=== PATIENT | female | born 1940 | race African-American/Black ===

== ENCOUNTER 2018-11-09 15:02 | Inpatient (IN) | payer MEDICARE, OTHER ==
--- NOTE | 2018-11-09 16:19 | RAD ---
CHEST ONE VIEW: 11/09/18 HISTORY: Weakness. COMPARISON: Radiograph 2006. FINDINGS: There appears to be some bronchiectasis in the upper lobes. No pneumothorax. No effusion. No air spac e consolidation. Cardiac silhouette and mediastinal contours are within normal limits. IMPRESSION: Mild scarring versus cephalization of the pulmonary vasculature in the upper lobes. No acute intratho racic abnormality. POS: CET
--- NOTE | 2018-11-09 16:19 | RAD ---
EXAM: 2 views of the left hip HISTORY: Left hip pain COMPARISON: None FINDINGS: 2 views of the left hip shows no evidence of acute fracture or dislocation. No degenerative changes are seen. No soft tissue swelling is present. A catheter in the pelvis may represent a YARDAGE CALLER shunt. IMPRESSION: No evidence of acute osseous abnormality.
--- NOTE | 2018-11-09 16:25 | RAD ---
EXAM: 2 views of the right hip HISTORY: Right hip pain COMPARISON: None FINDINGS: 2 views of the right hip shows no evidence of acute fracture or dislocation. There is protr usio of the right hip into the pelvis which can be seen with multiple etiologies. There is joint space narrowing of the acetabular roof. No soft tissue swelling is present. A catheter in the pelvis may represent a WELDER FABRICATOR shunt. IMPRESSION: Right hip degenerative change as above
--- NOTE | 2018-11-09 16:31 | RAD ---
EXAM: XR Pelvis AP STANDARD PROVIDED CLINICAL HISTORY: History COMPARISON: None FINDINGS: Partial visualization of a right ureteral stent with the distal portion overlying the expected locati on urinary bladder. There is bilateral hip osteoarthritis. There is disruption of the iliopectineal line on the right sug gesting an acetabular fracture on the right. There is no evidence of a dislocation. Degenerative changes are seen in the lower lumbar spine. IMPRESSION: Fracture right acetabulum. Further evaluation with CT pelvis is recommended. Above findings discussed with Angélica Boucher, Nurse practitioner in the emergency department on 11/09 at 1627 hours.
--- NOTE | 2018-11-09 16:37 | CT ---
BRAIN CT WITHOUT IV CONTRAST: 11/09/18 HISTORY: Altered mental status. Not feeling well, weakness, headache. There is some motion artifact. Low attenuation change in the anterior limb of the left internal capsu le, evidence for an old lacunar infarct. No focal mass or midline shift. No intra or extra-axial hemo rrhage. IMPRESSION: Old left sided lacunar infarct. No mass, bleed or other acute process. POS: TPC
[2018-11-09 16:50] LABS: #Lymphocytes 1.2 thou/uL (1.20-3.40); #Monocytes 2.1 thou/uL (0.11-0.59); #Neutrophils 12.8 thou/uL (1.40-6.50); %Basophils 0.1 % (0.0-1.0); %Eosinophils 0.1 % (0.0-10.0); %Lymphocytes 7.5 % (21.0-51.0); %Monocytes 13.1 % (0.0-10.0); %Neutrophils 79.3 % (42.0-75.0); Hemoglobin 8.2 g/dL (12.0-16.0); Mean Corpuscular HGB CONC 32.9 g/dL (32.0-36.0); Mean Corpuscular Hemoglobin 27.5 pg (27.0-31.0); Mean Corpuscular Volume 83.6 fL (78.0-98.0); Mean Platelet Volume 7.2 fL (7.4-10.4); Platelet Count 529 thou/uL (130-400); RBC Distribution Width 15.9 % (11.5-14.5); Red Blood Cell (RBC) Count 2.99 mill/uL (4.20-5.40); White Blood Cell (WBC) Count 16.2 thou/uL (4.8-10.8)
[2018-11-09 16:59] LABS: Bilirubin Negative (Negative); Blood, Urine Large (Negative); Clarity Clear (Clear); Glucose, Urine (Dipstick) Negative (Negative); Leukocyte Large (Negative); Nitrite Negative (Negative); Protein, Urine (Dipstick) > or equal to 300 mg/dL (Neg-Trace); Urobilinogen 0.2 mg/dL (0.2-1.0)
[2018-11-09 17:08] LABS: Bacteria/HPF 4+ HPF (None Seen); Hyaline Casts/LPF NONE SEEN LPF (0-3 Hyaline); Squamous Epithelial 0-3 HPF (0-3)
[2018-11-09 17:10] LABS: ALT (SGPT) 11 U/L (8-55); AST (SGOT) 12 U/L (5-34); Albumin 2.9 g/dL (3.4-4.8); Alkaline Phosphatase 96 U/L (40-150); Anion Gap 15 mmol/L (10-20); BUN (Urea Nitrogen) 79 mg/dL (9.8-20.1); Bilirubin, Total 0.2 mg/dL (0.2-1.2); CK (CPK) 103 U/L (29-168); Calc. Creatinine Clearance 0 mL/min (70-130); Calcium 9.3 mg/dL (7.8-10.44); Carbon Dioxide 14 mmol/L (23-31); Chloride 107 mmol/L (98-107); Estimated GFR-MDRD 14; Glucose 129 mg/dL (83-110); Potassium 5.4 mmol/L (3.5-5.1); Protein, Total 7.9 g/dL (6.0-8.3); Sodium 131 mmol/L (136-145)
--- NOTE | 2018-11-09 17:11 | CT ---
CT pelvis noncontrast HISTORY: Fall. Pelvic injury. FINDINGS: Nondisplaced comminuted fracture involves the superior and medial padilla of the right acetab ulum, including the anterior column and the posterior wall. No adjacent hematoma is apparent. There are degenerative changes of the hips, sacroiliac joints, and lower lumbar spine. Calcification in the arterial structures. Right ureteral stent partially visualized. IMPRESSION: Comminuted nondisplaced right acetabular fracture with intra-articular components.
[2018-11-09 17:29] LABS: CKMB 1.2 ng/mL (0-6.6)
[2018-11-09] MEDS ORDERED: cefTRIAXone\\ROCEPHIN 2 GM VIAL ONE (18:21)
[2018-11-09] MEDS ORDERED: hydrALAZINE 20 MG/ML VIAL SLOW IVP PRN (18:33)
[2018-11-09] MEDS ORDERED: Ondansetron PF 4 MG/2 ML Vial IVP PRN (18:33)
[2018-11-09] MEDS ORDERED: Promethazine HCl 25 MG/ML VIAL IM PRN (18:33)
[2018-11-09] MEDS ORDERED: Dextrose 50% Abboject 50 ML SYRINGE SLOW IVP PRN (18:33)
[2018-11-09] MEDS ORDERED: Dextrose 5% in Water 1,000 ML IV PRN (18:33)
[2018-11-09] MEDS ORDERED: traMADol HCl 50 MG TAB PO PRN (18:35)
[2018-11-09 20:15] LABS: Lactic Acid 1.2 mmol/L (0.5-2.2)
[2018-11-09] MEDS ORDERED: Sodium Chloride 1 GM TAB PO SCH (21:00)
[2018-11-09] MEDS ORDERED: Prevnar 13-Val Conj/PF 0.5 ML SYRINGE IM ONE (21:30)
[2018-11-09] MEDS: Senokot S 8.6-50 MG TAB PO SCH (22:09)
[2018-11-09] MEDS: Famotidine 20 MG TAB PO SCH (22:10)
[2018-11-09] MEDS: Cipro 250 MG TAB PO SCH (22:10)
[2018-11-09] MEDS: Acetaminophen 500 MG TAB PO SCH (22:10)
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
[2018-11-10] MEDS: Acetaminophen 500 MG TAB PO SCH ×4 (02:28→22:00)
[2018-11-10 05:07] LABS: Anion Gap 15 mmol/L (10-20); BUN (Urea Nitrogen) 80 mg/dL (9.8-20.1); Calc. Creatinine Clearance 11 mL/min (70-130); Calcium 9.7 mg/dL (7.8-10.44); Carbon Dioxide 16 mmol/L (23-31); Chloride 112 mmol/L (98-107); Estimated GFR-MDRD 16; Glucose 117 mg/dL (83-110); Magnesium 2.4 mg/dL (1.6-2.6); Phosphorus 3.8 mg/dL (2.3-4.7); Potassium 5.1 mmol/L (3.5-5.1); Sodium 138 mmol/L (136-145)
[2018-11-10 05:34] LABS: Band 13 % (5-11); Hemoglobin 8.5 g/dL (12.0-16.0); Lymphocytes 10 % (21-51); MDiff Complete? YES; Mean Corpuscular HGB CONC 31.8 g/dL (32.0-36.0); Mean Corpuscular Hemoglobin 26.4 pg (27.0-31.0); Mean Corpuscular Volume 83.1 fL (78.0-98.0); Mean Platelet Volume 8.7 fL (7.4-10.4); Monocytes 9 % (0-10); Neutrophil 66 % (42-75); Platelet Count 402 thou/uL (130-400); RBC Distribution Width 16.2 % (11.5-14.5); Red Blood Cell (RBC) Count 3.23 mill/uL (4.20-5.40); White Blood Cell (WBC) Count 13.6 thou/uL (4.8-10.8)
[2018-11-10] MEDS: Cipro 250 MG TAB PO SCH ×4 (06:18→22:00)
[2018-11-10] MEDS ORDERED: Cyclobenzaprine 10 MG TAB PO PRN (08:51)
--- NOTE | 2018-11-10 10:28 | CON ---
DATE OF CONSULTATION: 11/10/2018 REQUESTING PHYSICIAN: Christo Emerson MD CONSULTING PHYSICIAN: Jomar Grace MD REASON FOR CONSULTATION: Isolated right hemipelvis/acetabular fracture. BRIEF CLINICAL HISTORY: Shabana is an 78-year-old female, who was admitted by the Trauma Team yesterday evening after she slipped and fell at home. Plain radiographs obtained in the emergency room demonstrated a right minimally displaced acetabular fracture. She ambulates with a prosthesis secondary to a below-knee amputation 7 years ago. She has been admitted to the Telemetry Service and Dr. Young has also been consulted to further evaluate the circumstances of the fall. PHYSICAL EXAMINATION: GENERAL: This is an elderly and frail-appearing female, in no apparent distress. She is lying on her right side in the bed. She appears comfortable. MUSCULOSKELETAL: In her right hemipelvis, there is no displacement noted. There is no bruising. No breaks in the skin. Range of motion of the hips not assessed due to known underlying fracture. Neurovascular status difficult to assess due to below-knee amputation. IMAGING STUDIES: AP pelvis demonstrates a right hemipelvis fracture with minimal displacement extending through the acetabulum on the right. The medial wall appears to be a little displaced, but there is no gross protrusio. She does have deepening of the socket consistent with osteoarthritis, which probably led to the thinning of the medial wall. Superior aspect of the acetabulum appears to be intact, although she does have pretty significant arthritis on this side as far as deepening is concerned. IMPRESSION: 1. Acute right hemipelvis fracture (medial acetabular wall). 2. Deepening of the socket secondary to longstanding osteoarthritis of right hip. PLAN: 1. No surgical management is recommended at this time. Modified weightbearing to strict nonweightbearing on the right if possible. 2. No surgical plans are being made at this time for management of this pelvis. We will see the patient back and follow while she is hospitalized. Job ID: [id number]
--- NOTE | 2018-11-10 10:55 | ULT ---
US Renal Bilateral STANDARD HISTORY: Acute renal failure. COMPARISON: CT examination of 09/04/2006 FINDINGS: This examination was technically limited due to body habitus and inability to hold breath a nd inability to hold still for the exam. The right kidney measures 11.5 cm in size. There is a dense calcification seen in what appears to be the renal pelvis. The lower pole the right kidney has a very lobulated contour and I cannot exclude this is representing a mass on the basis of this study associated with this lobulated contour is some linear echogenic areas possibly calcification. This appears to measure approximately 7 cm in size. The left kidney is of increased echogenicity. It measures 11.2 cm. There is a 1 cm hypoechoic area in the inferior pole probably a parapelvic cyst. No obstruction. The bladder is unremarkable. Doppler evaluation with spectral analysis: Right renal artery velocity measurements are 156 cm/s the left are 133 cm/s. Aortic velocities are 16 7 cm/s. The resistive index on the right is 0.86 and on the left 0.83. IMPRESSION: 1. Dense calcification within the region of the right renal pelvis. The right kidney is distorted in appearance it has a lobulated masslike contour to the mid the lower pole region, I'm not certain where this is related to lobulation or a renal mass. Further investigation with CT would be recommend ed with and without contrast if possible. 2. Increased echogenicity to the cortex of the left kidney suggesting medical renal parenchymal disea se. No obstruction. 3. Mildly elevated resistive indexes of both kidneys.
[2018-11-10] MEDS: Polyethylene Glycol 3350 17 GM Packet PO SCH (11:18)
[2018-11-10] MEDS: Senokot S 8.6-50 MG TAB PO SCH ×2 (11:19→22:01)
--- NOTE | 2018-11-10 13:48 | PRG ---
DATE OF SERVICE: 11/10/2018 SUBJECTIVE: The patient was seen this morning, lying in bed on her left side. Reported pain was well controlled. She slept well overnight. The patient is still not fully cooperative with exam, but she reported she had no acute issues. She has had been previously placed on a low-potassium diabetic diet, which had been held by the nurses as they were concerned that she may have some kind of swallow abnormality. However, Dr. Mckeon did recommend that they performed a bedside swallow evaluation and put the diet back in for the patient. Dr. Grcae of Orthopedic Surgery to see the patient today as well as Dr. Young of Nephrology who follows the patient in the outpatient basis. OBJECTIVE: VITAL SIGNS: Temperature 99.1, pulse 83, respirations 18, oxygen saturation 95% on room air, and blood pressure 136/65. GENERAL: Well-appearing elderly female, lying in bed with no signs of acute distress. PULMONARY: Equal chest rise and fall. Clear breath sounds bilaterally. No signs of acute respiratory distress. CARDIAC: Regular rate and rhythm. No murmurs, gallops, or rubs. GI: Abdomen is soft, nontender, nondistended. EXTREMITIES: 2+ pulses in bilateral upper and left lower extremity. Right lower extremity with previous BKA. Otherwise, extremities are without signs of swelling. Gross motor and sensation are intact. NEUROLOGIC: GCS is 14, -1 for verbal, which is her baseline. Pupils equal, round, reactive to light bilaterally. Gross motor and sensation are intact bilaterally. LABORATORY FINDINGS: White count 13.6, hemoglobin 8.5, hematocrit 26.9, platelets 402. Sodium 138, potassium 5.1, chloride 112, carbon dioxide 16, BUN 8, creatinine 3.28, glucose 117, phosphorus 3.8, magnesium 2.4, troponin 0.030. DIAGNOSTIC FINDINGS: Echo completed today demonstrates left ventricular size is normal. Ejection fraction is visually estimated at 55% to 60%. The left atrium is moderately dilated. Mild annular calcification. No evidence of mitral regurg. Structurally normal aortic valve with no significant stenosis or regurgitation. Mild tricuspid regurgitation. Mildly elevated pulmonary artery pressure. Renal ultrasound ordered by Dr. Young completed today demonstrates dense calcification within the region of the right renal pelvis. The right kidney is distorted in appearance and it is lobulated masslike contour to the middle to lower pole region. I am not certain whether this is related to a lobulation or renal mass. Further investigation with CT would be recommended with and without contrast if possible. Increased echogenicity to the cortex of the left kidney suggests medical renal parenchymal disease. No obstruction. Mildly elevated restrictive index of both kidneys. ASSESSMENT: 1. Status post unwitnessed fall 3 days before presentation. 2. Right acetabular fracture. 3. Urinary tract infection, uncomplicated. 4. Hyponatremia, resolved. 5. Hyperkalemia, improved. 6. History of right lower extremity below-knee amputation, chronic kidney disease, left ureteral stent, diabetes, and hypertension. PLAN: The patient will continue monitoring on the telemetry floor. She has no arrhythmias. She will be transferred to the surgical floor as early as tomorrow. The patient is to be seen by Dr. Grace today for further evaluation of the right acetabular fracture. She is non-op until that time. Dr. Young of Nephrology to see the patient. He sees her on outpatient basis. He will make further recommendations at that time. She is to have a low-potassium diabetic diet. Continue current pain regimen. Cipro x5 days for uncomplicated UTI. The patient still has blood and urine cultures pending. We will follow those up to work with Physical and Occupational Therapy after deemed safe by Dr. Grace. The patient will likely be discharged to a [facility] facility and that consult has been placed for the case workers. The patient was seen and examined by Dr. Mckeon this morning during rounds. Job ID: [id number]
[2018-11-10] MEDS: Nystatin 500,000 UNITS/5 ML UDCUP SSW SCH ×3 (13:59→22:00)
[2018-11-10] MEDS: hydrALAZINE 25 MG TAB PO SCH ×2 (14:01→22:01)
[2018-11-10] MEDS: Metoprolol Tartrate 50 MG TAB PO SCH (14:11)
--- NOTE | 2018-11-10 14:49 | PQF ---
CLINICAL DOCUMENTATION IMPROVEMENT CLARIFICATION FORM: ICD-10 Updated PLEASE DO AN ADDENDUM TO THE PROGRESS NOTE WITH ANY DOCUMENTATION UPDATES OR ADDITIONS AND CARRY THROUGH TO DC SUMMARY. THANK YOU. DATE: 11/10/18 ATTN: VIJAY ANAND Please exercise your independent, professional judgment in responding to the clarification form. Clinical indicators are provided on the bottom of this form for your review Please check appropriate box(es): [ ] Sepsis due to: (Pna, UTI, gangrenous gall bladder, etc.) Due to: [ ] Device (please specify) [ ] Implant [ ] Graft [ ] Infusion [ ] SIRS due to non-infectious process (please specify etiology) [ ] with organ dysfunction [ ] without organ dysfunction [ ] Severe sepsis with acute organ dysfunction of: (Examples: respiratory failure, encephalopathy, acute kidney failure, other) [ ] Septic Shock [ ] Localized infection without sepsis [ ] Other diagnosis [ ] Unable to determine In addition, please specify: Present on Admission (POA): [ ] Yes [ ] No [ ] Unable to determine For continuity of documentation, please document condition throughout progress notes and discharge summary. Thank You. CLINICAL INDICATORS - SIGNS / SYMPTOMS / LABS ER NOTE: "PATIENT IS CRITICALLY ILL WITH SEPSIS WITH END ORGAN DYSFUNCTION" WBC 16.2 BANDS 13 RISKS: UTI ACUTE RENAL FAILURE (ER NOTE) TREATMENT: IV ROCEPHIN (ER) CIPRO (11/09-11/14) BLOOD AND URINE CULTURES NEPHROLOGY CONSULT (This form is maintained as a part of the permanent medical record) 2014 [employer]. All Rights Reserved PAPO [email or web address] Office: [phone] [facility]
[2018-11-10] MEDS: Heparin 5,000 UNITS/ML VIAL SC SCH (22:00)
[2018-11-10] MEDS: Famotidine 20 MG TAB PO SCH (22:06)
[2018-11-11] MEDS: Acetaminophen 500 MG TAB PO SCH ×4 (02:50→21:41)
[2018-11-11] MEDS: Cipro 250 MG TAB PO SCH ×2 (05:57→21:41)
[2018-11-11 06:31] LABS: Anion Gap 16 mmol/L (10-20); BUN (Urea Nitrogen) 72 mg/dL (9.8-20.1); Calc. Creatinine Clearance 12 mL/min (70-130); Calcium 9.6 mg/dL (7.8-10.44); Carbon Dioxide 13 mmol/L (23-31); Chloride 113 mmol/L (98-107); Estimated GFR-MDRD 19; Glucose 108 mg/dL (83-110); Magnesium 2.4 mg/dL (1.6-2.6); Phosphorus 3.7 mg/dL (2.3-4.7); Potassium 4.9 mmol/L (3.5-5.1); Sodium 137 mmol/L (136-145)
[2018-11-11 06:38] LABS: Band 5 % (5-11); Hemoglobin 8.3 g/dL (12.0-16.0); Lymphocytes 20 % (21-51); MDiff Complete? YES; Mean Corpuscular HGB CONC 32.3 g/dL (32.0-36.0); Mean Corpuscular Hemoglobin 27.4 pg (27.0-31.0); Mean Corpuscular Volume 84.8 fL (78.0-98.0); Mean Platelet Volume 7.4 fL (7.4-10.4); Monocytes 13 % (0-10); Neutrophil 62 % (42-75); Platelet Count 580 thou/uL (130-400); Platelet Morphology Comment Appears Increased; RBC Distribution Width 16.1 % (11.5-14.5); Red Blood Cell (RBC) Count 3.03 mill/uL (4.20-5.40)
[2018-11-11] MEDS ORDERED: Lisinopril 20 MG TAB PO SCH ×2 (09:00→15:30)
[2018-11-11] MEDS: Nystatin 500,000 UNITS/5 ML UDCUP SSW SCH ×4 (09:34→21:41)
[2018-11-11] MEDS: Senokot S 8.6-50 MG TAB PO SCH ×2 (09:35→21:40)
[2018-11-11] MEDS: NIFEdipine XL 60 MG TAB PO SCH (09:37)
[2018-11-11] MEDS: traMADol HCl 50 MG TAB PO PRN (09:37)
[2018-11-11] MEDS: Metoprolol Tartrate 50 MG TAB PO SCH (09:37)
[2018-11-11] MEDS: Polyethylene Glycol 3350 17 GM Packet PO SCH (09:38)
[2018-11-11] MEDS: hydrALAZINE 25 MG TAB PO SCH ×2 (09:39→15:15)
[2018-11-11] MEDS: Heparin 5,000 UNITS/ML VIAL SC SCH ×3 (09:39→21:41)
[2018-11-11] MEDS: HumaLOG 300 UNITS/3 ML VIAL SC PRN (13:12)
[2018-11-11] MEDS ORDERED: Sodium Chloride 0.9% 500 ML IV SCH (15:15)
[2018-11-11] MEDS: Famotidine 20 MG TAB PO SCH (21:41)
[2018-11-12] MEDS: Acetaminophen 500 MG TAB PO SCH ×4 (03:06→20:34)
[2018-11-12] MEDS: Cipro 250 MG TAB PO SCH ×2 (05:59→20:34)
[2018-11-12 06:28] LABS: Anion Gap 15 mmol/L (10-20); BUN (Urea Nitrogen) 73 mg/dL (9.8-20.1); Calc. Creatinine Clearance 13 mL/min (70-130); Calcium 9.6 mg/dL (7.8-10.44); Carbon Dioxide 13 mmol/L (23-31); Chloride 116 mmol/L (98-107); Estimated GFR-MDRD 19; Glucose 118 mg/dL (83-110); Magnesium 2.3 mg/dL (1.6-2.6); Phosphorus 3.8 mg/dL (2.3-4.7); Sodium 139 mmol/L (136-145)
[2018-11-12 06:42] LABS: Band 19 % (5-11); Eosinophils 1 % (0-10); Lymphocytes 11 % (21-51); MDiff Complete? YES; Mean Corpuscular HGB CONC 30.1 g/dL (32.0-36.0); Mean Corpuscular Hemoglobin 25.7 pg (27.0-31.0); Mean Corpuscular Volume 85.4 fL (78.0-98.0); Monocytes 13 % (0-10); Neutrophil 56 % (42-75); Platelet Count 591 thou/uL (130-400); Platelet Morphology Comment Appears Increased; RBC Distribution Width 16.5 % (11.5-14.5); Red Blood Cell (RBC) Count 3.11 mill/uL (4.20-5.40); White Blood Cell (WBC) Count 9.9 thou/uL (4.8-10.8)
[2018-11-12] MEDS ORDERED: Cyclobenzaprine 10 MG TAB PO PRN (09:05)
--- NOTE | 2018-11-12 09:18 | PRG ---
DATE OF SERVICE: 11/11/2018 SUBJECTIVE: The patient is an 78-year-old female, comes into the emergency room three days after an unwitnessed fall at home. The patient sustained a right acetabular fracture and generalized weakness. The patient was admitted to telemetry under Trauma Service. Orthopedics, Dr. Grace was consulted. The patient was seen by Herbie Shah PA-C who is the assistant floor covering printer of Dr. Grace. Patient was diagnosis with acute right hemipelvic fracture, medial acetabular wall, deepening of the socket secondary to longstanding osteoarthritis of right hip. Plan of Orthopedic Surgery is no surgical management recommended at this time. Modified weightbearing to strict nonweightbearing on the right if possible. During hospital course, in telemetry, the patient was found to have UTI and right ureteral stent on pelvis CT scan. Ureteral stent history is not clear by the family member. We will contact with the patient's primary doctor to find out history of the ureteral stent. Overall, the patient has been able to tolerate a regular diet. No fever, no chest pain, no shortness of breath was noted. OBJECTIVE: GENERAL: The patient is lying down, demonstrating mild uncomfortable due to lower back pain, in no respiratory distress. VITAL SIGNS: Temperature 98.3, pulse 64, respiratory rate 18, O2 saturation 97 on room air, and blood pressure 100/49. PULMONARY: Equal chest rise and fall. Breath sounds are clear bilaterally. CARDIAC: Regular rate and rhythm. GI: Abdomen is soft and nontender. EXTREMITIES: No swelling is noted. NEUROLOGIC: GCS is 15. No gross motor and sensation examined. Pupils are equal, round, and reactive. LABORATORY FINDINGS: Her white blood cell count is 10, hemoglobin 8.3. Sodium 137, potassium 4.9, creatinine 2.88. Creatinine is improved from 3.7 on the 25th to 2.88. Blood glucose is 306. The patient is on insulin sliding scale. ASSESSMENT: 1. Status post mechanical fall. 2. Right acetabular fracture, no surgical management. 3. Urinary tract infection, right ureteral stent. 4. Chronic kidney disease. 5. Diabetes. 6. Hypertension. PLAN: 1. Continue UTI treatment. 2. Finish nutrition status. 3. Pain control. 4. Working with primary doctor, Urology doctor to determine the time course of right ureteral stenting and course of treatment. Continue to manage blood glucose using insulin sliding scale. 5. Prophylaxis DVT, gastritis, The patient was seen at request of Dr. Mckeon on round this morning, who is agreed with treatment plan. Job ID: [id number] MTDD
[2018-11-12] MEDS: NIFEdipine XL 60 MG TAB PO SCH (09:32)
[2018-11-12] MEDS: Senokot S 8.6-50 MG TAB PO SCH ×2 (09:33→20:49)
[2018-11-12] MEDS: Nystatin 500,000 UNITS/5 ML UDCUP SSW SCH ×5 (09:33→20:48)
[2018-11-12] MEDS: Metoprolol Tartrate 50 MG TAB PO SCH (09:33)
[2018-11-12] MEDS: Heparin 5,000 UNITS/ML VIAL SC SCH ×3 (09:33→20:35)
[2018-11-12] MEDS: Polyethylene Glycol 3350 17 GM Packet PO SCH (09:34)
[2018-11-12 12:32] VITALS: BMI 18.6
--- NOTE | 2018-11-12 14:19 | PRG ---
DATE OF SERVICE: 11/12/2018 SUBJECTIVE: This is an 78-year-old female, who came for evaluation of right hip pain after an unwitnessed fall at home. The patient was diagnosed with right acetabular fracture. The patient was consulted with an orthopedic doctor, and the orthopedic doctor decided nonsurgical treatment. The patient was monitored on telemetry floor. During the hospital stay, the patient reports no shortness of breath or fever. The patient was able to tolerate a regular diet. The patient 's pain is well tolerated. Weight is stable. No overnight events. We are unable to obtain history of the right renal pain and the course of treatment. The patient was seen by Nephrology, who agreed with treatment plan. Dr. Mckeon discussed with Hospitalist Dr Galindo regarding to patient transferring plan medical floor today. OBJECTIVE: VITAL SIGNS: Temperature 98, pulse 83, respiratory rate 18, O2 saturations 95% on room air, blood pressure 150/60. GENERAL: Well-appearing elderly female, lying in bed with no signs of acute distress. PULMONARY: Equal chest rise and fall. Clear breath sounds bilaterally. No signs of acute respiratory distress. CARDIAC: Regular rate and rhythm. No murmurs. GASTROINTESTINAL: Abdomen is soft, nontender, and nondistended. EXTREMITIES: 2+ pulses in bilateral upper and left lower extremities. Right lower extremity with previous BKA. Otherwise, extremities are without swelling. Gross motor and sensation are intact. NEUROLOGIC: GCS is 15. Pupils are equal, round, and reactive to light bilateral. Gross motor and sensation are intact bilaterally LABORATORY DATA: Hemoglobin 8.0. Sodium 139, potassium 5. Phosphorus 3.8. Magnesium 2.3. Calcium 9.6. Creatinine 2.94 and BUN 73. DIAGNOSTIC FINDINGS: No new diagnostic findings reported. ASSESSMENT AND PLAN: 1. Status post unwitnessed fall 3 days before presentation. 2. Right acetabular fracture. 3. Urinary tract infection, uncomplicated. 4. Hyponatremia, resolved. 5. Hyperkalemia. 6. Chronic kidney disease. 7. Right ureteral stent. 8. History of right lower extremity below-knee amputation. 9. Diabetes. 10. Hypertension. PLAN. The patient is continued to be monitored for electrolyte and kidney function. Continue UTI treatment. The patient is to work with PT and OT. The patient will be transferred to medical floor due to nonsurgical treatment of her right acetabular fracture fragment. The patient was examined and discussed with Dr. Mckeon this morning during rounds. Job ID: [id number] [email or web address]
[2018-11-12] MEDS: HumaLOG 300 UNITS/3 ML VIAL SC PRN (14:42)
--- NOTE | 2018-11-12 15:45 | PRG ---
DATE OF SERVICE: 11/12/2018 SUBJECTIVE: The patient currently eating breakfast with an aide in the room. She denies any right hip pain at this time. She states that she has been out of bed yesterday several times. She ambulates with a prosthesis secondary to a [id number] amputation, and states that she has not walked with her prosthesis yet, but has been out of bed to a bedside chair, just mainly transferring. She denies any right hip pain at this time. OBJECTIVE: VITAL SIGNS: Temperature 97.8, pulse of 62, respiratory rate of 18, and blood pressure 113/62. GENERAL: The patient is awake and alert. She is in no apparent distress. She is sitting up in bed. Evaluation of the right lower extremity shows a BKA present. Passive range of motion in the hip without any discomfort elicited. No tenderness to palpation in this region. The patient does actively move her lower extremity. ASSESSMENT AND PLAN: The patient with nonoperative nondisplaced right acetabulum fracture. Continue nonweightbearing to the right lower extremity when she uses her prosthesis. She will follow up in the office for followup evaluation with x-rays in approximately 4 weeks. We will continue to follow this patient while she is in the hospital. Job ID: [id number]
--- NOTE | 2018-11-12 17:37 | CT ---
Exam: Abdomen CT scan without IV contrast: HISTORY: Possible renal mass on ultrasound, follow-up The lung bases are clear. The liver, gallbladder, pancreas, spleen, and adrenal glands are unremarkab le. The left kidney appears unremarkable. There is marked enlargement of the right kidney with a right ureteral stent in place with extensive calcifications associated with the intrarenal portion of the stent consistent with extensive concretions. There is very severe hydronephrosis of the right kidney with a very markedly thinned renal cortex with extensive calyceal dilatation with some air wit hin the dilated renal pelvis. There is a small left renal cyst. There is 1 small left lower pole somewhat linear probable renal calculus. No large or small bowel obstruction. IMPRESSION: Enlargement of the right kidney with very severe hydronephrosis. Right ureteral stent in place with e xtensive concretions around the stent in the infrarenal aspect. Air-fluid levels within the dilated upper collecting system. Consider urology consult for further evaluation.
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
[2018-11-12] MEDS: Famotidine 20 MG TAB PO SCH (20:48)
[2018-11-13] MEDS: Acetaminophen 500 MG TAB PO SCH ×4 (03:09→21:35)
[2018-11-13] MEDS: Cipro 250 MG TAB PO SCH ×2 (05:11→21:35)
[2018-11-13] MEDS: traMADol HCl 50 MG TAB PO PRN (05:14)
[2018-11-13] MEDS: Metoprolol Tartrate 50 MG TAB PO SCH (09:12)
[2018-11-13] MEDS: Senokot S 8.6-50 MG TAB PO SCH ×2 (09:12→21:35)
[2018-11-13] MEDS: Nystatin 500,000 UNITS/5 ML UDCUP SSW SCH ×4 (09:12→21:55)
[2018-11-13] MEDS: Heparin 5,000 UNITS/ML VIAL SC SCH ×3 (09:12→21:35)
[2018-11-13] MEDS: NIFEdipine XL 60 MG TAB PO SCH (09:12)
[2018-11-13] MEDS: Polyethylene Glycol 3350 17 GM Packet PO SCH (09:12)
[2018-11-13] MEDS: HumaLOG 300 UNITS/3 ML VIAL SC PRN (17:09)
[2018-11-13] MEDS: Famotidine 20 MG TAB PO SCH (21:45)
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
[2018-11-14] MEDS: Acetaminophen 500 MG TAB PO SCH ×4 (03:39→21:38)
[2018-11-14] MEDS: Cipro 250 MG TAB PO SCH ×2 (07:16→21:38)
[2018-11-14] MEDS: NIFEdipine XL 60 MG TAB PO SCH (08:47)
[2018-11-14] MEDS: Senokot S 8.6-50 MG TAB PO SCH ×2 (08:47→21:38)
[2018-11-14] MEDS: Metoprolol Tartrate 50 MG TAB PO SCH (08:48)
[2018-11-14] MEDS: Heparin 5,000 UNITS/ML VIAL SC SCH ×3 (08:54→21:38)
[2018-11-14] MEDS: Nystatin 500,000 UNITS/5 ML UDCUP SSW SCH ×4 (09:16→21:39)
[2018-11-14] MEDS: Polyethylene Glycol 3350 17 GM Packet PO SCH (09:16)
[2018-11-14 11:18] LABS: #Eosinphils 0.2 thou/uL (0.0-0.7); #Lymphocytes 1.8 thou/uL (1.20-3.40); #Monocytes 1.3 thou/uL (0.11-0.59); #Neutrophils 5.9 thou/uL (1.40-6.50); %Basophils 0.4 % (0.0-1.0); %Eosinophils 1.7 % (0.0-10.0); %Lymphocytes 19.6 % (21.0-51.0); %Monocytes 13.7 % (0.0-10.0); %Neutrophils 64.6 % (42.0-75.0); Hemoglobin 8.2 g/dL (12.0-16.0); Mean Corpuscular HGB CONC 32.8 g/dL (32.0-36.0); Mean Corpuscular Hemoglobin 27.7 pg (27.0-31.0); Mean Corpuscular Volume 84.5 fL (78.0-98.0); Platelet Count 576 thou/uL (130-400); RBC Distribution Width 16.4 % (11.5-14.5); Red Blood Cell (RBC) Count 2.94 mill/uL (4.20-5.40); White Blood Cell (WBC) Count 9.1 thou/uL (4.8-10.8)
[2018-11-14 11:37] LABS: Anion Gap 16 mmol/L (10-20); BUN (Urea Nitrogen) 56 mg/dL (9.8-20.1); Calc. Creatinine Clearance 14 mL/min (70-130); Calcium 9.7 mg/dL (7.8-10.44); Carbon Dioxide 16 mmol/L (23-31); Chloride 114 mmol/L (98-107); Estimated GFR-MDRD 23; Glucose 123 mg/dL (83-110); Potassium 5.5 mmol/L (3.5-5.1); Sodium 140 mmol/L (136-145)
--- NOTE | 2018-11-14 15:21 | PDOC.PN ---
- Subjective Encounter Start Date: 11/14/18 Encounter Start Time: 14:18 No complaints. - Objective Vital Signs & Weight: Vital Signs (12 hours) Temp Pulse Resp BP BP Pulse Ox 11/14/18 15:12 97.8 F 72 16 137/66 100 11/14/18 11:25 98.2 F 74 14 115/52 L 100 11/14/18 08:47 82 11/14/18 08:18 99 11/14/18 07:18 98.2 F 82 12 138/62 99 11/14/18 03:57 97.9 F 82 16 155/73 H 99 Weight Admit Weight 108 lb 4.8 oz Weight 108 lb 3 oz I&O: 11/13/18 11/14/18 11/15/18 06:59 06:59 06:59 Intake Total 120 240 490 Output Total 1 1043 Balance 120 239 -553 Result Diagrams: 11/14/18 11:07 11/14/18 11:07 Additional Labs: Accuchecks 11/14/18 11/14/18 11/13/18 11:29 06:08 20:31 POC Glucose 132 H 136 H 136 H 11/13/18 16:00 POC Glucose 180 H Phys Exam - Physical Examination Constitutional: NAD Confused at baseline with dementia Respiratory: no wheezing, no rales, no rhonchi Cardiovascular: RRR, no significant murmur, no rub Gastrointestinal: soft, non-tender, no distention, positive bowel sounds Musculoskeletal: no edema Neurological: non-focal Psychiatric: normal affect Skin: normal turgor Dx/Plan (1) Closed right acetabular fracture Code(s): S32.401A - UNSP FRACTURE OF RIGHT ACETABULUM, INIT FOR CLOS FX Status : Acute Comment: Non-surgical. NWB. (2) UTI (urinary tract infection) Status: Acute Comment: Likely chronic and related to the indwelling catheter. Continue Cipro indefinitely or until the stent situation is surgically resolved. (3) Hydroureter Code(s): N13.4 - HYDROURETER Status: Acute Comment: Chronic. Secondary to concretions around the very old stent. (4) Inflammatory reaction due to indwelling ureteral stent Code(s): T83.592A - I/I REACT D/T INDWELLING URETERAL STENT, INITIAL ENCOUNTER Status: Acute (5) CKD (chronic kidney disease), stage IV Code(s): N18.4 - CHRONIC KIDNEY DISEASE, STAGE 4 (SEVERE) Status: Acute (6) Anemia Code(s): D64.9 - ANEMIA, UNSPECIFIED Status: Acute (7) Thrombocytosis Status: Acute (8) HTN (hypertension) Code(s): I10 - ESSENTIAL (PRIMARY) HYPERTENSION Status: Acute (9) Diabetes Code(s): E11.9 - TYPE 2 DIABETES MELLITUS WITHOUT COMPLICATIONS Status: Acute - Plan * Will need SNF while healing from the acetabular fracture. * NWB even with prosthesis until healed. * Will need to stay on suppressive abx until she is seen by Urology and a definitive plan determined. Life-long suppression may be the best answer. * Will need to follow up with ortho after to reassess the acetabulum and to be released for weight-bearing at some point. * Case management consulted for SNF placement.
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
[2018-11-14] MEDS: Famotidine 20 MG TAB PO SCH (21:38)
[2018-11-15] MEDS: Acetaminophen 500 MG TAB PO SCH ×4 (02:58→21:39)
[2018-11-15] MEDS: Nystatin 500,000 UNITS/5 ML UDCUP SSW SCH ×4 (07:52→21:39)
[2018-11-15] MEDS: Polyethylene Glycol 3350 17 GM Packet PO SCH (07:52)
[2018-11-15] MEDS: Senokot S 8.6-50 MG TAB PO SCH ×2 (07:52→21:39)
[2018-11-15] MEDS: Heparin 5,000 UNITS/ML VIAL SC SCH ×3 (07:54→21:39)
[2018-11-15] MEDS: Metoprolol Tartrate 50 MG TAB PO SCH (07:54)
[2018-11-15] MEDS: NIFEdipine XL 60 MG TAB PO SCH (07:54)
--- NOTE | 2018-11-15 10:17 | PRG ---
DATE OF SERVICE: 11/15/2018 SUBJECTIVE: Shabana is an 78-year-old female, we have been following for a right superomedial wall acetabular fracture. She has been nonweightbearing, but the patient does have a prosthesis on the right leg secondary to BKA some years ago. Otherwise, she has been compliant. Repeat radiographs obtained today demonstrate actually an improvement in the fracture appearance. There is no protrusio noted in this otherwise deep socket arthritic hip. PHYSICAL EXAMINATION: Hip range of motion has improved, but she is still nonweightbearing. IMPRESSION: An 78-year-old female with right hip deep socket arthritis with a superomedial wall minimally displaced fracture with interval improvement. PLAN: 1. Continue nonweightbearing. 2. Re-consult as needed. 3. Follow up in 2 to 3 weeks in clinic with radiographs has been ordered on the discharge plan. Job ID: [id number]
--- NOTE | 2018-11-15 11:10 | RAD ---
RIGHT HIP 2 VIEWS: Date: 11/15/18 INDICATION: History of right hip fracture. COMPARISON: Prior exam dated 11/09/18. FINDINGS: The right hip acetabular fracture with mild protrusio deformity is not appreciably changed from the c omparison examination. Diffuse osteopenia is again noted. There is partial visualization of a right u reteral stent. IMPRESSION: Stable right acetabular fracture. POS: CET
--- NOTE | 2018-11-15 11:25 | RAD ---
AP VIEW PELVIS: Date: 11/15/18 INDICATION: Evaluate fracture. COMPARISON: Prior exam dated 11/09/18. FINDINGS: The superior and medial right acetabular wall fracture is not appreciably changed in position. Diffus e osteopenia is similar appearing. Protrusio deformity of the right hip is stable. Right-sided ureter al stent is stable. Diffuse osteopenia persists. IMPRESSION: Right acetabular fracture without evidence of displacement or interval healing. POS: CET
[2018-11-15] MEDS: HumaLOG 300 UNITS/3 ML VIAL SC PRN (11:59)
--- NOTE | 2018-11-15 17:52 | PDOC.PN ---
- Subjective Encounter Start Date: 11/15/18 Encounter Start Time: 17:50 Ms. Marina was seen today in follow-up of fall with acetabular fracture. She does not have any complaints. - Objective MAR Reviewed: Yes Vital Signs & Weight: Vital Signs (12 hours) Temp Pulse Resp BP BP Pulse Ox 11/15/18 15:44 98.5 F 68 16 136/53 L 100 11/15/18 11:00 98.3 F 73 14 149/70 H 97 11/15/18 08:09 97 11/15/18 07:54 73 11/15/18 07:49 98 F 72 14 121/63 97 Weight Admit Weight 108 lb 4.8 oz Weight 108 lb 3 oz I&O: 11/14/18 11/15/18 11/16/18 06:59 06:59 06:59 Intake Total 240 970 Output Total 1 1043 Balance 239 -73 Result Diagrams: 11/14/18 11:07 11/14/18 11:07 Additional Labs: Accuchecks 11/15/18 11/15/18 11/15/18 15:49 11:04 05:41 POC Glucose 117 H 172 H 107 11/14/18 20:32 POC Glucose 154 H Phys Exam - Physical Examination HEENT: PERRLA Respiratory: no wheezing, no rales, no rhonchi, clear to auscultation bilateral Cardiovascular: RRR, no significant murmur, no rub Gastrointestinal: soft, non-tender, no distention, positive bowel sounds Musculoskeletal: no edema, pulses present Dx/Plan (1) Closed right acetabular fracture Code(s): S32.401A - UNSP FRACTURE OF RIGHT ACETABULUM, INIT FOR CLOS FX Status : Acute Comment: Non-surgical. NWB. (2) Diabetes Code(s): E11.9 - TYPE 2 DIABETES MELLITUS WITHOUT COMPLICATIONS Status: Acute (3) HTN (hypertension) Code(s): I10 - ESSENTIAL (PRIMARY) HYPERTENSION Status: Acute - Plan * Right closed acetabular fracture-continue conservative management * DM- blood glucose is stable * HTN- blood pressure is stable * Awaiting long-term placement.
[2018-11-15] MEDS: Famotidine 20 MG TAB PO SCH (21:38)
[2018-11-16] MEDS: Acetaminophen 500 MG TAB PO SCH ×4 (04:53→19:48)
[2018-11-16] MEDS: Polyethylene Glycol 3350 17 GM Packet PO SCH (09:47)
[2018-11-16] MEDS: Metoprolol Tartrate 50 MG TAB PO SCH (09:47)
[2018-11-16] MEDS: NIFEdipine XL 60 MG TAB PO SCH (09:47)
[2018-11-16] MEDS: Heparin 5,000 UNITS/ML VIAL SC SCH ×3 (09:47→19:48)
[2018-11-16] MEDS: Nystatin 500,000 UNITS/5 ML UDCUP SSW SCH ×4 (09:47→19:48)
[2018-11-16] MEDS: Senokot S 8.6-50 MG TAB PO SCH ×2 (09:48→19:41)
--- NOTE | 2018-11-16 11:51 | PDOC.PN ---
- Subjective Encounter Start Date: 11/16/18 Encounter Start Time: 11:00 Subjective: awake, not in distress - Objective MAR Reviewed: Yes Vital Signs & Weight: Vital Signs (12 hours) Temp Pulse Resp BP Pulse Ox 11/16/18 09:47 71 11/16/18 07:30 98.4 F 71 16 120/57 L 100 11/16/18 04:15 98.2 F 69 18 156/62 H 100 11/16/18 00:00 98.4 F 65 16 152/67 H 99 Weight Admit Weight 108 lb 4.8 oz Weight 108 lb 3 oz I&O: 11/15/18 11/16/18 11/17/18 06:59 06:59 06:59 Intake Total 970 240 Output Total 1043 Balance -73 240 Result Diagrams: 11/14/18 11:07 11/14/18 11:07 Additional Labs: Accuchecks 11/16/18 11/15/18 11/15/18 05:40 21:16 15:49 POC Glucose 96 119 H 117 H Phys Exam - Physical Examination HEENT: PERRLA, moist MMs Neck: no JVD, supple Respiratory: no wheezing, no rales Cardiovascular: RRR, no significant murmur Gastrointestinal: soft, non-tender, positive bowel sounds Musculoskeletal: pulses present right bka Neurological: non-focal, moves all 4 limbs Dx/Plan (1) ANATOLY (acute kidney injury) Code(s): N17.9 - ACUTE KIDNEY FAILURE, UNSPECIFIED Status: Acute (2) Closed right acetabular fracture Code(s): S32.401A - UNSP FRACTURE OF RIGHT ACETABULUM, INIT FOR CLOS FX Status : Acute Qualifiers: Encounter type: subsequent encounter Comment: Non-surgical. NWB. (3) CKD (chronic kidney disease), stage IV Code(s): N18.4 - CHRONIC KIDNEY DISEASE, STAGE 4 (SEVERE) Status: Chronic (4) Hydroureter Code(s): N13.4 - HYDROURETER Status: Acute Comment: Chronic. Secondary to concretions around the very old stent. (5) Diabetes Code(s): E11.9 - TYPE 2 DIABETES MELLITUS WITHOUT COMPLICATIONS Status: Chronic Qualifiers: Diabetes mellitus type: type 2 Diabetes mellitus complication status: with kidney complications Diabetes mellitus complication detail: with chronic kidney disease Chronic kidney disease stage: stage 3 (moderate) (6) HTN (hypertension) Code(s): I10 - ESSENTIAL (PRIMARY) HYPERTENSION Status: Chronic Qualifiers: Hypertension type: essential hypertension Qualified Code(s): I10 - Essential (primary) hypertension (7) Anemia Code(s): D64.9 - ANEMIA, UNSPECIFIED Status: Chronic Qualifiers: Anemia type: unspecified type Qualified Code(s): D64.9 - Anemia, unspecified - Plan hemostable -: continue lopressor, procardia xl, humalog sliding scale, nebs -: gentle iv hydration, labs for today -: dc planning -: PT to mobilize as tolerated, has right bka+fracture+NWB * . Review of Systems - Medications/Allergies Allergies/Adverse Reactions: Allergies Allergy/AdvReac Type Severity Reaction Status Date / Time No Known Drug Allergies Allergy Verified 11/09/18 21:01 Medications: Current Medications Acetaminophen (Tylenol) 1,000 mg PO 0200,0800,1400,2000 [facility] Last Admin: 11/16/18 09:46 Dose: 1,000 mg Albuterol/Ipratropium (Duoneb) 3 ml NEB Q4H PRN PRN Reason: Wheezing Cyclobenzaprine HCl (Flexeril) 5 mg PO TID PRN PRN Reason: Muscle Spasm Dextrose/Water (Dextrose 50%) 25 gm SLOW IVP PRN PRN PRN Reason: Hypoglycemia Famotidine (Pepcid) 20 mg PO Q24HR [facility] Last Admin: 11/15/18 21:38 Dose: 20 mg Glucagon (Glucagon) 1 mg IM PRN PRN PRN Reason: Hypoglycemia Heparin Sodium (Porcine) (Heparin) 5,000 units SC TID [facility] Last Admin: 11/16/18 09:47 Dose: 5,000 units Hydralazine HCl (Apresoline) 10 mg SLOW IVP Q4H PRN PRN Reason: SBP > 170 or DBP > 100 Dextrose/Water (D5w) 1,000 mls @ 0 mls/hr IV .Q0M PRN PRN Reason: Hypoglycemia Insulin Human Lispro (Humalog) 0 units SC .MILD SLIDING SCALE PRN PRN Reason: Mild Correctional Scale Last Admin: 11/15/18 11:59 Dose: 2 unit Metoprolol Tartrate (Lopressor) 50 mg PO DAILY [facility] Last Admin: 11/16/18 09:47 Dose: 50 mg Nifedipine (Procardia Xl) 60 mg PO DAILY [facility] Last Admin: 11/16/18 09:47 Dose: 60 mg Nystatin (Mycostatin) 500,000 units SSW QID [facility] Last Admin: 11/16/18 09:47 Dose: 500,000 units Ondansetron HCl (Zofran) 4 mg IVP Q6H PRN PRN Reason: Nausea Polyethylene Glycol (Miralax) 17 gm PO DAILY [facility] Last Admin: 11/16/18 09:47 Dose: Not Given Promethazine HCl (Phenergan) 12.5 mg IM Q4H PRN PRN Reason: Nausea Senna/Docusate Sodium (Senokot S) 2 tab PO BID [facility] Last Admin: 11/16/18 09:48 Dose: Not Given Sodium Chloride (Flush - Normal Saline) 10 ml IVF PRN PRN PRN Reason: Saline Flush Last Admin: 11/11/18 09:42 Dose: 10 ml Tramadol HCl (Ultram) 50 mg PO Q12H PRN PRN Reason: Moderate to Severe Pain (6-10) Last Admin: 11/13/18 05:14 Dose: 50 mg Tramadol HCl (Ultram) 50 mg PO Q12H PRN PRN Reason: Breakthrough Pain
[2018-11-16 12:46] LABS: #Eosinphils 0.2 thou/uL (0.0-0.7); #Neutrophils 6.9 thou/uL (1.40-6.50); %Basophils 0.1 % (0.0-1.0); %Lymphocytes 19.7 % (21.0-51.0); %Monocytes 9.8 % (0.0-10.0); %Neutrophils 68.4 % (42.0-75.0); Hemoglobin 8.9 g/dL (12.0-16.0); Mean Corpuscular HGB CONC 31.6 g/dL (32.0-36.0); Mean Corpuscular Hemoglobin 27.5 pg (27.0-31.0); Mean Corpuscular Volume 86.9 fL (78.0-98.0); Platelet Count 529 thou/uL (130-400); RBC Distribution Width 17.1 % (11.5-14.5); Red Blood Cell (RBC) Count 3.24 mill/uL (4.20-5.40)
[2018-11-16 13:13] LABS: Albumin-Ur 36.1 % (.); Alpha 1 - Ur 4.1 % (.); Alpha 2 - Ur 12.2 % (.); Beta-Ur 27.9 % (.); Gamma-Ur 19.7 % (.); M-Spike,% Not Observed % (Not Observed)
[2018-11-16 13:20] LABS: Chloride 115 mmol/L (98-107); Potassium 5.8 mmol/L (3.5-5.1); Sodium 138 mmol/L (136-145)
[2018-11-16 13:21] LABS: Calcium 10.3 mg/dL (7.8-10.44); Glucose 105 mg/dL (83-110)
[2018-11-16 13:23] LABS: Anion Gap 17 mmol/L (10-20); Carbon Dioxide 12 mmol/L (23-31)
[2018-11-16 13:24] LABS: Calc. Creatinine Clearance 15 mL/min (70-130); Estimated GFR-MDRD 25
[2018-11-16 13:25] LABS: BUN (Urea Nitrogen) 51 mg/dL (9.8-20.1)
[2018-11-16] MEDS: Sodium Chloride 0.45% 1,000 ML IV SCH (13:55)
[2018-11-16] MEDS: Famotidine 20 MG TAB PO SCH (19:48)
[2018-11-17] MEDS: Sodium Chloride 0.45% 1,000 ML IV SCH (03:55)
[2018-11-17] MEDS: Acetaminophen 500 MG TAB PO SCH ×2 (03:56→09:56)
[2018-11-17 08:00] VITALS: BP 143/57
[2018-11-17 08:42] LABS: #Basophils 0.1 thou/uL (0.0-0.2); #Eosinphils 0.4 thou/uL (0.0-0.7); #Lymphocytes 2.4 thou/uL (1.20-3.40); #Monocytes 0.8 thou/uL (0.11-0.59); #Neutrophils 6.3 thou/uL (1.40-6.50); %Basophils 0.7 % (0.0-1.0); %Eosinophils 3.5 % (0.0-10.0); %Lymphocytes 23.8 % (21.0-51.0); %Monocytes 8.3 % (0.0-10.0); %Neutrophils 63.7 % (42.0-75.0); Mean Corpuscular Hemoglobin 27.5 pg (27.0-31.0); Mean Corpuscular Volume 83.2 fL (78.0-98.0); Platelet Count 508 thou/uL (130-400); RBC Distribution Width 16.9 % (11.5-14.5)
[2018-11-17 08:58] LABS: Anion Gap 11 mmol/L (10-20); BUN (Urea Nitrogen) 43 mg/dL (9.8-20.1); Calc. Creatinine Clearance 18 mL/min (70-130); Calcium 9.2 mg/dL (7.8-10.44); Carbon Dioxide 18 mmol/L (23-31); Chloride 111 mmol/L (98-107); Estimated GFR-MDRD 29; Glucose 88 mg/dL (83-110); Potassium 4.9 mmol/L (3.5-5.1); Sodium 135 mmol/L (136-145)
--- NOTE | 2018-11-17 09:48 | PQF ---
CLINICAL DOCUMENTATION IMPROVEMENT CLARIFICATION FORM: ICD-10 Updated PLEASE DO AN ADDENDUM TO THE PROGRESS NOTE WITH ANY DOCUMENTATION UPDATES OR ADDITIONS AND CARRY THROUGH TO DC SUMMARY. THANK YOU. DATE: 11/17/18 ATTN: Jackelyn BE PA-C Please exercise your independent, professional judgment in responding to the clarification form. Clinical indicators are provided on the bottom of this form for your review Please check appropriate box(es): [ ] Sepsis due to: (Pna, UTI, gangrenous gall bladder, etc.) Due to: [ ] Device (please specify) [ ] Implant [ ] Graft [ ] Infusion [ ] SIRS due to non-infectious process (please specify etiology) [ ] with organ dysfunction [ ] without organ dysfunction [ ] Severe sepsis with acute organ dysfunction of: (Examples: respiratory failure, encephalopathy, acute kidney failure, other) [ ] Septic Shock [ X ] Localized infection without sepsis [ ] Other diagnosis [ ] Unable to determine In addition, please specify: Present on Admission (POA): [ ] Yes [ ] No [ ] Unable to determine For continuity of documentation, please document condition throughout progress notes and discharge summary. Thank You. CLINICAL INDICATORS - SIGNS / SYMPTOMS / LABS ER NOTE: "PATIENT IS CRITICALLY ILL WITH SEPSIS WITH END ORGAN DYSFUNCTION" WBC 16.2 BANDS 13 RISKS: UTI ACUTE RENAL FAILURE (ER NOTE) TREATMENT: IV ROCEPHIN (ER) CIPRO (11/09-11/14) BLOOD AND URINE CULTURES (This form is maintained as a part of the permanent medical record) 2014 [employer]. All Rights Reserved [employer] [email or web address] Office: [phone] [facility]
[2018-11-17] MEDS: Polyethylene Glycol 3350 17 GM Packet PO SCH (09:55)
[2018-11-17] MEDS: NIFEdipine XL 60 MG TAB PO SCH (09:55)
[2018-11-17] MEDS: Heparin 5,000 UNITS/ML VIAL SC SCH (09:55)
[2018-11-17] MEDS: Nystatin 500,000 UNITS/5 ML UDCUP SSW SCH ×2 (09:55→12:27)
[2018-11-17] MEDS: Metoprolol Tartrate 50 MG TAB PO SCH (09:56)
[2018-11-17] MEDS: Senokot S 8.6-50 MG TAB PO SCH (09:56)
[2018-11-17 11:16] VITALS: TEMP 97.5
--- NOTE | 2018-11-17 13:30 | PDOC.PN ---
- Subjective Encounter Start Date: 11/17/18 Encounter Start Time: 09:25 Subjective: awake, pleasant, not in distress - Objective MAR Reviewed: Yes Vital Signs & Weight: Vital Signs (12 hours) Temp Pulse Resp BP Pulse Ox 11/17/18 11:15 97.5 F L 70 16 100 11/17/18 09:55 70 11/17/18 08:00 97.4 F L 72 15 143/57 H 100 11/17/18 03:58 98.3 F 70 16 127/58 L 100 Weight Admit Weight 108 lb 4.8 oz Weight 108 lb 3 oz I&O: 11/16/18 11/17/18 11/18/18 06:59 06:59 06:59 Intake Total 1130 300 Balance 1130 300 Result Diagrams: 11/17/18 08:08 11/17/18 08:08 Additional Labs: Accuchecks 11/17/18 11/17/18 11/16/18 11:09 05:35 21:42 POC Glucose 151 H 94 123 H 11/16/18 16:43 POC Glucose 97 Phys Exam - Physical Examination HEENT: PERRLA, moist MMs Neck: no JVD, supple Respiratory: no wheezing, no rales Cardiovascular: RRR, no significant murmur Gastrointestinal: soft, non-tender, positive bowel sounds Musculoskeletal: no edema, pulses present Neurological: non-focal, moves all 4 limbs Dx/Plan (1) ANATOLY (acute kidney injury) Code(s): N17.9 - ACUTE KIDNEY FAILURE, UNSPECIFIED Status: Acute (2) Closed right acetabular fracture Code(s): S32.401A - UNSP FRACTURE OF RIGHT ACETABULUM, INIT FOR CLOS FX Status : Acute Qualifiers: Encounter type: subsequent encounter Comment: Non-surgical. NWB. (3) CKD (chronic kidney disease), stage IV Code(s): N18.4 - CHRONIC KIDNEY DISEASE, STAGE 4 (SEVERE) Status: Chronic (4) Hydroureter Code(s): N13.4 - HYDROURETER Status: Acute Comment: Chronic. Secondary to concretions around the very old stent. (5) Diabetes Code(s): E11.9 - TYPE 2 DIABETES MELLITUS WITHOUT COMPLICATIONS Status: Chronic Qualifiers: Diabetes mellitus type: type 2 Diabetes mellitus complication status: with kidney complications Diabetes mellitus complication detail: with chronic kidney disease Chronic kidney disease stage: stage 3 (moderate) (6) HTN (hypertension) Code(s): I10 - ESSENTIAL (PRIMARY) HYPERTENSION Status: Chronic Qualifiers: Hypertension type: essential hypertension Qualified Code(s): I10 - Essential (primary) hypertension (7) Anemia Code(s): D64.9 - ANEMIA, UNSPECIFIED Status: Chronic Qualifiers: Anemia type: unspecified type Qualified Code(s): D64.9 - Anemia, unspecified - Plan hemostable -: renal function is improving -: dc pt to [facility] -: needs encouragement to eat * .
--- NOTE | 2018-11-17 16:39 | DIS ---
DATE OF ADMISSION: 11/09/2018 DATE OF DISCHARGE: 11/17/2018 [address]POSITION: [facility] PRIMARY DISCHARGE DIAGNOSES: 1. History of fall. 2. Closed right acetabular fracture for medical management. 3. 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 4. Acute kidney injury, chronic kidney disease stage 3. 5. Diabetes mellitus type 2. 6. Hypertension. 7. Chronic anemia, likely underlying dementia. PROCEDURES DONE DURING HOSPITALIZATION: Chest x-ray done shows mild scarring versus cephalization of pulmonary vasculature in the upper lobes. No acute intrathoracic abnormality. CT pelvis noncontrast done showed comminuted, nondisplaced right acetabular fracture with intra-articular components. X-ray pelvis AP standard view showed fracture of right acetabulum. CT brain without contrast showed old left-sided lacunar infarct. No mass or bleed or acute process seen. There was old lacunar infarct in the anterior limb of left internal capsule. Two-view right hip x-ray done shows right hip degenerative change. Two-view left hip x-ray done shows no evidence of acute osseous abnormality. Echo with 2D Doppler showed EF of 55% to 60%. Ultrasound of kidneys showed dense calcification within the region of right renal pelvis. Right kidney is distorted in appearance and has a lobulated masslike contour to the mid lower pole. Increased echogenicity to the cortex of left kidney suggesting medical renal disease. Mildly elevated resistive indices of both kidneys. CT stone protocol done showed enlargement of right kidney with very severe hydronephrosis, right ureteral stent in place with extensive concretions around the stent in the infrarenal aspect. Air-fluid levels within the dilated upper collecting system was seen. AP view pelvic x-ray done on 11/15/2018 showed right acetabular fracture without evidence of displacement or interval healing. Right hip 2-view x-ray showed stable right acetabular fracture done on 11/15/2018. Blood cultures x2, no growth. Hemoglobin and hematocrit of 8 and 24, platelet count 508, MCV 83. Discharge BUN and creatinine 43 and 1.9. Admitting creatinine was 3.7. Admitting BUN was 79. Serum bicarbonate on the day of discharge is 18. DISCHARGE MEDICATIONS: 1. Hydralazine 25 mg three times daily. 2. Metoprolol tartrate 50 mg p.o. daily. 3. Procardia XL 60 mg p.o. daily. 4. Pepcid 20 mg daily. ALLERGIES: NO KNOWN DRUG ALLERGIES. INPATIENT CONSULT: 1. Dr. Ryan Mendez for Urology. 2. Dr. Grace for Orthopedic Surgery. 3. Dr. Emerson for Trauma Team. DISCHARGE PLAN: The patient to follow up with Dr. Grace in 2 to 3 weeks and primary care physician in 1 week. BRIEF COURSE DURING HOSPITALIZATION: The patient initially was sent to ER for complaints of generalized weakness. She had an unwitnessed fall 3 days prior to arrival. The patient was also confused and was in altered mental state. Initial workup in the ER revealed acute kidney injury with suspected right acetabular fracture. The patient had UTI as well. She was initially admitted by Trauma Surgery. Multiple workups were done as mentioned above. The patient was incidentally found to have had right-sided retained ureteral stent with severe hydronephrosis and hydroureter. She has had consultation with Dr. Ryan Mendez as well. The patient did not want to pursue any further intervention for the same as she would have required nephrectomy with removal of the stent. The patient remained hemodynamically stable all through her stay here. Her renal function is slowly trending back to her baseline. She was evaluated by Dr. Grace for the right acetabular fracture. She is to be nonweightbearing and will need to follow up with Dr. Grace in 2 to 3 weeks with repeat x-rays to see for healing. The fracture was minimally displaced and is for medical management. She likely has underlying dementia and is not fully oriented, but follows verbal stimuli. A total of 35 minutes was spent on discharge plan. Please see a [id number] documentation for the day of discharge on [employer] Job ID: [id number]
== END 2018-11-17 13:15 | DRG 698 ==
LOC: ERS 15:02 → 2NO 20:47 → SURG A 11-12 15:18
PROVIDERS: ADMIT Surgery; ATTEND Surgery
DX: T83.593A Infection and inflammatory reaction due to other urinary stents, initial encounter (principal); S32.401A Unspecified fracture of right acetabulum, initial encounter for closed fracture; N17.9 Acute kidney failure, unspecified; E87.1 Hypo-osmolality and hyponatremia; N13.6 Pyonephrosis; N18.4 Chronic kidney disease, stage 4 (severe); E11.22 Type 2 diabetes mellitus with diabetic chronic kidney disease; K21.9 Gastro-esophageal reflux disease without esophagitis; M16.11 Unilateral primary osteoarthritis, right hip; E87.5 Hyperkalemia; W18.39XA Other fall on same level, initial encounter; D47.3 Essential (hemorrhagic) thrombocythemia; I12.9 Hypertensive chronic kidney disease with stage 1 through stage 4 chronic kidney disease, or unspecified chronic kidney disease; D63.1 Anemia in chronic kidney disease; F03.90 Unspecified dementia, unspecified severity, without behavioral disturbance, psychotic disturbance, mood disturbance, and anxiety; Z79.4 Long term (current) use of insulin; Z89.511 Acquired absence of right leg below knee; Z87.442 Personal history of urinary calculi; Y92.009 Unspecified place in unspecified non-institutional (private) residence as the place of occurrence of the external cause; Y83.8 Other surgical procedures as the cause of abnormal reaction of the patient, or of later complication, without mention of misadventure at the time of the procedure
CPT/HCPCS: 36415; 36416; 51701; 70450; 71045; 72170; 72192; 74150; 76700; 76770; 80048; 80053; 81003; 81015; 82306; 82550; 82553; 82570; 83605; 83735; 83880; 83970; 84100; 84166; 84443; 84484; 85025; 87040; 87086; 93005; 93306; 96365; A4353; G0390; J0696; J1644

== ENCOUNTER 2018-11-27 20:48 | Inpatient (IN) | payer MEDICARE, OTHER ==
[2018-11-27 22:13] LABS: Hemoglobin 7.8 g/dL (12.0-16.0); Mean Corpuscular Hemoglobin 27.2 pg (27.0-31.0); Mean Corpuscular Volume 87.5 fL (78.0-98.0); Mean Platelet Volume 7.4 fL (7.4-10.4); Platelet Count 389 thou/uL (130-400); RBC Distribution Width 17.9 % (11.5-14.5); Red Blood Cell (RBC) Count 2.88 mill/uL (4.20-5.40); White Blood Cell (WBC) Count 6.9 thou/uL (4.8-10.8)
--- NOTE | 2018-11-27 22:27 | RAD ---
Exam: Chest one view HISTORY:Emergency exam, abnormal laboratory values Comparison: 11/09/2018 FINDINGS: Lungs: No new consolidation Cardiac silhouette:Stable Pulmonary vessels: Stable mild prominence Pleural Spaces: Clear Pneumothorax: None Osseous abnormalities: None of acuity. IMPRESSION: Stable chest
[2018-11-27 22:33] LABS: Band 4 % (5-11); Hypochromia SLIGHT = 6-15 cells (100X) (0-5/hpf); Lymphocytes 17 % (21-51); MDiff Complete? YES; Monocytes 10 % (0-10); Neutrophil 69 % (42-75); Platelet Morphology Comment Appears Adequate
[2018-11-27 22:36] LABS: ALT (SGPT) Less than 7 U/L (8-55); AST (SGOT) 7 U/L (5-34); Alkaline Phosphatase 69 U/L (40-150); Anion Gap 18 mmol/L (10-20); BUN (Urea Nitrogen) 71 mg/dL (9.8-20.1); Bilirubin, Total 0.2 mg/dL (0.2-1.2); Calc. Creatinine Clearance 0 mL/min (70-130); Calcium 9.5 mg/dL (7.8-10.44); Carbon Dioxide 15 mmol/L (23-31); Chloride 104 mmol/L (98-107); Estimated GFR-MDRD 14; Globulin 4.6 g/dL (2.4-3.5); Glucose 106 mg/dL (83-110); Potassium 6.1 mmol/L (3.5-5.1); Protein, Total 7.6 g/dL (6.0-8.3); Sodium 131 mmol/L (136-145)
[2018-11-27 22:37] LABS: Bilirubin Negative (Negative); Blood, Urine Small (Negative); Glucose, Urine (Dipstick) Negative (Negative); Leukocyte Large (Negative); Nitrite Negative (Negative); Protein, Urine (Dipstick) > or equal to 300 mg/dL (Neg-Trace); Urobilinogen 0.2 mg/dL (Less than 2)
[2018-11-27 22:41] LABS: RBC/HPF Greater than 50 HPF (0-3)
[2018-11-27 22:42] LABS: Bacteria/HPF 4+ HPF (None Seen); Clarity Cloudy (Clear); Squamous Epithelial 0-3 HPF (0-3); WBC/HPF 21-50 HPF (0-3)
[2018-11-27] MEDS ORDERED: cefTRIAXone\\ROCEPHIN 1 GM VIAL ONE (23:02)
[2018-11-28] MEDS ORDERED: Ondansetron PF 4 MG/2 ML Vial IVP PRN ×2 (03:35→14:19)
[2018-11-28] MEDS ORDERED: Acetaminophen 325 MG TAB PO PRN ×2 (03:35→14:19)
[2018-11-28] MEDS ORDERED: Ondansetron ODT 4 MG TAB SL PRN (03:35)
[2018-11-28] MEDS: Sodium Bicarbonate 150 MEQ in Dextrose 5% in Water 1,000 ML IV SCH ×2 (05:00→11:23)
[2018-11-28 06:14] LABS: Anion Gap 14 mmol/L (10-20); BUN (Urea Nitrogen) 65 mg/dL (9.8-20.1); Calc. Creatinine Clearance 10 mL/min (70-130); Calcium 9.1 mg/dL (7.8-10.44); Carbon Dioxide 22 mmol/L (23-31); Chloride 104 mmol/L (98-107); Estimated GFR-MDRD 16; Glucose 142 mg/dL (83-110); Potassium 4.5 mmol/L (3.5-5.1); Sodium 135 mmol/L (136-145)
[2018-11-28] MEDS ORDERED: Bisacodyl 5 MG TAB PO PRN (14:19)
--- NOTE | 2018-11-28 14:56 | HP ---
PRIMARY CARE PROVIDER: Vishnu Zepeda MD CHIEF COMPLAINT: Abnormal labs. HISTORY OF PRESENT ILLNESS: Ms. Marina is a pleasant 78-year-old lady, who was seen at [facility] on November 28, 2018. The patient is unable to provide any history secondary to dementia. Collateral history was obtained from review of medical record and discussion with emergency room staff. Ms. Marina was hospitalized at [facility] from to November 17 of this year for fall, closed right acetabular fracture for medical management, chronic hydroureter secondary to concretions around very old stent and acute on chronic kidney injury. She was subsequently discharged to [facility]. The patient was sent to the emergency room because she was found to have potassium of 5.9 and creatinine of 3.6. The patient denies any chest pain or shortness of breath. She denies any fevers or chills. She denies any nausea or vomiting. REVIEW OF SYSTEMS: Could not be completed because of the patient's cognitive status. PAST MEDICAL HISTORY: Kidney disease, hypertension, right lower extremity below-knee amputation, and urinary tract stent. It also appears that the patient may have a diagnosis of diabetes mellitus, but she is not on any medications for diabetes. SURGICAL HISTORY: Unable to obtain. FAMILY HISTORY: Unable to obtain. SOCIAL HISTORY: The patient denies tobacco use, alcohol use, or recreational drug use. ALLERGIES: NO KNOWN DRUG ALLERGIES. CURRENT MEDICATIONS: 1. Nifedipine 60 mg daily. 2. Famotidine 20 mg daily. 3. Hydralazine 25 mg 3 times a day. 4. Metoprolol tartrate 50 mg daily. 5. Flagyl 500 mg 3 times a day. 6. Sodium bicarbonate 325 mg 2 times a day. CODE STATUS: I could not obtain code status from the patient. [facility] papers indicate that she is full code. I tried to reach her son and sister over the telephone. I could not reach them. PHYSICAL EXAMINATION: GENERAL: On examination, Ms. Marina is awake and alert, not in acute distress. VITAL SIGNS: Blood pressure is 144/63, pulse 87, respiratory rate 16, and oxygen saturation 97% on room air. She is afebrile. EYES: No scleral icterus, no conjunctival pallor. ENT: Dry mucosal membranes. No oropharyngeal erythema or exudates. NECK: Supple, nontender, trachea is midline. RESPIRATORY: Accessory muscles of breathing are not active. Chest wall movements are symmetric bilaterally. Lungs are clear to auscultation without wheeze, rhonchi, or crepitations. CARDIOVASCULAR: S1 and S2 are heard, regular. Peripheral pulses palpable. No carotid bruit. No pericardial rub. ABDOMEN: Soft, nontender, bowel sounds heard, no hepatomegaly, no splenomegaly. NEUROLOGIC: Cranial nerves 2 through 12 intact, deep tendon reflexes 2+. MUSCULOSKELETAL: Status post right below-knee amputation, moving all 4 extremities. SKIN: No rashes or subcutaneous nodules. LYMPHATIC: No cervical lymphadenopathy. PSYCHIATRIC: Normal mood, oriented to self only, not to place or time. LABORATORY DATA: Ms. Marina's labs and investigations were reviewed. I reviewed her electrocardiogram, which shows normal sinus rhythm, no ST changes to indicate an acute coronary syndrome. I also reviewed her chest x-ray, which does not show any pulmonary infiltrates. She has normal white count, normocytic anemia with hemoglobin of 7.8, which is around her baseline, normal platelet count. Sodium 131 at 2201 hours last night and 135 at 5:42 a.m. today, potassium elevated at 6.1 at 2201 hours yesterday and normalizing at 4.5 at 5:42 a.m. today, creatinine 3.69 yesterday and 3.36 today, blood urea nitrogen 71 yesterday and 65 today, albumin decreased at 3.0, normal lactic acid and normal calcium. The remainder of the LFTs are unremarkable. Urinalysis is positive for large amount of leukocyte esterase and small amount of blood, as well as 4+ bacteria. Beta-hydroxybutyrate level is normal. ASSESSMENT AND PLAN: Ms. Marina is a pleasant 78-year-old lady, who was seen at [facility] on November 28, 2018. Her problem list includes: 1. Acute on chronic stage IV renal failure: Ms. Marina is presenting with acute on chronic renal failure, etiology unclear at this time. She is clinically dehydrated. We will provide intravenous hydration and recheck. We will also consult Nephrology Service for opinion and help with management. 2. Hypertension: We will resume patient's home medications, monitor vital signs and titrate antihypertensives as needed. 3. Urinary tract infection: We will start patient on ceftriaxone and follow urine cultures. 4. Hyponatremia: Mild, provide intravenous normal saline and recheck sodium level. 5. Hyperkalemia: This has resolved. Many thanks for allowing me to participate in your patient's care. Please feel free to contact me with any questions or concerns. LEVEL OF RISK: High. LEVEL OF COMPLEXITY: High. Job ID: [id number]
[2018-11-28] MEDS ORDERED: cefTRIAXone\\ROCEPHIN 1 GM in Sodium Chloride 0.9% 100 ML IVPB SCH (15:00)
[2018-11-28] MEDS: Sodium Chloride 0.9% 1,000 ML IV SCH (16:49)
[2018-11-28] MEDS: Heparin 5,000 UNITS/ML VIAL SC SCH ×2 (16:56→21:14)
[2018-11-28] MEDS: metroNIDAZOLE 500 MG TAB PO SCH ×2 (16:56→21:14)
[2018-11-28] MEDS: hydrALAZINE 25 MG TAB PO SCH ×2 (16:56→21:14)
[2018-11-28] MEDS: cefTRIAXone\\ROCEPHIN 1 GM in Sodium Chloride 0.9% 100 ML IVPB SCH (16:57)
[2018-11-28] MEDS ORDERED: Prevnar 13-Val Conj/PF 0.5 ML SYRINGE IM ONE (21:00)
[2018-11-28] MEDS ORDERED: Sodium Bicarbonate Tab 325 MG TAB PO SCH (21:00)
[2018-11-29 06:03] LABS: Anion Gap 13 mmol/L (10-20); BUN (Urea Nitrogen) 44 mg/dL (9.8-20.1); Calc. Creatinine Clearance 14 mL/min (70-130); Calcium 8.9 mg/dL (7.8-10.44); Carbon Dioxide 28 mmol/L (23-31); Chloride 105 mmol/L (98-107); Estimated GFR-MDRD 23; Glucose 87 mg/dL (83-110); Potassium 4.2 mmol/L (3.5-5.1); Sodium 142 mmol/L (136-145)
[2018-11-29 06:13] LABS: Band 7 % (5-11); Eosinophils 2 % (0-10); Hemoglobin 7.1 g/dL (12.0-16.0); Lymphocytes 35 % (21-51); MDiff Complete? YES; Mean Corpuscular HGB CONC 32.1 g/dL (32.0-36.0); Mean Corpuscular Hemoglobin 27.5 pg (27.0-31.0); Mean Corpuscular Volume 85.7 fL (78.0-98.0); Metamyelocyte 1 % (0-0); Monocytes 20 % (0-10); Neutrophil 35 % (42-75); Platelet Count 394 thou/uL (130-400); Platelet Morphology Comment Appears Adequate; RBC Distribution Width 17.7 % (11.5-14.5); White Blood Cell (WBC) Count 5.2 thou/uL (4.8-10.8)
[2018-11-29] MEDS: Sodium Chloride 0.9% 1,000 ML IV SCH ×2 (06:13→20:50)
[2018-11-29] MEDS: Famotidine 20 MG TAB PO SCH (08:00)
[2018-11-29] MEDS: NIFEdipine XL 60 MG TAB PO SCH (08:00)
[2018-11-29] MEDS: Sodium Bicarbonate Tab 325 MG TAB PO SCH ×3 (08:00→20:49)
[2018-11-29] MEDS: Metoprolol Tartrate 50 MG TAB PO SCH (08:00)
[2018-11-29] MEDS: Heparin 5,000 UNITS/ML VIAL SC SCH ×3 (08:01→20:50)
[2018-11-29] MEDS: metroNIDAZOLE 500 MG TAB PO SCH ×3 (08:01→20:49)
[2018-11-29] MEDS: hydrALAZINE 25 MG TAB PO SCH ×3 (08:02→20:49)
[2018-11-29] MEDS ORDERED: EPOETIN ALFA-EPBX (ESRD) 4,000 UNIT/ML VIAL SC SCH (09:00)
[2018-11-29] MEDS ORDERED: Vancomycin HCl 1 GM in Premix Bag 1 BAG IVPB SCH (11:15)
[2018-11-29] MEDS: Vancomycin HCl 500 MG in Sodium Chloride 0.9% 100 ML IVPB SCH (12:59)
[2018-11-29] MEDS: cefTRIAXone\\ROCEPHIN 1 GM in Sodium Chloride 0.9% 100 ML IVPB SCH (17:06)
--- NOTE | 2018-11-29 18:46 | PDOC.PN ---
- Subjective Encounter Start Date: 11/29/18 Encounter Start Time: 10:20 Pt seen for followup re: acute on chronic renal failure. Pt not answering questions, rambling, could not complete ROS. - Objective MAR Reviewed: Yes Vital Signs & Weight: Vital Signs (12 hours) Temp Pulse Resp BP BP Pulse Ox 11/29/18 17:16 97.9 F 88 16 174/90 H 100 11/29/18 15:25 87 146/72 H 11/29/18 12:00 98.0 F 87 18 157/70 H 98 11/29/18 08:02 84 128/54 L 11/29/18 08:00 84 128/54 L 11/29/18 07:44 98.3 F 94 16 125/54 L 99 11/29/18 07:27 100 Weight Admit Weight 104 lb 9.6 oz Weight 104 lb 9.6 oz I&O: 11/28/18 11/29/18 11/30/18 06:59 06:59 06:59 Intake Total 438 1880 1160 Balance 438 1880 1160 Result Diagrams: 11/29/18 05:05 11/29/18 05:05 Additional Labs: Accuchecks 11/29/18 11/29/18 11/29/18 17:00 11:36 04:54 POC Glucose 113 H 126 H 92 Labs reviewed by me Phys Exam - Physical Examination Constitutional: NAD HEENT: moist MMs Neck: supple Respiratory: clear to auscultation bilateral Cardiovascular: RRR Gastrointestinal: soft s/p R BKA Neurological: moves all 4 limbs Psychiatric: normal affect Dx/Plan (1) Acute worsening of stage 4 chronic kidney disease Code(s): N18.4 - CHRONIC KIDNEY DISEASE, STAGE 4 (SEVERE) Status: Acute Comment: creatinine improved to 2.45 today (2) Bacteremia Code(s): R78.81 - BACTEREMIA Status: Acute Comment: Pt started on vancomycin , follow cultures (3) Anemia Code(s): D64.9 - ANEMIA, UNSPECIFIED Status: Chronic Qualifiers: Anemia type: unspecified type Qualified Code(s): D64.9 - Anemia, unspecified Comment: stool occult blood test negative, pt started on erythropoeitin (4) Diabetes Code(s): E11.9 - TYPE 2 DIABETES MELLITUS WITHOUT COMPLICATIONS Status: Chronic Qualifiers: Diabetes mellitus type: type 2 Diabetes mellitus complication status: with kidney complications Diabetes mellitus complication detail: with chronic kidney disease Chronic kidney disease stage: stage 3 (moderate) Comment: reasonable control (5) HTN (hypertension) Code(s): I10 - ESSENTIAL (PRIMARY) HYPERTENSION Status: Chronic Qualifiers: Hypertension type: essential hypertension Qualified Code(s): I10 - Essential (primary) hypertension Comment: monitor vital signs, titrate antihypertensives as needed - Plan * . Review of Systems - Medications/Allergies Allergies/Adverse Reactions: Allergies Allergy/AdvReac Type Severity Reaction Status Date / Time No Known Drug Allergies Allergy Verified 11/28/18 04:23 Medications: Current Medications Acetaminophen (Tylenol) 650 mg PO Q4H PRN PRN Reason: Headache/Fever/Mild Pain (1-3) Bisacodyl (Dulcolax) 10 mg PO DAILYPRN PRN PRN Reason: Constipation Epoetin Davion-epbx (Retacrit) 4,000 unit SC Q7D [facility] Last Admin: 11/29/18 12:59 Dose: 4,000 unit Famotidine (Pepcid) 20 mg PO DAILY [facility] Last Admin: 11/29/18 08:00 Dose: 20 mg Heparin Sodium (Porcine) (Heparin) 5,000 units SC TID [facility] Last Admin: 11/29/18 15:24 Dose: 5,000 units Hydralazine HCl (Apresoline) 25 mg PO TID [facility] Last Admin: 11/29/18 15:25 Dose: 25 mg Sodium Chloride (Normal Saline 0.9%) 1,000 mls @ 70 mls/hr IV .[id number] [facility] Last Admin: 11/29/18 06:13 Dose: 1,000 mls Ceftriaxone Sodium 1 gm/ (Sodium Chloride) 100 mls @ 200 mls/hr IVPB 1700 [facility] Last Admin: 11/29/18 17:06 Dose: 100 mls Vancomycin HCl 500 mg/ Sodium (Chloride) 100 mls @ 100 mls/hr IVPB 1200 [facility] Last Admin: 11/29/18 12:59 Dose: 100 mls Metoprolol Tartrate (Lopressor) 50 mg PO DAILY [facility] Last Admin: 11/29/18 08:00 Dose: 50 mg Metronidazole (Flagyl) 500 mg PO TID [facility] Last Admin: 11/29/18 15:25 Dose: 500 mg Miscellaneous Medication (Pharmacy To Dose) 1 each IVPB ONE PRN PRN Reason: Pharmacy to dose Stop: 12/08/18 11:04 Nifedipine (Procardia Xl) 60 mg PO DAILY [facility] Last Admin: 11/29/18 08:00 Dose: 60 mg Ondansetron HCl (Zofran) 4 mg IVP Q6H PRN PRN Reason: Nausea/Vomiting Sodium Bicarbonate (Bicarbonate, Sodium) 325 mg PO TID [facility] Last Admin: 11/29/18 15:25 Dose: 325 mg
[2018-11-30 05:55] LABS: Anion Gap 9 mmol/L (10-20); BUN (Urea Nitrogen) 30 mg/dL (9.8-20.1); Calc. Creatinine Clearance 17 mL/min (70-130); Calcium 9.2 mg/dL (7.8-10.44); Carbon Dioxide 28 mmol/L (23-31); Chloride 111 mmol/L (98-107); Estimated GFR-MDRD 30; Glucose 96 mg/dL (83-110); Potassium 4.3 mmol/L (3.5-5.1); Sodium 144 mmol/L (136-145)
[2018-11-30 06:08] LABS: Hemoglobin 7.2 g/dL (12.0-16.0); Hypochromia SLIGHT = 6-15 cells (100X) (0-5/hpf); Lymphocytes 27 % (21-51); MDiff Complete? YES; Mean Corpuscular HGB CONC 31.3 g/dL (32.0-36.0); Mean Corpuscular Hemoglobin 27.3 pg (27.0-31.0); Mean Corpuscular Volume 87.2 fL (78.0-98.0); Mean Platelet Volume 7.6 fL (7.4-10.4); Monocytes 11 % (0-10); Neutrophil 62 % (42-75); Platelet Count 409 thou/uL (130-400); Platelet Morphology Comment Appears Adequate; RBC Distribution Width 17.6 % (11.5-14.5); Red Blood Cell (RBC) Count 2.62 mill/uL (4.20-5.40); White Blood Cell (WBC) Count 5.5 thou/uL (4.8-10.8)
[2018-11-30] MEDS: NIFEdipine XL 60 MG TAB PO SCH (09:08)
[2018-11-30] MEDS: hydrALAZINE 25 MG TAB PO SCH ×3 (09:09→20:25)
[2018-11-30] MEDS: metroNIDAZOLE 500 MG TAB PO SCH ×3 (09:10→20:26)
[2018-11-30] MEDS: Metoprolol Tartrate 50 MG TAB PO SCH (09:10)
[2018-11-30] MEDS: Sodium Bicarbonate Tab 325 MG TAB PO SCH ×3 (09:10→20:26)
[2018-11-30] MEDS: Heparin 5,000 UNITS/ML VIAL SC SCH ×3 (09:10→20:27)
[2018-11-30] MEDS: Famotidine 20 MG TAB PO SCH (09:10)
[2018-11-30] MEDS: Sodium Chloride 0.9% 1,000 ML IV SCH ×2 (09:30→15:26)
[2018-11-30] MEDS: Vancomycin HCl 500 MG in Sodium Chloride 0.9% 100 ML IVPB SCH (11:28)
[2018-11-30] MEDS: cefTRIAXone\\ROCEPHIN 1 GM in Sodium Chloride 0.9% 100 ML IVPB SCH (17:42)
--- NOTE | 2018-11-30 18:39 | PDOC.PN ---
- Subjective Encounter Start Date: 11/30/18 Encounter Start Time: 10:20 Pt seen for followup re: UTI. More alert today, but not answering questions, unable to complete ROS. - Objective MAR Reviewed: Yes Vital Signs & Weight: Vital Signs (12 hours) Temp Pulse Resp BP BP Pulse Ox 11/30/18 16:35 98.2 F 79 16 107/57 L 96 11/30/18 15:17 75 107/57 L 11/30/18 11:29 98.4 F 75 16 129/62 99 11/30/18 09:20 98 11/30/18 09:09 92 161/67 H 11/30/18 09:08 92 161/67 H 11/30/18 08:08 98.1 F 92 16 161/67 H 98 Weight Admit Weight 104 lb 9.6 oz Weight 104 lb 9.6 oz I&O: 11/29/18 11/30/18 12/01/18 06:59 06:59 06:59 Intake Total 1880 2480 1200 Balance 1880 2480 1200 Result Diagrams: 11/30/18 05:17 11/30/18 05:17 Additional Labs: Accuchecks 11/30/18 11/30/18 11/30/18 16:57 11:57 05:05 POC Glucose 148 H 130 H 103 11/29/18 19:40 POC Glucose 131 H Labs reviewed by me Phys Exam - Physical Examination Constitutional: NAD HEENT: moist MMs Neck: supple Respiratory: clear to auscultation bilateral Cardiovascular: RRR Gastrointestinal: soft s/p R BKA Neurological: moves all 4 limbs Psychiatric: normal affect Dx/Plan (1) UTI (urinary tract infection) Status: Acute Comment: Urine culture growing gram negative latricia, continue ceftriaxone (2) Bacteremia Code(s): R78.81 - BACTEREMIA Status: Acute Comment: Staph epidermidis in 1/ 2 cultures, likely contaminant, discontinue vancomycin (3) Anemia Code(s): D64.9 - ANEMIA, UNSPECIFIED Status: Chronic Qualifiers: Anemia type: unspecified type Qualified Code(s): D64.9 - Anemia, unspecified Comment: hemoglobin stable (4) Diabetes Code(s): E11.9 - TYPE 2 DIABETES MELLITUS WITHOUT COMPLICATIONS Status: Chronic Qualifiers: Diabetes mellitus type: type 2 Diabetes mellitus complication status: with kidney complications Diabetes mellitus complication detail: with chronic kidney disease Chronic kidney disease stage: stage 3 (moderate) Comment: reasonable control (5) HTN (hypertension) Code(s): I10 - ESSENTIAL (PRIMARY) HYPERTENSION Status: Chronic Qualifiers: Hypertension type: essential hypertension Qualified Code(s): I10 - Essential (primary) hypertension Comment: controlled (6) Acute worsening of stage 4 chronic kidney disease Code(s): N18.4 - CHRONIC KIDNEY DISEASE, STAGE 4 (SEVERE) Status: Resolved Comment: creatinine improved to 1.93 today - Plan * . Review of Systems - Medications/Allergies Allergies/Adverse Reactions: Allergies Allergy/AdvReac Type Severity Reaction Status Date / Time No Known Drug Allergies Allergy Verified 11/28/18 04:23 Medications: Current Medications Acetaminophen (Tylenol) 650 mg PO Q4H PRN PRN Reason: Headache/Fever/Mild Pain (1-3) Bisacodyl (Dulcolax) 10 mg PO DAILYPRN PRN PRN Reason: Constipation Epoetin Davion-epbx (Retacrit) 4,000 unit SC Q7D [facility] Last Admin: 11/29/18 12:59 Dose: 4,000 unit Famotidine (Pepcid) 20 mg PO DAILY [facility] Last Admin: 11/30/18 09:10 Dose: 20 mg Heparin Sodium (Porcine) (Heparin) 5,000 units SC TID [facility] Last Admin: 11/30/18 15:17 Dose: 5,000 units Hydralazine HCl (Apresoline) 25 mg PO TID [facility] Last Admin: 11/30/18 15:17 Dose: Not Given Sodium Chloride (Normal Saline 0.9%) 1,000 mls @ 70 mls/hr IV .[id number] [facility] Last Admin: 11/30/18 15:26 Dose: 1,000 mls Ceftriaxone Sodium 1 gm/ (Sodium Chloride) 100 mls @ 200 mls/hr IVPB 1700 [facility] Last Admin: 11/30/18 17:42 Dose: 100 mls Vancomycin HCl 500 mg/ Sodium (Chloride) 100 mls @ 100 mls/hr IVPB 1200 [facility] Last Admin: 11/30/18 11:28 Dose: 100 mls Metoprolol Tartrate (Lopressor) 50 mg PO DAILY [facility] Last Admin: 11/30/18 09:10 Dose: 50 mg Metronidazole (Flagyl) 500 mg PO TID [facility] Last Admin: 11/30/18 15:17 Dose: 500 mg Miscellaneous Medication (Pharmacy To Dose) 1 each IVPB ONE PRN PRN Reason: Pharmacy to dose Stop: 12/08/18 11:04 Nifedipine (Procardia Xl) 60 mg PO DAILY [facility] Last Admin: 11/30/18 09:08 Dose: 60 mg Ondansetron HCl (Zofran) 4 mg IVP Q6H PRN PRN Reason: Nausea/Vomiting Sodium Bicarbonate (Bicarbonate, Sodium) 325 mg PO TID [facility] Last Admin: 11/30/18 15:17 Dose: 325 mg
[2018-12-01] MEDS: Sodium Chloride 0.9% 1,000 ML IV SCH ×4 (01:07→22:53)
[2018-12-01 06:21] LABS: Anion Gap 12 mmol/L (10-20); BUN (Urea Nitrogen) 21 mg/dL (9.8-20.1); Calc. Creatinine Clearance 20 mL/min (70-130); Calcium 8.8 mg/dL (7.8-10.44); Carbon Dioxide 24 mmol/L (23-31); Chloride 111 mmol/L (98-107); Estimated GFR-MDRD 35; Glucose 101 mg/dL (83-110); Potassium 3.7 mmol/L (3.5-5.1); Sodium 143 mmol/L (136-145)
[2018-12-01 06:25] LABS: Eosinophils 1 % (0-10); Hemoglobin 6.9 g/dL (12.0-16.0); Lymphocytes 24 % (21-51); MDiff Complete? YES; Mean Corpuscular HGB CONC 31.4 g/dL (32.0-36.0); Mean Corpuscular Hemoglobin 27.5 pg (27.0-31.0); Mean Corpuscular Volume 87.7 fL (78.0-98.0); Mean Platelet Volume 7.6 fL (7.4-10.4); Metamyelocyte 2 % (0-0); Monocytes 16 % (0-10); Neutrophil 57 % (42-75); Platelet Count 375 thou/uL (130-400); Platelet Morphology Comment Appears Adequate; White Blood Cell (WBC) Count 6.9 thou/uL (4.8-10.8)
[2018-12-01] MEDS: NIFEdipine XL 60 MG TAB PO SCH (09:45)
[2018-12-01] MEDS: Metoprolol Tartrate 50 MG TAB PO SCH (09:45)
[2018-12-01] MEDS: Sodium Bicarbonate Tab 325 MG TAB PO SCH ×3 (09:45→20:40)
[2018-12-01] MEDS: hydrALAZINE 25 MG TAB PO SCH ×3 (09:45→20:39)
[2018-12-01] MEDS: Famotidine 20 MG TAB PO SCH (09:45)
[2018-12-01] MEDS: Heparin 5,000 UNITS/ML VIAL SC SCH (09:46)
[2018-12-01] MEDS: metroNIDAZOLE 500 MG TAB PO SCH ×3 (09:46→20:39)
--- NOTE | 2018-12-01 15:10 | PDOC.PN ---
- Subjective Encounter Start Date: 12/01/18 Encounter Start Time: 08:40 Pt seen for followup re: UTI. Unable to answer questions, unable to complete ROS. - Objective MAR Reviewed: Yes Vital Signs & Weight: Vital Signs (12 hours) Temp Pulse Resp BP BP Pulse Ox 12/01/18 09:45 71 136/61 12/01/18 08:50 96 12/01/18 07:37 98.4 F 71 16 136/61 96 12/01/18 04:02 98.3 F 81 16 137/67 98 Weight Admit Weight 104 lb 9.6 oz Weight 104 lb 9.6 oz I&O: 11/30/18 12/01/18 12/02/18 06:59 06:59 06:59 Intake Total 2480 1600 Balance 2480 1600 Result Diagrams: 12/01/18 05:21 12/01/18 05:21 Additional Labs: Accuchecks 12/01/18 11/30/18 11/30/18 03:54 19:29 16:57 POC Glucose 102 176 H 148 H labs reviewed by me Phys Exam - Physical Examination Constitutional: NAD HEENT: moist MMs Neck: supple Respiratory: clear to auscultation bilateral Cardiovascular: RRR Gastrointestinal: soft Neurological: moves all 4 limbs Psychiatric: normal affect Dx/Plan (1) UTI (urinary tract infection) Status: Acute Comment: continue ceftriaxone (2) Bacteremia Code(s): R78.81 - BACTEREMIA Status: Acute Comment: Staph epidermidis in 1/ 2 cultures, gram positive latricia in the other culture, likely contaminants, follow identification (3) Anemia Code(s): D64.9 - ANEMIA, UNSPECIFIED Status: Chronic Qualifiers: Anemia type: unspecified type Qualified Code(s): D64.9 - Anemia, unspecified Comment: hemoglobin stable, continue epoeitin (4) Diabetes Code(s): E11.9 - TYPE 2 DIABETES MELLITUS WITHOUT COMPLICATIONS Status: Chronic Qualifiers: Diabetes mellitus type: type 2 Diabetes mellitus complication status: with kidney complications Diabetes mellitus complication detail: with chronic kidney disease Chronic kidney disease stage: stage 3 (moderate) Comment: reasonable control (5) HTN (hypertension) Code(s): I10 - ESSENTIAL (PRIMARY) HYPERTENSION Status: Chronic Qualifiers: Hypertension type: essential hypertension Qualified Code(s): I10 - Essential (primary) hypertension Comment: controlled (6) Acute worsening of stage 4 chronic kidney disease Code(s): N18.4 - CHRONIC KIDNEY DISEASE, STAGE 4 (SEVERE) Status: Resolved Comment: creatinine improved to 1.71 today - Plan * . Review of Systems - Medications/Allergies Allergies/Adverse Reactions: Allergies Allergy/AdvReac Type Severity Reaction Status Date / Time No Known Drug Allergies Allergy Verified 11/28/18 04:23 Medications: Current Medications Acetaminophen (Tylenol) 650 mg PO Q4H PRN PRN Reason: Headache/Fever/Mild Pain (1-3) Bisacodyl (Dulcolax) 10 mg PO DAILYPRN PRN PRN Reason: Constipation Epoetin Davion-epbx (Retacrit) 4,000 unit SC Q7D [facility] Last Admin: 11/29/18 12:59 Dose: 4,000 unit Famotidine (Pepcid) 20 mg PO DAILY [facility] Last Admin: 12/01/18 09:45 Dose: 20 mg Hydralazine HCl (Apresoline) 25 mg PO TID [facility] Last Admin: 12/01/18 09:45 Dose: 25 mg Sodium Chloride (Normal Saline 0.9%) 1,000 mls @ 70 mls/hr IV .[id number] [facility] Last Admin: 12/01/18 09:49 Dose: 1,000 mls Ceftriaxone Sodium 1 gm/ (Sodium Chloride) 100 mls @ 200 mls/hr IVPB 1700 [facility] Last Admin: 11/30/18 17:42 Dose: 100 mls Metoprolol Tartrate (Lopressor) 50 mg PO DAILY [facility] Last Admin: 12/01/18 09:45 Dose: 50 mg Metronidazole (Flagyl) 500 mg PO TID [facility] Last Admin: 12/01/18 09:46 Dose: 500 mg Nifedipine (Procardia Xl) 60 mg PO DAILY [facility] Last Admin: 12/01/18 09:45 Dose: 60 mg Ondansetron HCl (Zofran) 4 mg IVP Q6H PRN PRN Reason: Nausea/Vomiting Sodium Bicarbonate (Bicarbonate, Sodium) 325 mg PO TID [facility] Last Admin: 12/01/18 09:45 Dose: 325 mg
--- NOTE | 2018-12-01 15:56 | PQF ---
CLINICAL DOCUMENTATION IMPROVEMENT CLARIFICATION FORM: ICD-10 Updated PLEASE DO AN ADDENDUM TO THE PROGRESS NOTE WITH ANY DOCUMENTATION UPDATES OR ADDITIONS AND CARRY THROUGH TO DC SUMMARY. THANK YOU. Date: 12/01/18 ATTN: DR. FOLEY Please exercise your independent, professional judgment in responding to the clarification form. Clinical indicators are provided on the bottom of this form for your review Please check appropriate box(s): [ ] Protein Calorie Malnutrition: [ ] Mild [ ] Moderate [ ] Severe [ ] Other Malnutrition (please specify) __ [ ] Underweight without malnutrition [ ] Cachexia [ ] Other diagnosis [ ] Unable to determine In addition, please specify: Present on Admission (POA): [ ] Yes [ ] No [ ] Unable to determine CLINICAL INDICATORS - SIGNS / SYMPTOMS / LABS DIETARY NOTE 11/29: "MODERATE MUSCLE WASTING, INTRAOCCEOUS MUSCLES, BICEPS, TRICEPS, SUBCUTANEOUS FAT LOSS-ORBITAL" "4% WT LOSS OVER PAST 1 MONTH" NURSING ASSESSMENT 12/01: "CAN NOT WALK, NEEDS ASSISTANCE WITH TURNING" BMI 16.9 RISKS: DEMENTIA RENAL FAILURE DIABETES ADVANCED AGE TREATMENT: DIETARY CONSULT DIETARY RECOMMENDATION FOR NUTRITIONAL SUPPLEMENTS Moderate Malnutrition (in acute illness) Energy Intake: <75% of estimated energy requirement for > 7 days Weight Loss: 1-2%/1 week; 5%/ 1 month; 7.5%/3 months Other: mild body fat loss; mild muscle mass loss; mild fluid accumulation; Severe Malnutrition (in acute illness) Energy Intake: < 50% of estimated energy requirement for > 5 days Weight Loss: >1-2%/1 week; >5%/1 month; >7.5%/3 months Other: moderate body fat loss; moderate muscle mass loss; moderate- severe fluid accumulation; measurably reduced core piler strength Moderate Malnutrition (in chronic illness) Energy Intake: <75% of estimated energy requirement for >1 month Weight Loss: 5%/1 month; 7.5%/3 months; 10%/6 months; 20%/1 year Other: mild body fat loss; mild muscle mass loss; mild fluid accumulation Severe Malnutrition (in chronic illness) Energy Intake: <75% of estimated energy requirement for >1 month Weight Loss: >5%/1 month; >7.5%/3 months; >10%/6 months; >20%/1 year Other: severe body fat loss; severe muscle mass loss; severe fluid accumulation ; measurably reduced core piler strength (This form is maintained as a part of the permanent medical record) 2014 [email or web address]. All Rights Reserved [email or web address] [email or web address] Office: [phone] [facility]
[2018-12-01] MEDS: cefTRIAXone\\ROCEPHIN 1 GM in Sodium Chloride 0.9% 100 ML IVPB SCH (16:37)
[2018-12-02] MEDS: NIFEdipine XL 60 MG TAB PO SCH (09:38)
[2018-12-02] MEDS: metroNIDAZOLE 500 MG TAB PO SCH ×2 (09:38→14:27)
[2018-12-02] MEDS: Famotidine 20 MG TAB PO SCH (09:38)
[2018-12-02] MEDS: Metoprolol Tartrate 50 MG TAB PO SCH (09:38)
[2018-12-02] MEDS: hydrALAZINE 25 MG TAB PO SCH ×3 (09:38→20:05)
[2018-12-02] MEDS: Sodium Bicarbonate Tab 325 MG TAB PO SCH ×3 (09:38→20:05)
[2018-12-02 09:58] LABS: #Eosinphils 0.2 thou/uL (0.0-0.7); #Lymphocytes 1.8 thou/uL (1.20-3.40); #Monocytes 1.1 thou/uL (0.11-0.59); #Neutrophils 7.2 thou/uL (1.40-6.50); %Basophils 0.2 % (0.0-1.0); %Eosinophils 2.2 % (0.0-10.0); %Lymphocytes 17.4 % (21.0-51.0); %Monocytes 10.8 % (0.0-10.0); %Neutrophils 69.5 % (42.0-75.0); Hemoglobin 7.5 g/dL (12.0-16.0); Mean Corpuscular HGB CONC 32.1 g/dL (32.0-36.0); Mean Corpuscular Hemoglobin 28.2 pg (27.0-31.0); Mean Corpuscular Volume 87.8 fL (78.0-98.0); Mean Platelet Volume 7.3 fL (7.4-10.4); Platelet Count 362 thou/uL (130-400); RBC Distribution Width 18.2 % (11.5-14.5); Red Blood Cell (RBC) Count 2.66 mill/uL (4.20-5.40); White Blood Cell (WBC) Count 10.4 thou/uL (4.8-10.8)
[2018-12-02 10:07] LABS: Anion Gap 11 mmol/L (10-20); BUN (Urea Nitrogen) 18 mg/dL (9.8-20.1); Calc. Creatinine Clearance 21 mL/min (70-130); Calcium 8.6 mg/dL (7.8-10.44); Carbon Dioxide 24 mmol/L (23-31); Chloride 113 mmol/L (98-107); Estimated GFR-MDRD 38; Glucose 124 mg/dL (83-110); Potassium 3.6 mmol/L (3.5-5.1); Sodium 144 mmol/L (136-145)
[2018-12-02 12:45] VITALS: BMI 16.5
[2018-12-02] MEDS: cefTRIAXone\\ROCEPHIN 1 GM in Sodium Chloride 0.9% 100 ML IVPB SCH (16:17)
--- NOTE | 2018-12-02 18:13 | PDOC.PN ---
- Subjective Encounter Start Date: 12/02/18 Encounter Start Time: 09:40 Pt seen for followup re: UTI. Not answering questions, unable to complete ROS. - Objective MAR Reviewed: Yes Vital Signs & Weight: Vital Signs (12 hours) Temp Pulse Resp BP BP Pulse Ox 12/02/18 16:21 98.2 F 74 15 132/62 97 12/02/18 14:27 67 122/63 12/02/18 13:00 98.0 F 67 16 133/67 97 12/02/18 09:43 99 12/02/18 09:38 86 153/71 H 12/02/18 07:38 98.4 F 86 16 153/71 H 99 Weight Admit Weight 104 lb 9.6 oz Weight 102 lb 4.8 oz I&O: 12/01/18 12/02/18 12/03/18 06:59 06:59 06:59 Intake Total 1600 2385 240 Balance 1600 2385 240 Result Diagrams: 12/02/18 09:36 12/02/18 09:36 Additional Labs: Labs reviewed by me Phys Exam - Physical Examination malnourished HEENT: moist MMs Neck: supple Respiratory: clear to auscultation bilateral Cardiovascular: RRR Gastrointestinal: soft R BKA Neurological: moves all 4 limbs Psychiatric: normal affect Dx/Plan (1) UTI (urinary tract infection) Status: Acute Comment: switch antibiotic to Augmentin for Proteus (2) Bacteremia Code(s): R78.81 - BACTEREMIA Status: Acute Comment: Staph epidermidis in 1/ 2 cultures, Bifidobacterium in the other culture, likely contaminants (3) Anemia Code(s): D64.9 - ANEMIA, UNSPECIFIED Status: Chronic Qualifiers: Anemia type: unspecified type Qualified Code(s): D64.9 - Anemia, unspecified Comment: hemoglobin stable,7.5 today, continue epoeitin (4) Diabetes Code(s): E11.9 - TYPE 2 DIABETES MELLITUS WITHOUT COMPLICATIONS Status: Chronic Qualifiers: Diabetes mellitus type: type 2 Diabetes mellitus complication status: with kidney complications Diabetes mellitus complication detail: with chronic kidney disease Chronic kidney disease stage: stage 3 (moderate) Comment: reasonable control (5) HTN (hypertension) Code(s): I10 - ESSENTIAL (PRIMARY) HYPERTENSION Status: Chronic Qualifiers: Hypertension type: essential hypertension Qualified Code(s): I10 - Essential (primary) hypertension Comment: controlled (6) Acute worsening of stage 4 chronic kidney disease Code(s): N18.4 - CHRONIC KIDNEY DISEASE, STAGE 4 (SEVERE) Status: Resolved Comment: creatinine improved to 1.59 today (7) Severe protein-calorie malnutrition Code(s): E43 - UNSPECIFIED SEVERE PROTEIN-CALORIE MALNUTRITION Status: Chronic Comment: present on admission, appreciate dietitian input - Plan continue antibiotics * . Review of Systems - Medications/Allergies Allergies/Adverse Reactions: Allergies Allergy/AdvReac Type Severity Reaction Status Date / Time No Known Drug Allergies Allergy Verified 11/28/18 04:23 Medications: Current Medications Acetaminophen (Tylenol) 650 mg PO Q4H PRN PRN Reason: Headache/Fever/Mild Pain (1-3) Amoxicillin/Clavulanate Potassium (Augmentin) 875 mg PO Q12HR [facility] Bisacodyl (Dulcolax) 10 mg PO DAILYPRN PRN PRN Reason: Constipation Epoetin Davion-epbx (Retacrit) 4,000 unit SC Q7D [facility] Last Admin: 11/29/18 12:59 Dose: 4,000 unit Famotidine (Pepcid) 20 mg PO DAILY [facility] Last Admin: 12/02/18 09:38 Dose: 20 mg Hydralazine HCl (Apresoline) 25 mg PO TID [facility] Last Admin: 12/02/18 14:27 Dose: 25 mg Sodium Chloride (Normal Saline 0.9%) 1,000 mls @ 70 mls/hr IV .[id number] [facility] Last Admin: 12/01/18 22:53 Dose: 1,000 mls Metoprolol Tartrate (Lopressor) 50 mg PO DAILY [facility] Last Admin: 12/02/18 09:38 Dose: 50 mg Nifedipine (Procardia Xl) 60 mg PO DAILY [facility] Last Admin: 12/02/18 09:38 Dose: 60 mg Ondansetron HCl (Zofran) 4 mg IVP Q6H PRN PRN Reason: Nausea/Vomiting Sodium Bicarbonate (Bicarbonate, Sodium) 325 mg PO TID [facility] Last Admin: 12/02/18 14:27 Dose: 325 mg
[2018-12-02] MEDS: Amoxicillin/Potassium Clav 875 MG TAB PO SCH (20:05)
[2018-12-02] MEDS: Sodium Chloride 0.9% 1,000 ML IV SCH (20:09)
[2018-12-03] MEDS: Sodium Chloride 0.9% 1,000 ML IV SCH (05:59)
[2018-12-03] MEDS: Sodium Bicarbonate Tab 325 MG TAB PO SCH (10:00)
[2018-12-03] MEDS: Amoxicillin/Potassium Clav 875 MG TAB PO SCH (10:00)
[2018-12-03] MEDS: hydrALAZINE 25 MG TAB PO SCH (10:00)
[2018-12-03] MEDS: NIFEdipine XL 60 MG TAB PO SCH (10:00)
[2018-12-03] MEDS: Famotidine 20 MG TAB PO SCH (10:00)
[2018-12-03] MEDS: Metoprolol Tartrate 50 MG TAB PO SCH (10:00)
--- NOTE | 2018-12-03 10:14 | PRG ---
DATE OF SERVICE: 12/03/2018 SUBJECTIVE: Ms. Marina is an 78-year-old black female who was seen by the Renal Service for her acute kidney injury on top of her chronic renal failure. She had a superimposed hemodynamically-mediated renal dysfunction. She is also improving with gentle volume repletion. She has also been treated for UTI. Currently, renal function is much improved. No complaints today. No chest pain or shortness of breath. OBJECTIVE: VITAL SIGNS: Blood pressure 149/56, heart rate 84, respiratory rate 22, temperature 98.1, and pulse ox 93%. GENERAL: Awake, alert, comfortable, not in distress. SKIN: Adequate turgor. HEENT: Slightly pale conjunctivae. Anicteric sclerae. NECK: No neck mass. No carotid bruits. No JVD. CHEST: No deformities. LUNGS: Clear breath sounds. HEART: Normal sinus rhythm. No murmur. No gallops. No rubs. ABDOMEN: Globular, soft, nontender. No masses. EXTREMITIES: No edema. MEDICATIONS: Medications of December 03, 2018, was reviewed. LABORATORY DATA: Laboratories of December 02, 2018; white count 10.4, hemoglobin 7.5. Sodium 144, potassium 3.6, chloride 113, carbon dioxide 24, BUN 18, creatinine 1.59, glucose 124, calcium 8.6. ASSESSMENT AND PLAN: 1. Acute kidney injury, clinically improving renal function. Please note that the creatinine peaked at a value of 3.69 and currently is now 1.59. Continue current management. No indication for any dialytic intervention. 2. Anemia. Started on weekly Epogen. 3. Metabolic acidosis, much improved with sodium bicarbonate. 4. Agree with current management. Recheck basic metabolic and CBC in a.m. Job ID: [id number]
[2018-12-03 11:44] VITALS: BP 129/65; TEMP 97.9
--- NOTE | 2018-12-03 22:44 | DIS ---
DATE OF ADMISSION: 11/28/2018 DATE OF DISCHARGE: 12/03/2018 PRIMARY CARE PROVIDER: Vishnu Zepeda MD DISCHARGE DIAGNOSES: 1. Urinary tract infection. 2. Acute on chronic stage IV renal failure. 3. Hyponatremia. 4. Hyperkalemia. 5. Bacteremia, likely contaminant. 6. Anemia. CONDITION OF PATIENT ON THE DAY OF DISCHARGE: Stable. I assessed Ms. Marina on the day of discharge. She denies any complaints. Vital signs are stable. S1 and S2 are heard, regular. Lungs are clear to auscultation bilaterally. CONSULTATIONS DURING THIS HOSPITALIZATION: Nephrology, Dr. Mauri Young. DISCHARGE MEDICATIONS: 1. Famotidine 20 mg daily. 2. Hydralazine 25 mg 3 times a day. 3. Metoprolol tartrate 50 mg daily. 4. Nifedipine 60 mg daily. 5. Augmentin 875 mg 2 times a day for 5 days. 6. Erythropoietin 4000 units subcutaneously every week. 7. Sodium bicarbonate 325 mg 3 times a day. HOSPITAL COURSE: Ms. Marina is a pleasant 78-year-old lady, who was admitted to [facility] on November 28, 2018, for acute on chronic renal failure and urinary tract infection. Please refer to my history and physical note dated November 28, 2018, for further details. She was seen by Nephrology Service. She improved with intravenous fluids. She also had an increase in her sodium bicarbonate dose. One out of two blood cultures were positive for Bifidobacterium, the other blood culture was positive for coagulase-negative Staphylococcus, both of which are probable contaminants. Urine culture grew Proteus mirabilis which was resistant to ciprofloxacin, levofloxacin and nitrofurantoin, but was otherwise pansensitive. She has been stepped down to Augmentin prior to discharge. She was advised to follow up with her primary care provider for final urine culture reports, since it appears that second gram-negative latricia was also being isolated. Stool occult blood test was negative during this hospitalization. This was done because of anemia. She has been started on Procrit. On December 02, Ms. Marina had sodium 144, potassium 3.6, creatinine 1.59. White count 10,400, hemoglobin 7.5, and platelet count 362,000. Many thanks for allowing me to participate in your patient's care. Please feel free to contact me with any questions or concerns. DISCHARGE DESTINATION: [facility], from where she was admitted to the hospital. TIME SPENT: Total amount of time spent coordinating this discharge: 32 minutes. FOLLOW UP: With primary care provider in 3-5 days. Job ID: [id number] [email or web address]
== END 2018-12-03 14:18 | DRG 682 ==
LOC: ERS 20:48 → ERHOLD 11-28 00:49 → T4-A 11-28 03:02
PROVIDERS: ADMIT Internal Medicine; ATTEND Internal Medicine
DX: N17.9 Acute kidney failure, unspecified (principal); E43 Unspecified severe protein-calorie malnutrition; N39.0 Urinary tract infection, site not specified; E87.1 Hypo-osmolality and hyponatremia; Z68.1 Body mass index [BMI] 19.9 or less, adult; E87.2 Acidosis; E86.0 Dehydration; I12.9 Hypertensive chronic kidney disease with stage 1 through stage 4 chronic kidney disease, or unspecified chronic kidney disease; N18.4 Chronic kidney disease, stage 4 (severe); E87.5 Hyperkalemia; F03.90 Unspecified dementia, unspecified severity, without behavioral disturbance, psychotic disturbance, mood disturbance, and anxiety; D64.9 Anemia, unspecified; E11.22 Type 2 diabetes mellitus with diabetic chronic kidney disease; B96.4 Proteus (mirabilis) (morganii) as the cause of diseases classified elsewhere; Z16.39 Resistance to other specified antimicrobial drug; Z89.511 Acquired absence of right leg below knee; Z79.2 Long term (current) use of antibiotics; Z86.73 Personal history of transient ischemic attack (TIA), and cerebral infarction without residual deficits; Z87.891 Personal history of nicotine dependence
CPT/HCPCS: 36415; 36416; 51701; 71045; 80048; 80053; 81003; 81015; 82010; 82274; 82728; 83605; 85025; 87040; 87076; 87077; 87086; 87149; 87186; 93005; 96361; 96365; 99213; A4353; C1713; G0463; J0696; J1644; J3370; J3490; J7070; Q5105

== ENCOUNTER 2019-03-11 10:05 | Day surgery (SDC) | payer MEDICARE, MEDICAID ==
[2019-03-11] MEDS ORDERED: EPOETIN ALFA-EPBX (ESRD) 40,000 UNIT/ML VIAL ONE (10:07)
[2019-03-11 10:23] VITALS: BP 185/76
== END 2019-03-11 10:26 | disposition home or self-care (01) ==
LOC: ONC/OP 10:05
PROVIDERS: ATTEND Internal Medicine Hematology & Oncology
DX: D50.0 Iron deficiency anemia secondary to blood loss (chronic) (principal); N18.4 Chronic kidney disease, stage 4 (severe); D63.1 Anemia in chronic kidney disease
CPT/HCPCS: 96372; Q5105

== ENCOUNTER 2019-04-26 11:52 | Day surgery (SDC) | payer MEDICARE, MEDICAID ==
[2019-04-26] MEDS ORDERED: EPOETIN ALFA-EPBX (ESRD) 40,000 UNIT/ML VIAL ONE (11:56)
[2019-04-26] MEDS ORDERED: EPOETIN ALFA-EPBX (ESRD) 40,000 UNIT/ML VIAL SC SCH (12:15)
== END 2019-04-26 12:39 | disposition home or self-care (01) ==
LOC: ONC/OP 11:52
PROVIDERS: ATTEND Internal Medicine Hematology & Oncology
DX: N18.4 Chronic kidney disease, stage 4 (severe) (principal); D63.1 Anemia in chronic kidney disease; D50.0 Iron deficiency anemia secondary to blood loss (chronic)
CPT/HCPCS: 96372; Q5105

== ENCOUNTER 2019-06-03 11:30 | Day surgery (SDC) | payer MEDICARE, OTHER ==
[2019-06-03] MEDS ORDERED: EPOETIN ALFA-EPBX (ESRD) 40,000 UNIT/ML VIAL ONE (11:35)
[2019-06-03 11:43] VITALS: BP 129/62; TEMP 97.7
== END 2019-06-03 11:44 | disposition home or self-care (01) ==
LOC: ONC/OP 11:30
PROVIDERS: ATTEND Internal Medicine Hematology & Oncology
DX: N18.4 Chronic kidney disease, stage 4 (severe) (principal); D63.1 Anemia in chronic kidney disease; D50.0 Iron deficiency anemia secondary to blood loss (chronic)
CPT/HCPCS: 96372; Q5105

== ENCOUNTER 2019-07-01 11:02 | Day surgery (SDC) | payer MEDICARE, OTHER ==
[2019-07-01] MEDS ORDERED: EPOETIN ALFA-EPBX (ESRD) 40,000 UNIT/ML VIAL ONE (11:04)
[2019-07-01 11:40] VITALS: BP 149/67; TEMP 97.6
== END 2019-07-01 11:40 | disposition home or self-care (01) ==
LOC: ONC/OP 11:02
PROVIDERS: ATTEND Internal Medicine Hematology & Oncology
DX: N18.4 Chronic kidney disease, stage 4 (severe) (principal); D63.1 Anemia in chronic kidney disease; D50.0 Iron deficiency anemia secondary to blood loss (chronic)
CPT/HCPCS: 96372; Q5105

== ENCOUNTER 2019-07-05 11:42 | Inpatient (IN) | payer MEDICARE, OTHER ==
[2019-07-05 12:52] LABS: Hemoglobin 10.4 g/dL (12.0-16.0); Mean Corpuscular HGB CONC 31.5 g/dL (32.0-36.0); Mean Corpuscular Hemoglobin 28.5 pg (27.0-31.0); Mean Corpuscular Volume 90.6 fL (78.0-98.0); Mean Platelet Volume 10.6 fL (7.4-10.4); Platelet Count 385 thou/uL (130-400); RBC Distribution Width 19.5 % (11.5-14.5); Red Blood Cell (RBC) Count 3.65 mill/uL (4.20-5.40); White Blood Cell (WBC) Count 17.2 thou/uL (4.8-10.8)
[2019-07-05 13:02] LABS: Band 2 % (5-11); Lymphocytes 1 % (21-51); MDiff Complete? YES; Monocytes 12 % (0-10); Neutrophil 85 % (42-75); Platelet Morphology Comment Appears Adequate; Polychromasia SLIGHT = 2-3 cells (100X) (0-2/hpf)
[2019-07-05 15:12] LABS: Bacteria/HPF 3+ HPF (None Seen); Bilirubin Negative (Negative); Blood, Urine 2+ (Negative); Clarity Extra Turbid (Clear); Glucose, Urine (Dipstick) 70 mg/dL (Negative); Leukocyte 500 Leu/uL (Negative); Nitrite Negative (Negative); Protein, Urine (Dipstick) 200 mg/dL (Neg-Trace); RBC/HPF 21-50 HPF (0-3); Urobilinogen 6 mg/dL (Less than 2); WBC/HPF Greater than 50 HPF (0-3)
[2019-07-05] MEDS ORDERED: cefTRIAXone\\ROCEPHIN 1 GM VIAL ONE (16:26)
--- NOTE | 2019-07-05 17:06 | RAD ---
PORTABLE CHEST: 07/05/19 HISTORY: Weakness. COMPARISON: 11/27/18 study. Heart size is within normal limits. There are atherosclerotic changes of the aorta. There is a mass-l abdiel area in the right upper lobe. It could conceivably be infiltrate, but could also represent a pulm onary mass. It is not definitely visualized on the prior exam. Some of this is caused by overlap with the costochondral junction of the first rib but this appears to be more than just simply costochondr al junction. IMPRESSION: Right upper lobe lung mass versus infiltrate. Further evaluation with CT would be recommended. Findings discussed with Dr. Kingston. POS: [facility]
[2019-07-05 17:36] LABS: Albumin 3.1 g/dL (3.4-4.8)
[2019-07-05] MEDS ORDERED: Azithromycin 500 MG VIAL ONE (17:36)
[2019-07-05 17:38] LABS: Chloride 106 mmol/L (98-107); Potassium 5.8 mmol/L (3.5-5.1); Sodium 137 mmol/L (136-145)
[2019-07-05 17:39] LABS: Globulin 4.6 g/dL (2.4-3.5); Glucose 487 mg/dL (83-110); Protein, Total 7.7 g/dL (6.0-8.3)
[2019-07-05 17:40] LABS: Anion Gap 19 mmol/L (10-20); Carbon Dioxide 18 mmol/L (23-31)
[2019-07-05 17:41] LABS: Bilirubin, Total 0.4 mg/dL (0.2-1.2)
[2019-07-05 17:42] LABS: Alkaline Phosphatase 173 U/L (40-110); Calc. Creatinine Clearance 0 mL/min (70-130); Estimated GFR-MDRD 18
[2019-07-05 17:43] LABS: BUN (Urea Nitrogen) 71 mg/dL (9.8-20.1)
[2019-07-05 17:44] LABS: AST (SGOT) 30 U/L (5-34)
[2019-07-05 17:45] LABS: ALT (SGPT) 34 U/L (8-55)
--- NOTE | 2019-07-05 18:37 | CT ---
CT CHEST WITHOUT CONTRAST: 07/05/19 HISTORY: Weakness, decreased appetite, abdominal pain and tenderness. FINDINGS: Absence of IV contrast reduces the sensitivity of exam particularly for evaluation of mediastinal, hi lar and vascular structures. There are vascular calcifications without evidence of aneurysmal dilatation of the thoracic aorta. No pleural or pericardial effusions are seen. There is mediastinal lymphadenopathy. A 3.5 cm solid mass is seen in the right upper lobe. There is s uggestion of right hilar lymphadenopathy. Upper abdominal tomograms demonstrate numerous masses in the liver suspicious for metastatic disease. There is suggestion of right hydronephrosis also seen on the CT scan of 11/12/18. There are degenerative changes in the spine. There are low density nodules in the thyroid gland measuring 2 cm on the right and 1.8 cm on the left . There could be further evaluated with an ultrasound. IMPRESSION: Findings suspicious for right lung malignancy with metastatic disease to the mediastinal and right hi lar lymph nodes and the liver. POS: OFF
[2019-07-05] MEDS ORDERED: Ondansetron PF 4 MG/2 ML Vial IVP PRN (20:53)
[2019-07-05] MEDS ORDERED: Acetaminophen 325 MG TAB PO PRN (20:53)
--- NOTE | 2019-07-05 20:56 | PDOC.HHP ---
Hospitalist HPI - History of Present Illness weakness History of Present Illness: History was obtained from the daughter since patient is unable to state why she is in the emergency room. Per the sister, the patient has progressively gotten more weak over the past few weeks. Sister states that she was refusing to eat liquids and solids. She tried supplementing her with ensure and it wasn't working. She was also pocketing more food in her mouth than usual. The patient usually walks at baseline with a walker but the past few weeks they were unable to stand her up. The sister also noticed decreased urine output due to decreased fluid intake. She is incontinent at baseline. The patient has a chronic cough for the past two years but since last week there has been more mucus coming up. The patient has also had gradually worsening shortness of breath on exertion. The patient denies nausea, vomiting , or abdominal pain. She has not had any fevers, chills, abdominal pain, constipation or diarrhea. Sister reports weight loss, but unclear how much. Three weeks ago she weighed 110 pounds. ED Course: While in the ER, the patient had a chest X ray that showed right upper lobe lung mass versus infiltrate. CT chest shows right upper lobe mass concerning for malignancy with metastases in liver. Discussed findings with sister, she states she would be interested in working this up further but will talk to her son. Hospitalist ROS - Review of Systems Constitutional: denies: fever, chills ENT: denies: ear pain, ear discharge Respiratory: reports: cough Cardiovascular: denies: chest pain, palpitations, orthopnea, paroxysmal noc. dyspnea Gastrointestinal: reports: abdominal pain. denies: nausea, vomiting, diarrhea, constipation Genitourinary: denies: dysuria, frequency, incontinence Musculoskeletal: denies: neck pain, shoulder pain Skin: denies: rash, lesions Hospitalist History - Past Medical History Cardiac: reports: HTN [employer] D[employer]EL: reports: no pertinent history (Alzheimers/ Dementia) Gastrointestinal: reports: GERD Renal/: reports: Chronic renal insuff - Past Surgical History Other Surgical History: Left BKA Urogenital implants Appendectomy - Family History Other Family History: No medical problems in the family - Social History Smoking Status: Former smoker Alcohol: reports: Occassional Drugs: reports: none Living Situation: Other (lives with her sister) - Exam General Appearance: NAD, awake alert Eye: PERRL, anicteric sclera ENT: normocephalic atraumatic, no oropharyngeal lesions Neck: supple, symmetric, no JVD, no thyromegaly Heart: RRR, no murmur, no gallops, no rubs Respiratory: CTAB, no wheezes, no rales, no ronchi Gastrointestinal: soft, non-tender, non-distended, normal bowel sounds Extremities: no cyanosis, no clubbing, no edema Skin: normal turgor, no lesions, no rashes Hospitalist Results - Labs Result Diagrams: 07/05/19 12:37 07/05/19 16:54 Lab results: WBC 17.2 thou/uL (4.8-10.8) H 07/05/19 12:37 Hgb 10.4 g/dL (12.0-16.0) L 07/05/19 12:37 Hct 33.0 % (36.0-47.0) L 07/05/19 12:37 MCV 90.6 fL (78.0-98.0) 07/05/19 12:37 Plt Count 385 thou/uL (130-400) 07/05/19 12:37 Band Neuts % (Manual) 2 % (5-11) L 07/05/19 12:37 Sodium 137 mmol/L (136-145) 07/05/19 16:54 Potassium 5.8 mmol/L (3.5-5.1) H 07/05/19 16:54 Chloride 106 mmol/L (98-107) 07/05/19 16:54 Carbon Dioxide 18 mmol/L (23-31) L 07/05/19 16:54 BUN 71 mg/dL (9.8-20.1) H 07/05/19 16:54 Creatinine 3.03 mg/dL (0.6-1.1) H 07/05/19 16:54 Glucose 487 mg/dL (83-110) H 07/05/19 16:54 Calcium 10.0 mg/dL (7.8-10.44) 07/05/19 16:54 Total Bilirubin 0.4 mg/dL (0.2-1.2) 07/05/19 16:54 AST 30 U/L (5-34) 07/05/19 16:54 ALT 34 U/L (8-55) 07/05/19 16:54 Alkaline Phosphatase 173 U/L (40-110) H 07/05/19 16:54 Troponin I 0.023 ng/mL (< 0.028) 07/05/19 12:37 Serum Total Protein 7.7 g/dL (6.0-8.3) 07/05/19 16:54 Albumin 3.1 g/dL (3.4-4.8) L 07/05/19 16:54 Urine Ketones Trace mg/dL (Negative) A 07/05/19 14:50 Urine Blood 2+ (Negative) A 07/05/19 14:50 Urine Nitrite Negative (Negative) 07/05/19 14:50 Ur Leukocyte Esterase 500 Kiley/uL (Negative) A 07/05/19 14:50 Urine RBC 21-50 HPF (0-3) A 07/05/19 14:50 Urine WBC Greater than 50 HPF (0-3) A 07/05/19 14:50 Ur Squamous Epith Cells 11-20 HPF (0-3) A 07/05/19 14:50 Urine Bacteria 3+ HPF (None Seen) A 07/05/19 14:50 Hospitalist H&P A/P - Plan Plan: CT chest: 3.5 cm solid mass in right upper lobe with right hilar lymphadenopathy with metastatic disease to the mediastinal and right hilar lymph nodes and the liver. Chest X ray: right upper lung mass vs infiltrate. This is an 79 year old female with past medical history of Alzheimers, hypertension, GERD who was brought in to the ER for increasing weakness, found to have right lung mass with possible metastatic disease to the liver. Right lung mass - possibly tumor vs cancer - WBC of 17 noted, with cough and shortness of breath - continue ceftriaxone and azithromycin for possible pneumonia. Check blood cultures and sputum culture - consult oncology tomorrow RUQ pain - likely secondary to liver metastases Right renal hydronephrosis - will obtain CT abdomen for further assessment - family interested in biopsy to see if this is cancer for peace of mind #Hyperkalemia - potassium 5.8, check EKG - insulin 10 units IV, 1 amp D50 - will start IV fluids #Acute Kidney Injury - creatinine up to 3, baseline around mid 2 - possibly combination of dehydration and hydronephrosis - will start IV fluids - place quigley catheter #UTI #Leukocytosis - WBC 17 with turbid urine. COntinue IV ceftriaxone, blood culture and urine culture pending #Anemia - Hb 10.4 - check iron panel, B12/folate #Thyroid nodules -will check thyroid ultrasound #Hypertension - hold home medications DVT prophylaxis: heparin COde status: full code for now
[2019-07-05] MEDS ORDERED: Insulin Regular 300 UNITS/3 ML VIAL IVP SCH (22:00)
[2019-07-05] MEDS ORDERED: Dextrose 50% Abboject 50 ML SYRINGE SLOW IVP SCH (22:00)
[2019-07-05 22:17] LABS: Anion Gap 17 mmol/L (10-20); BUN (Urea Nitrogen) 66 mg/dL (9.8-20.1); Calc. Creatinine Clearance 0 mL/min (70-130); Calcium 9.3 mg/dL (7.8-10.44); Carbon Dioxide 18 mmol/L (23-31); Chloride 111 mmol/L (98-107); Estimated GFR-MDRD 19; Glucose 447 mg/dL (83-110); Iron 16 ug/dL (50-170); Iron Binding Capacity, Total 110 mcg/dL (265-497); Potassium 5.6 mmol/L (3.5-5.1); Sodium 140 mmol/L (136-145)
--- NOTE | 2019-07-05 22:32 | CT ---
CT ABDOMEN AND PELVIS WITHOUT CONTRAST: 07/05/19 HISTORY: Abdominal pain, liver metastatic disease. COMPARISON: 11/12/18. FINDINGS: Absence of oral and IV contrast reduces the sensitivity of the exam particularly for evaluation of so lid organs and bowel. Numerous liver masses are consistent with metastatic disease. No opacified gallstones are seen. The s pleen, pancreas, and adrenal glands are grossly unremarkable. There is ureteral stent on the right si de with looped ends in the right renal pelvis and urinary bladder. There is right sided hydronephrosi s. There is a punctate calculus in the inferior pole of the left kidney. No left sided hydroureteron ephrosis seen. No calculi is seen in the left ureter, urinary bladder, right ureter or the right kidn ey. No free air of free fluid is seen in the abdomen or pelvis. There are vascular calcifications without evidence of aneurysmal dilatation of the abdominal aorta. There are degenerative changes in the spin e. There is an 11 mm lymph node in the left inguinal region. IMPRESSION: 1. Findings are highly suspicious for multiple hepatic metastases. 2. Punctate nonobstructing left renal calculus. 3. Right ureteral stent. POS: OFF
[2019-07-05 22:39] VITALS: BMI 20.1
[2019-07-05] MEDS: Sodium Chloride 0.9% 1,000 ML IV SCH (23:07)
[2019-07-06] MEDS: cefTRIAXone\\ROCEPHIN 1 GM in Sodium Chloride 0.9% 100 ML IVPB SCH (05:50)
[2019-07-06 06:33] LABS: Iron 16 ug/dL (50-170); Iron Binding Capacity, Total 106 mcg/dL (265-497)
[2019-07-06 06:35] LABS: Anion Gap 18 mmol/L (10-20); BUN (Urea Nitrogen) 59 mg/dL (9.8-20.1); Calc. Creatinine Clearance 15 mL/min (70-130); Calcium 9.5 mg/dL (7.8-10.44); Carbon Dioxide 16 mmol/L (23-31); Chloride 114 mmol/L (98-107); Estimated GFR-MDRD 22; Glucose 326 mg/dL (83-110); Iron 14 ug/dL (50-170); Iron Binding Capacity, Total 105 mcg/dL (265-497); Potassium 4.9 mmol/L (3.5-5.1); Sodium 143 mmol/L (136-145)
[2019-07-06 06:55] LABS: Hemoglobin 8.9 g/dL (12.0-16.0); Lymphocytes 5 % (21-51); MDiff Complete? YES; Mean Corpuscular HGB CONC 31.7 g/dL (32.0-36.0); Mean Corpuscular Hemoglobin 28.8 pg (27.0-31.0); Mean Corpuscular Volume 90.8 fL (78.0-98.0); Mean Platelet Volume 9.4 fL (7.4-10.4); Monocytes 6 % (0-10); Neutrophil 89 % (42-75); Platelet Count 328 thou/uL (130-400); White Blood Cell (WBC) Count 16.1 thou/uL (4.8-10.8)
--- NOTE | 2019-07-06 08:25 | ULT ---
Thyroid ultrasound: 07/06/2019 HISTORY: Thyroid nodules noted on prior chest CT TECHNIQUE: Multiplanar grayscale sonographic imaging of the thyroid gland obtained. FINDINGS: Secondary to inability to properly position the patient, the thyroid isthmus in the left lo be of the thyroid gland could not be visualized. The right lobe of the thyroid gland is heterogeneous and is essentially replaced with nodules, incompletely assessed on this examination. Th ere is lymphadenopathy lateral to the right lobe of the thyroid gland measuring up to 1.6 cm in short axis dimension, suspicious for metastatic disease. IMPRESSION: Suboptimal assessment of the thyroid gland. Partially imaged right lobe is heterogeneous and replaced by nodules. Findings suspicious for lymphadenopathy within the neck on the right concerning for metastatic diseas e.
[2019-07-06] MEDS: Azithromycin 250 MG TAB PO SCH (08:43)
[2019-07-06] MEDS ORDERED: Dextrose 5% in Water 1,000 ML IV PRN (12:52)
[2019-07-06] MEDS ORDERED: Dextrose 50% Abboject 50 ML SYRINGE SLOW IVP PRN (12:52)
[2019-07-06] MEDS: Sodium Chloride 0.9% 1,000 ML IV SCH ×2 (13:18→17:39)
[2019-07-06] MEDS: HumaLOG 300 UNITS/3 ML VIAL SC PRN ×2 (13:18→17:40)
--- NOTE | 2019-07-06 18:49 | PDOC.HOSPP ---
- Subjective Encounter Date: 07/06/19 Encounter Time: 13:00 Subjective: The patient is not very verbal. She is laying in bed, states that she doesn't want to eat. She says she tried drinking liquid but couldn't swallow it easily. Denies nausea or vomiting Her cough has improved - Objective Vital Signs & Weight: Vital Signs (12 hours) Temp Pulse Resp BP Pulse Ox 07/06/19 16:00 98.9 F 91 18 144/66 H 97 07/06/19 11:16 98.3 F 88 16 136/61 97 07/06/19 08:00 98 07/06/19 07:57 98.7 F 88 18 123/60 98 Weight Admit Weight 121 lb Weight 121 lb I&O: 07/05/19 07/06/19 07/07/19 06:59 06:59 06:59 Output Total 350 400 Balance -350 -400 Result Diagrams: 07/06/19 06:08 07/06/19 06:08 Additional Labs: Accuchecks 07/06/19 07/06/19 07/06/19 17:02 11:22 05:03 POC Glucose 410 H 521 H 359 H Hospitalist ROS - Review of Systems Constitutional: denies: fever, chills Respiratory: reports: cough - Medication Medications: Active Medications Generic Name Dose Route Start Last Admin Trade Name Freq PRN Reason Stop Dose Admin Acetaminophen 650 mg 07/05/19 20:53 07/06/19 08:43 Tylenol PO 650 mg Q4H PRN Administration Headache/Fever/Mild Pain (1-3) Azithromycin 250 mg 07/06/19 09:00 07/06/19 08:43 Zithromax PO 07/09/19 09:01 250 mg DAILY ROHIT Administration Ceftriaxone Sodium 1 gm/ 100 mls @ 200 mls/hr 07/06/19 06:00 07/06/19 05:50 Sodium Chloride IVPB 100 mls Q24HR ROHIT Administration Sodium Chloride 1,000 mls @ 100 mls/hr 07/05/19 22:00 07/06/19 17:39 Normal Saline 0.9% IV 1,000 mls .Q10H ROHIT Administration Insulin Human Lispro 0 units 07/06/19 12:52 07/06/19 17:40 Humalog SC 6 unit .MILD SLIDING SCALE PRN Administration Mild Correctional Scale - Exam General Appearance: NAD, awake alert General - other findings: cachexic Eye: PERRL, anicteric sclera ENT: normocephalic atraumatic, no oropharyngeal lesions Neck: supple, symmetric, no JVD, no thyromegaly Heart: RRR, no murmur, no gallops, no rubs Respiratory: CTAB, no wheezes, no rales, no ronchi Gastrointestinal: soft, non-distended, normal bowel sounds, no palpable masses, no hepatomegaly, no splenomegaly Gastrointestinal - other findings: quigley catheter in place. RUQ tenderness Extremities: no cyanosis, no clubbing, no edema Skin: normal turgor, no lesions, no rashes Neurological: cranial nerve grossly intact, normal sensation to touch, no focal deficits, no new deficit Musculoskeletal: normal tone, normal strength, no muscle wasting Hosp A/P - Plan Thyroid ultrasound: findings suspicious for lymphadenopathy within the neck on the right concerning for metastatic disease. CT abdomen: numerous liver masses are consistent with metastatic disease. There is right sided hydronephrosis. CT chest: 3.5 cm solid mass in right upper lobe with right hilar lymphadenopathy with metastatic disease to the mediastinal and right hilar lymph nodes and the liver. Chest X ray: right upper lung mass vs infiltrate. This is an 79 year old female with past medical history of Alzheimers, hypertension, GERD who was brought in to the ER for increasing weakness, found to have right lung mass with possible metastatic disease to the liver. #Right lung mass - possibly pneumonia vs cancer #RUQ pain secondary to Liver metastases #Thyroid nodule secondary to metastases - pt presented with cough and shortness of breath. CT chest showed RUL lung mass with metastases to hilar area suspicious for possible cancer - WBC improved with antibiotics. Continue IV ceftriaxone and azithromycin - blood cultures negative, sputum culture pending - patient had CT abdomen concerning for liver metastases and thyroid ultrasound concerning for thyroid metastases - oncology consulted, discussed with family members. They have agreed to not work this up further - will place palliative care consult #Acute Kidney Injury - improving - creatinine down to 2.5. Continue IV fluids - quigley placed. Will repeat renal US tomorrow to evaluate resolution of hydronephrosis - family requesting Dr. Young to be consulted #Dysphagia -speech consulted, recommended a pureed diet # Possible UTI #Leukocytosis - urine culture growing possible strep. Sensitivities pending - continue ceftriaxone #Anemia - Hb down to 8.9 - B12/folate normal. Check ferritin level in the am #Hypertension - hold home medications Dispo: [facility] placement on d/c per sisters request Code status: full code
--- NOTE | 2019-07-06 21:25 | RAD ---
LEFT FOOT THREE VIEWS: 07/06/19 HISTORY: Wound left great toe and second toe. FINDINGS/IMPRESSION: There is bony destruction involving the bones in the adjacent site and distal sides of the first MTP joint, highly suspicious for osteomyelitis. There is also some bony destruction involving the tuft of the distal phalanx of the second toe which was also suspicious for osteomyelitis. POS: OFF
--- NOTE | 2019-07-06 23:23 | CON ---
DATE OF CONSULTATION: REASON FOR CONSULT: Metastatic disease. HISTORY OF PRESENT ILLNESS: Ms. Marina is a pleasant 79-year-old female with past medical history of Alzheimer's, who over the last few weeks, has gotten progressively weaker with a poor appetite, shortness of breath, and inability to walk secondary to weakness. She is cared for by her sister. She was brought to the emergency room for evaluation and underwent an abdominal and pelvis CT, which showed numerous liver masses consistent with metastatic disease. She then underwent a chest x-ray, which showed a right upper lobe lung mass. CT scan of the chest confirmed a 3.5 solid mass in the right upper lobe. There was mediastinal and hilar lymphadenopathy. Again, the numerous masses in the liver were noted. She also underwent a thyroid CT. There was lymphadenopathy lateral to the right lobe of the thyroid gland measuring 1.6 cm. This was also suspicious for metastatic disease. She was admitted for further workup and IV hydration. We were asked to see the patient regarding diagnosis. PAST MEDICAL HISTORY: 1. Alzheimer's. 2. Hypertension. 3. GERD. 4. Chronic renal insufficiency. PAST SURGICAL HISTORY: 1. BKA. 2. Urogenital implants. 3. Appendectomy. ALLERGIES: NO KNOWN DRUG ALLERGIES. HOME MEDICATIONS: Famotidine, Apresoline, metoprolol, and nifedipine. FAMILY HISTORY: Noncontributory. SOCIAL HISTORY: Single, lives with her sister. She is a former smoker. REVIEW OF SYSTEMS: The patient denies any complaints, although she is not oriented. PHYSICAL EXAMINATION: VITAL SIGNS: Temperature is 98.3, pulse is 88, respiratory rate 16, BP is 136/61. She is 97% on room air. GENERAL: This is a very pleasant female, in no acute distress. HEENT: Normocephalic, atraumatic. Pupils are equal and reactive to light. NECK: Supple. CV: Regular rate and rhythm. LUNGS: Clear anterior. ABDOMEN: Soft and nontender. Bowel sounds are positive. EXTREMITIES: No clubbing, cyanosis. She does have a wound to her left foot that is dressed. SKIN: There is no rash. HEMATOLOGICAL: There is no petechiae or purpura. NEUROLOGICAL: Patient is not oriented, but does follow commands. LYMPH: Palpable cervical and supraclavicular lymphadenopathy. PERTINENT LABS AND X-RAYS: Current WBCs are 16.1, hemoglobin 8.9, hematocrit 28.1, platelet count is 328,000. She got 89% neutrophils, 5% lymphocytes. Sodium is 143, potassium 4.9, chloride 114, CO2 of 16, BUN is 59, creatinine 2.5, glucose is 521, calcium 9.5, bilirubin 0.4, AST is 30, ALT is 34, alkaline phosphatase is 173. Serum total protein 7.7, albumin 3.1, globulin 4.6, B12 is 686, folate is 13. Urine shows 3+ bacteria. ASSESSMENT: 1. Right upper lobe lung mass with lymphadenopathy and liver lesions, likely malignant. 2. Acute kidney injury. 3. Urinary tract infection. DISCUSSION: The patient was examined at bedside with sister present. She is pleasantly confused and is not oriented to place or time. She does not know why she is admitted to the hospital. Discussion with the sister we could certainly get a biopsy of one of the liver lesions to determine exactly what type of cancer it is, although it is likely metastatic lung cancer. She does have a history of smoking as well. Palliative chemotherapy would be the treatment upfront, although it would be difficult to treat the patient due to her altered mental status. The sister would like to keep the patient comfortable and does not wish to pursue further workup. human resources communications manager has been consulted for possible placement and hospice care. Thank you for the consult on this pleasant family. Job ID: [id number]
--- NOTE | 2019-07-07 01:21 | CON ---
DATE OF CONSULTATION: HISTORY OF PRESENT ILLNESS: Ms. Shabana Marina is an 79-year-old black female with dementia, history of right BKA and has had deteriorated functional status and brought to the hospital where she has been admitted to the hospitalist service and I was consulted to see her regarding a diabetic left foot wound. She has had a prior BKA, right. CAT scans have revealed hepatic metastasis from a probable pulmonary primary. She has a right ureteral stent in place. Family is not available to give a history. She has mediastinal lymphadenopathy, 3.5 cm solid mass in the right upper lobe. This suggests right hilar lymphadenopathy and liver metastasis as noted above. [facility] has been consulted as well as palliative care. ALLERGIES: NONE ACCORDING TO RECORDS. PAST MEDICAL HISTORY: Hypertension, GERD, chronic renal insufficiency, right ureteral stent. PAST SURGICAL HISTORY: Appendectomy, ureteral stent, right BKA. REVIEW OF SYSTEMS: Not possible. SOCIAL HISTORY: It is reported she has smoked in the past. The patient lives with her sister. I am told by nursing that there are plans that she go to a care facility post hospitalization. Family is discussing plan of care, she is a full code. PHYSICAL EXAMINATION: VITAL SIGNS: Height 5 foot 5, 121 pounds, BMI. Temperature 98.1, 91, 144/66. HEAD, EARS, EYES, NOSE AND THROAT: Unremarkable. LUNGS: Clear to auscultation. CARDIAC: Rhythm without murmur or gallop. ABDOMEN: Soft, mild tenderness. No guarding or rebound. EXTREMITIES: Right BKA, well healed. Left foot reveals chronic inflammatory changes to second toe. There is a thick callus into the second toe. Second toe is slightly swollen. There is darkened skin with hyperpigmentation in the left great toe medially, demonstrates an open wound that tracks about 3 cm and by probing with Q-tip involves the head of the metatarsal and proximal phalanx of the great toe. There are chronic inflammatory changes with thickened skin. There is purulent discharge on probing. Culture submitted. LABORATORY DATA: White count 16, hemoglobin 8.9, BUN 59, creatinine 2.5. ASSESSMENT/PLAN: 1. Diabetic left foot infection. It is likely that she will need an amputation of the great toe, possibly the second. We will obtain x-rays of the left foot and discuss with family plan of care. 2. Probably lung mass with hepatic metastasis. 3. Dementia. 4. Nonambulatory. 5. History of hypertension. 6. Ureteral stent for reasons unknown. 7. Discuss with family when available. Job ID: [id number]
[2019-07-07] MEDS: Sodium Chloride 0.9% 1,000 ML IV SCH ×2 (02:54→15:29)
[2019-07-07] MEDS: cefTRIAXone\\ROCEPHIN 1 GM in Sodium Chloride 0.9% 100 ML IVPB SCH (05:35)
[2019-07-07 05:48] LABS: White Blood Cell (WBC) Count 17.3 thou/uL (4.8-10.8)
[2019-07-07 05:49] LABS: Hemoglobin 8.6 g/dL (12.0-16.0); Mean Corpuscular HGB CONC 31.1 g/dL (32.0-36.0); Mean Corpuscular Hemoglobin 28.5 pg (27.0-31.0); Mean Corpuscular Volume 91.5 fL (78.0-98.0); Mean Platelet Volume 9.4 fL (7.4-10.4); Platelet Count 311 thou/uL (130-400); RBC Distribution Width 18.1 % (11.5-14.5)
[2019-07-07 06:29] LABS: Anion Gap 16 mmol/L (10-20); BUN (Urea Nitrogen) 50 mg/dL (9.8-20.1); Calc. Creatinine Clearance 18 mL/min (70-130); Calcium 9.3 mg/dL (7.8-10.44); Carbon Dioxide 16 mmol/L (23-31); Chloride 118 mmol/L (98-107); Estimated GFR-MDRD 26; Glucose 214 mg/dL (83-110); Potassium 4.8 mmol/L (3.5-5.1); Sodium 145 mmol/L (136-145)
[2019-07-07] MEDS: Azithromycin 250 MG TAB PO SCH (08:42)
--- NOTE | 2019-07-07 11:25 | PDOC.HOSPP ---
- Subjective Encounter Date: 07/07/19 Encounter Time: 11:17 Subjective: THe patient is doing better. She is able to drink more liquid intake, she denies significant abdominal pain. Per the sister, her cough is much better. Surgery saw patient for osteomyelitis, plan is to amputate two toes tomorrow - Objective Vital Signs & Weight: Vital Signs (12 hours) Temp Pulse Resp BP Pulse Ox 07/07/19 07:36 98.5 F 96 12 151/69 H 99 07/07/19 04:14 98.7 F 92 16 120/62 96 Weight Admit Weight 121 lb Weight 121 lb I&O: 07/06/19 07/07/19 07/08/19 06:59 06:59 06:59 Intake Total 1200 Output Total 350 1000 Balance -350 200 Result Diagrams: 07/07/19 05:23 07/07/19 05:23 Additional Labs: Accuchecks 07/07/19 07/06/19 07/06/19 04:51 20:04 17:02 POC Glucose 223 H 261 H 410 H 07/06/19 11:22 POC Glucose 521 H Hospitalist ROS - Review of Systems Constitutional: denies: fever, chills - Medication Medications: Active Medications Generic Name Dose Route Start Last Admin Trade Name Freq PRN Reason Stop Dose Admin Acetaminophen 650 mg 07/05/19 20:53 07/06/19 08:43 Tylenol PO 650 mg Q4H PRN Administration Headache/Fever/Mild Pain (1-3) Azithromycin 250 mg 07/06/19 09:00 07/07/19 08:42 Zithromax PO 07/09/19 09:01 250 mg DAILY ROHIT Administration Ceftriaxone Sodium 1 gm/ 100 mls @ 200 mls/hr 07/06/19 06:00 07/07/19 05:35 Sodium Chloride IVPB 100 mls Q24HR ROHIT Administration Sodium Chloride 1,000 mls @ 100 mls/hr 07/05/19 22:00 07/07/19 02:54 Normal Saline 0.9% IV 1,000 mls .Q10H ROHIT Administration Insulin Human Lispro 0 units 07/06/19 12:52 07/06/19 17:40 Humalog SC 6 unit .MILD SLIDING SCALE PRN Administration Mild Correctional Scale - Exam General Appearance: NAD, awake alert Eye: PERRL, anicteric sclera ENT: normocephalic atraumatic, no oropharyngeal lesions Neck: no JVD Heart: RRR, no murmur, no gallops, no rubs Respiratory: CTAB, no wheezes, no rales, no ronchi Gastrointestinal: soft, non-distended, normal bowel sounds Gastrointestinal - other findings: RUQ and RLQ tenderness Extremities: no cyanosis, no clubbing, no edema Skin: normal turgor, no lesions, no rashes Hosp A/P - Plan Thyroid ultrasound: findings suspicious for lymphadenopathy within the neck on the right concerning for metastatic disease. CT abdomen: numerous liver masses are consistent with metastatic disease. There is right sided hydronephrosis. CT chest: 3.5 cm solid mass in right upper lobe with right hilar lymphadenopathy with metastatic disease to the mediastinal and right hilar lymph nodes and the liver. Chest X ray: right upper lung mass vs infiltrate. Foot X ray: bony destruction involving the bones on distal sides of first MTP joint highly suspicious for osteomyelitis. Bony destruction ontuft of distal phalanx of second toe also suspicious for osteomyelitis This is an 79 year old female with past medical history of Alzheimers, hypertension, GERD who was brought in to the ER for increasing weakness, found to have right lung mass with possible metastatic disease to the liver. #Right lung mass - possibly pneumonia vs cancer #RUQ pain secondary to Liver metastases #Thyroid nodule secondary to metastases - pt presented with cough and shortness of breath. CT chest showed RUL lung mass with metastases to hilar area suspicious for possible cancer - WBC slightly increased, could be from cancer or osteomyelitis or pneumonia - continue IV ceftriaxone and azithromycin - blood cultures negative, sputum culture pending - patient had CT abdomen concerning for liver metastases and thyroid ultrasound concerning for thyroid metastases. Oncology consulted, no further workup per family. Palliative care consulted as well Osteomyelitis - noted on first MTP joint and second toe of left foot -surgery consulted, plan to amputate toes tomorrow #Acute Kidney Injury - improving - creatinine down to 2.18. Continue IV fluids - quigley placed. Repeat renal US tomorrow when ANATOLY resolved - family requesting Dr. Young to be consulted Type II diabetes - blood sugar was 300-400. Starting lantus 6 units #Dysphagia -speech consulted, recommended a pureed diet # Possible UTI #Leukocytosis - urine culture growing possible strep. Sensitivities pending - continue ceftriaxone #Anemia - Hb down to 8.9 - B12/folate normal. Check ferritin level in the am #Hypertension - hold home medications Dispo: alf placement on d/c per sisters request. Case management consult Code status: full code
[2019-07-07] MEDS: HumaLOG 300 UNITS/3 ML VIAL SC PRN ×2 (15:58→21:15)
--- NOTE | 2019-07-07 16:18 | CON ---
DATE OF CONSULTATION: 07/07/2019 REASON FOR CONSULTATION: Osteomyelitis of left 1st and 2nd toes. HISTORY OF PRESENT ILLNESS: An 79-year-old who has a history of chronic smoking up until 6 months ago as well as dementia and a prior right BKA, who had been admitted previously in 2019 twice, the first time at the beginning of November and the discharge diagnoses included a right acetabular fracture which was managed medically, and a chronic hydroureter which was related to an old stent, had never been removed, and had a calcified. She refused any intervention and she was discharged. A few days later, she was readmitted, and this time, she just had general malaise and was found to be in acute renal failure superimposed on chronic, given IV fluids and had some positive blood cultures, felt to be to represent contamination of the samples. She was sent back to the [facility], and now she presents from home. She lives in [place] with one of her family members. The reason for the ER visit was generalized weakness, anorexia, and diffuse abdominal pain. The pain was moderate to intense. She had not had any urinary symptoms. No respiratory symptoms. Initial findings included BP 129/61, pulse 82, respirations 24, temperature 97.8, and O2 saturation 99. The exam was pertinent for discoloration of the left foot as noted below, irregular heart rate. The abdomen is described as nontender, which is different than the exam that we carried out at the moment. Other findings as well included white cell count 17,000, hemoglobin 10.4, and platelets 385 with 85% neutrophils. Sodium 137, creatinine 3.03, glucose 47, transaminases normal, alkaline phosphatase 173, and albumin 3.1. Urinalysis, greater than 50 wbc's. Urine culture with E faecalis. Two sets of blood culture, no growth thus far. There is a swab from the foot, but this is not going to be a helpful sample because it is just a skin surface. Currently, Ms. Marina is awake. She is confused, does not know where she is. She has moderate pain in the left foot and pain in the abdomen. No headaches. No respiratory symptoms. PAST MEDICAL HISTORY: 1. Type 2 diabetes. 2. Chronic renal insufficiency, stage 4. 3. Prior CVAs with vascular dementia. 4. Peripheral vascular disease with prior right BKA. 5. Chronic osteomyelitis of the left 1st and 2nd toe. 6. Chronic smoking. 7. She also has hydronephrosis with prior stent in the left side, which was never removed, and calcified and now she still has hydronephrosis, not clear what the indication for the original placement of the stent, has not been removed, and the urologist saw her last year for offered nephrectomy, but she declined it. 8. She also had a fracture of the acetabulum, which has healed or in the process of healing. ALLERGIES: NONE. FAMILY HISTORY: She has some family members in town, but knows other than diabetes type 2, no other history of significance. SOCIAL HISTORY: She smoked daily 2 packs a day up until 6 months ago, and she used to live in [place], but has moved to be with family members recently in this area. CURRENT MEDICATIONS: 1. Ceftriaxone. 2. Azithromycin. 3. Insulin. 4. Ondansetron. PHYSICAL EXAMINATION: VITAL SIGNS: With a T-max of 99.2, blood pressure 150/70, pulse 99, respirations 12 to 22, and O2 saturation 99. SKIN: The area of hyperpigmentation of the left 1st and 2nd toes and metatarsophalangeal skin site. There is one tiny spot with what appears to be a scab covering it, measuring about 0.2 cm, medial aspect of the left 1st MPJ skin. No drainage is noted. No erythema. There is [id number] swelling. The right BKA amputation site is intact. No other skin lesions noted. Peripheral IV access and she is voiding with an indwelling catheter. There is no lymphadenopathy. HEENT: She has temporal wasting noted. Ocular movements are conjugate. Sclerae white. Pupils are equal. Conjunctivae a little bit pale. Oral cavity with no [place] teeth remain in place. Oral mucosa is normal. NECK: Supple. No jugular venous distention. No thyromegaly. LUNGS: Symmetric air entry. No obvious crackles or wheezing. HEART: S1 and S2. Regular rate with a soft aortic murmur. ABDOMEN: Soft, not distended or tender. There is evidence of hepatomegaly. Liver edge at about 3 to 4 cm below the right coastal margin with nodularity identified. No splenomegaly. No bladder distention. EXTREMITIES: I could not feel any popliteal, dorsalis, or posterior tibialis pulses in the left lower extremity. She moves extremities equally. NEUROLOGIC: She is awake, recognizes family member, but does not know where she is, poor recollection. LABORATORY DATA: White cell count is now at 17.3, hemoglobin 8.6, platelets 311, and 89% neutrophils. Sodium 145, creatinine 2.18 with a baseline of 3.03. AST of 30, ALT 34, alkaline phosphatase 173, albumin 3.1, and globulin 4.6. Urinalysis with a greater than 50 wbc's, 21-50 rbc's. Microbiology with E faecalis in the urine culture, this was a straight catheter sample and 75 to 100,000 CFUs per mL. Two sets of blood cultures, no growth at 48 hours. On arrival because of the abdominal pain, she had abdomen and pelvis CT, which demonstrated the hydronephrosis and the old stent, but also multiple liver masses and this is a new finding. She had a chest x-ray and then a CT of chest, which demonstrated mediastinal lymphadenopathy and a 3.5 cm solid mass in the right upper lobe. ASSESSMENT: 1. Type 2 diabetes. 2. Vascular dementia. 3. Peripheral vascular disease with chronic osteomyelitis of the left 1st and 2nd toes. 4. 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 DISCUSSION: The patient will need an arterial evaluation of lower extremities prior to any intervention. I am not sure she would be a candidate for treatment of the malignancy and she still would need a tissue diagnosis, and then the management regarding amputation of the left 1st and 2nd toe would depend on the above 2 findings. If she most likely has significant arterial insufficiency, and I do not think there is a pressing need to do an amputation right now, but eventually that would be the way to go if the vascular status can be improved, not sure she would be a candidate for revascularization, though in the face of the metastatic malignancy and likely a short life span and would have to have an oncologist to see the patient and they probably would want a tissue diagnosis before making any recommendations. Job ID: [id number]
[2019-07-07] MEDS ORDERED: Diphenoxylate HCl/Atropine Tablet PO PRN (16:23)
--- NOTE | 2019-07-07 16:28 | PDOC.PALCO ---
Palliative Care Consult - Consult Details Requesting Physician: Dr Deleon Reason for Consult: goals of care, complex decision-making Family Members Present: None - Pertinent HPI 79 year old female who presented to the emergency with increasing debility as noted by decreased intake, pocketing food, and decrease in ability to ambulated. Chronic cough progressing over two years as well with increase in mucous production the past week. Records also indicate reported decrease in urine production, incontinent. Emergency room evaluation identified right upper lube lung mass with possible mets to the liver. Sister opted for patient to be admitted and options identified for medical management. Wound to left lower extremity also identified. - Social History Smoking Status: Former smoker Smoking: quit greater than 1 year Alcohol Use: none Drug Use History: none Living Situation: with family/parents (Lives at a private residence with her sister) - Medications MAR Reviewed: Yes - Allergies Allergies/Adverse Reactions: Allergies Allergy/AdvReac Type Severity Reaction Status Date / Time No Known Drug Allergies Allergy Verified 11/28/18 04:23 - Subjective Sipping of a drink, difficulity swallowing paired with coughing. Weakness, confused. Unable to obtain a reliable ROS secondary to confusion. - ROS Non Response: due to mental status Constitutional: weakness ENT: alteration in dentition, difficulty swallowing Respiratory: productive cough (Cough is productive but weak) Gastrointestinal: abdominal pain (Mild, intermittant), diarrhea - Objective Vital Signs: Vital Signs - Most Recent Temp Pulse Resp BP Pulse Ox 98.9 F 94 17 149/70 H 94 L 07/07/19 15:45 07/07/19 15:45 07/07/19 15:45 07/07/19 15:45 07/07/19 15:45 Palliative Performance Scale: 40 - Physical Exam Constitutional: confusion, emaciated, encephalitic HEENT: EOMI, poor dentition Respiratory: unlabored breathing, cough Cardiovascular: RRR Gastrointestinal: soft, positive bowel sounds, incontinent Genitourinary: quigley catheter Musculoskeletal: no clubbing, muscle wasting Deviation from normal: RIght below the knee amputation Neurology: moves all 4 limbs Skin: cap refill <2 seconds Deviation from normal: Wound to left lower extremity Psychiatric: normal mood - Problem List (1) Palliative care by specialist Code(s): Z51.5 - ENCOUNTER FOR PALLIATIVE CARE Current Visit: Yes Status: Acute (2) Severe protein-calorie malnutrition Code(s): E43 - UNSPECIFIED SEVERE PROTEIN-CALORIE MALNUTRITION Current Visit: No Status: Chronic (3) Lung mass Code(s): R91.8 - OTHER NONSPECIFIC ABNORMAL FINDING OF LUNG FIELD Current Visit: Yes Status: Acute (4) Liver mass Code(s): R16.0 - HEPATOMEGALY, NOT ELSEWHERE CLASSIFIED Current Visit: Yes Status: Acute - Plan/Recommendations Plan: Assessed Ms Marina. No family at bedside. Will follow up with to see if information visit with Hospice occurred. Consideration may be given to communicate with accepting physician at facility to provide comfort measures until Hospice care can be overlapped with stay at facility. PC RN indicates that family is opting to manage symptoms related to recent findings of lung and liver mass. *Lomotil PRN secondary to recent frequent BM's that were loose in consistency. *Please also refer to Palliative Care RN notes in note section. [50] minutes spent on this encounter with >50% of the time in counseling and coordination of care. Thank you for this very appropriate consult.
--- NOTE | 2019-07-07 16:57 | ULT ---
EXAM: US Arterial Doppler Lower Ext PROVIDED CLINICAL HISTORY: Osteomyelitis left foot. Absent left lower extremity pulses. COMPARISON: None FINDINGS: Grayscale, color-flow, Doppler evaluation left lower extremity arterial vessels is performed with 2-D imaging. Biphasic waveforms are seen in the left common femoral and profunda femoral arteries. A monophasic wa veform is seen in the proximal left superficial femoral artery. There is occlusion of the mid left superficial femoral artery without flow present. Monophasic waveforms are present in the distal left lower extremity superficial femoral and popliteal arteries with evidence of spectral broadening. Monophasic waveforms are seen within the tibial arteries as well as dorsalis pedis artery. IMPRESSION: 1. Occlusion of the mid left superficial femoral artery. 2. Severe atherosclerotic vascular disease throughout the left lower extremity arterial vessels as ev idenced by monophasic waveforms and multilevel spectral broadening of the arterial waveforms. 3. Above findings discussed with Dr. Hidalgo on 07/15/2019 at 1654 hours.
[2019-07-07] MEDS ORDERED: traMADol HCl 50 MG TAB PO PRN (18:25)
--- NOTE | 2019-07-07 19:00 | PRG ---
DATE OF SERVICE: 07/07/2019 Shabana Marina is an 79-year-old female, demented yesterday. She has a diabetic infection left great toe and second toe. X-rays revealed osteomyelitis. She has radiological evidence by chest x-ray. CAT scan of hepatic mets from lung primary. The patient's sister is in the room with her as I interview the patient. The patient has decided assisted living placement and hospice status, DNR status. I have discussed with sister the patient's left foot infection and given the options of palliative care without surgery versus operative intervention. Sister has appropriately requested amputation of left first and second toes as it is unknown how long the patient will live with her metastatic disease. We will plan n.p.o. after midnight and amputation of left great second toe tomorrow morning. Wound VAC application. The patient can be discharged home postoperatively tomorrow on oral antibiotics assisted care residence is defined. The patient should be made DNR by the admitting physician. Job ID: [id number]
[2019-07-07] MEDS: Insulin Glargine 6 UNITS in Pre-Filled Syringe 1 EACH SC SCH (21:14)
[2019-07-07] MEDS: Acetaminophen 500 MG TAB PO PRN (21:25)
[2019-07-08] MEDS: Sodium Chloride 0.9% 1,000 ML IV SCH ×4 (03:58→20:56)
[2019-07-08] MEDS: cefTRIAXone\\ROCEPHIN 1 GM in Sodium Chloride 0.9% 100 ML IVPB SCH (05:11)
[2019-07-08] MEDS: Azithromycin 250 MG TAB PO SCH (07:45)
[2019-07-08] MEDS ORDERED: Lidocaine 1% PF 5 ML VIAL ONE (10:17)
[2019-07-08] MEDS ORDERED: PROPOFOL 200 MG/20 ML VIAL ONE (10:17)
[2019-07-08 11:43] LABS: Anion Gap 16 mmol/L (10-20); BUN (Urea Nitrogen) 39 mg/dL (9.8-20.1); Calc. Creatinine Clearance 20 mL/min (70-130); Calcium 9.1 mg/dL (7.8-10.44); Carbon Dioxide 13 mmol/L (23-31); Chloride 123 mmol/L (98-107); Estimated GFR-MDRD 30; Glucose 144 mg/dL (83-110); Potassium 4.9 mmol/L (3.5-5.1); Sodium 147 mmol/L (136-145)
[2019-07-08 12:16] LABS: Hemoglobin 9.3 g/dL (12.0-16.0); Mean Corpuscular HGB CONC 33.4 g/dL (32.0-36.0); Mean Corpuscular Hemoglobin 30.1 pg (27.0-31.0); Mean Corpuscular Volume 89.9 fL (78.0-98.0); Mean Platelet Volume 9.7 fL (7.4-10.4); Platelet Count 231 thou/uL (130-400); RBC Distribution Width 18.3 % (11.5-14.5); White Blood Cell (WBC) Count 17.7 thou/uL (4.8-10.8)
[2019-07-08 12:34] LABS: Anisocytosis SLIGHT = 6-15 cells (100X) (0-5/hpf); Band 1 % (5-11); Lymphocytes 8 % (21-51); MDiff Complete? YES; Monocytes 8 % (0-10); Neutrophil 83 % (42-75); Platelet Clumps SLIGHT; Platelet Morphology Comment Appears Adequate; Polychromasia SLIGHT = 2-3 cells (100X) (0-2/hpf)
--- NOTE | 2019-07-08 16:49 | PDOC.FMACP ---
Advance Care Planning - Note Summary: Advanced Care Planning was discussed. The diagnosis, prognosis and goals of care were discussed. Appropriate forms and documentation to accomplish the goals of care were discussed. All questions were answered. The Palliative Care Team will be engaged to assist with completion of any outstanding forms that are needed. Discussed with patient's sister and son about goals of care. They are agreeable to making her DNR/DNI in light of stage IV cancer that is not amenable to treatment and poor prognosis overall Time Spent (mins): 30
--- NOTE | 2019-07-08 16:50 | PDOC.HOSPP ---
- Subjective Encounter Date: 07/08/19 Encounter Time: 13:00 Subjective: F/u : metastatic cancer The patient denies abd pain, nausea, vomiting. She has poor appetite. Sister wants to proceed with amputation of toes. She may be at impaired risk of wound healing which sister understands but to prevent any infection from spreading she would like it to be amputated and then send to [facility] facility. Her cough has improved Also made DNR today - Objective Vital Signs & Weight: Vital Signs (12 hours) Temp Pulse Resp BP BP Pulse Ox 07/08/19 08:00 97 07/08/19 07:37 98.1 F 84 18 171/78 H 97 07/08/19 04:59 97.8 F 64 20 125/68 07/08/19 04:58 98.9 F 85 85 H 142/68 H 97 Weight Admit Weight 121 lb Weight 121 lb I&O: 07/07/19 07/08/19 07/09/19 06:59 06:59 06:59 Intake Total 1200 1250 Output Total 1000 1750 Balance 200 -500 Result Diagrams: 07/08/19 12:00 07/08/19 10:44 Additional Labs: Accuchecks 07/08/19 07/08/19 07/07/19 11:08 04:57 21:05 POC Glucose 151 H 189 H 426 H Hospitalist ROS - Review of Systems Constitutional: denies: fever, chills Respiratory: denies: cough - Medication Medications: Active Medications Generic Name Dose Route Start Last Admin Trade Name Freq PRN Reason Stop Dose Admin Acetaminophen 1,000 mg 07/07/19 18:25 07/07/19 21:25 Tylenol PO 1,000 mg Q6H PRN Administration Moderate to Severe Pain (6-10) Azithromycin 250 mg 07/06/19 09:00 07/08/19 07:45 Zithromax PO 07/09/19 09:01 250 mg DAILY ROHIT Administration Ceftriaxone Sodium 1 gm/ 100 mls @ 200 mls/hr 07/06/19 06:00 07/08/19 05:11 Sodium Chloride IVPB 100 mls Q24HR ROHIT Administration Sodium Chloride 1,000 mls @ 100 mls/hr 07/05/19 22:00 07/08/19 10:45 Normal Saline 0.9% IV Not Given .Q10H ROHIT Insulin Glargine 6 units/ 0.06 mls @ 0 mls/hr 07/07/19 21:00 07/07/19 21:14 Miscellaneous Medication SC 0.06 mls HS ROHIT Administration Insulin Human Lispro 0 units 07/06/19 12:52 07/07/19 21:15 Humalog SC 6 unit .MILD SLIDING SCALE PRN Administration Mild Correctional Scale - Exam General Appearance: NAD, awake alert Eye: PERRL, anicteric sclera ENT: normocephalic atraumatic, no oropharyngeal lesions Neck: no JVD Heart: RRR, no murmur, no gallops, no rubs Respiratory: CTAB, no wheezes, no rales, no ronchi Gastrointestinal: soft Gastrointestinal - other findings: RUQ and RLQ tenderness Extremities: no cyanosis, no clubbing, no edema Extremities - other findings: Left first and second toe with gangrene, poor pulses Skin: normal turgor, no lesions, no rashes Hosp A/P - Plan Thyroid ultrasound: findings suspicious for lymphadenopathy within the neck on the right concerning for metastatic disease. CT abdomen: numerous liver masses are consistent with metastatic disease. There is right sided hydronephrosis. CT chest: 3.5 cm solid mass in right upper lobe with right hilar lymphadenopathy with metastatic disease to the mediastinal and right hilar lymph nodes and the liver. Chest X ray: right upper lung mass vs infiltrate. Foot X ray: bony destruction involving the bones on distal sides of first MTP joint highly suspicious for osteomyelitis. Bony destruction ontuft of distal phalanx of second toe also suspicious for osteomyelitis Lower extremity arterial ultrasound: occlusion of mid left superficial femoral artery. Severe atherosclerotic vascular disease throughout the left lower extremity arterial vessels This is an 79 year old female with past medical history of Alzheimers, hypertension, GERD who was brought in to the ER for increasing weakness, found to have right lung mass with possible metastatic disease to the liver. #Right lung mass - possibly cancer vs pneumonia #RUQ pain secondary to Liver metastases #Thyroid nodule secondary to metastases - pt presented with cough and shortness of breath. CT chest showed RUL lung mass with metastases to hilar area suspicious for possible cancer - WBC 17.7, likely from cancer vs infection - s/p IV ceftriaxone and azithromycin for three days. Will switch to oral augmentin/azithromycin given cough has improved with antibiotics - blood cultures negative, sputum culture pending - patient had CT abdomen concerning for liver metastases and thyroid ultrasound concerning for thyroid metastases. Oncology consulted, no further workup per family. Palliative care consulted as well. Family interested in SNF after amputation Osteomyelitis - noted on first MTP joint and second toe of left foot - patient will get amputation of first and second toe today 07/08 E faecalis UTI - will treat with augmentin Peripheral arterial disease with occlusion of left SFA - noted on ultrasound - start atorvastatin - aspirin starting tomorrow #Acute Kidney Injury - improving - creatinine down to 1.93 with IV fluids - quigley placed. Repeat renal US today - family requesting Dr. Young to be consulted Type II diabetes - improved. Blood sugar 150's. Continue lantus 6 units #Dysphagia -speech consulted, continue pureed diet #Anemia - Hb down to 8.9 - B12/folate normal. Check ferritin level in the am #Hypertension - held home medications, will resume if BP increases Dispo: jail placement on d/c per sisters request. Possibly d/c tomorrow on oral augmentin Code status: full code
[2019-07-08] MEDS ORDERED: Lidocaine 2% w/Epinephrine 1:200K 20 ML VIAL ONE (17:50)
[2019-07-08] MEDS ORDERED: Fentanyl 100 MCG/2 ML VIAL ONE (18:25)
[2019-07-08] MEDS ORDERED: Promethazine HCl 25 MG/ML VIAL SLOW IVP PRN (19:09)
[2019-07-08] MEDS ORDERED: Promethazine HCl 25 MG/ML VIAL IM PRN (19:09)
[2019-07-08] MEDS: Atorvastatin Calcium 20 MG TAB PO SCH (20:54)
[2019-07-08] MEDS: Amoxicillin/Potassium Clav 875 MG TAB PO SCH (20:55)
[2019-07-08] MEDS: Insulin Glargine 6 UNITS in Pre-Filled Syringe 1 EACH SC SCH (20:56)
--- NOTE | 2019-07-08 21:02 | ULT ---
Renal sonogram HISTORY: Hydronephrosis. COMPARISON: CT 07/05/2019. FINDINGS: Right kidney measures up to 9.1 cm with marked thinning of the cortex and diffuse increase in echogenicity. No hydronephrosis. Left kidney shows no hydronephrosis. Cyst at the inferior pole is 1.0 cm. Urinary bladder is decompressed by Amos catheter. IMPRESSION: Interval resolution of right hydronephrosis. Chronic-type findings are stable.
--- NOTE | 2019-07-09 | OP ---
DATE OF PROCEDURE: 07/07/2019 PREOPERATIVE DIAGNOSES: Dementia, hepatic metastasis, probably lung cancer, peripheral arterial disease, right njsel-mjw-ynfj amputation status, diabetic infection, left foot involving the first and second toes and metatarsals, DNR status. POSTOPERATIVE DIAGNOSES: Dementia, hepatic metastasis, probably lung cancer, peripheral arterial disease, right mcbun-asd-kqnr amputation status, diabetic infection, left foot involving the first and second toes and metatarsals, DNR status. PROCEDURE PERFORMED: Amputation of left first and second toes and metatarsals, wound left open for healing by secondary intention. Wound Care arrived to place wound VAC. ANESTHESIA: Ankle block, TIVA. DESCRIPTION OF PROCEDURE: The patient was taken to the operating room where under intravenous sedation and ankle block, left lower extremity was prepared with Betadine and draped in routine fashion. Incision was made for an amputation of left first and second toes and metatarsals. resecting the infected skin and necrotic tissue as necessary. There was adequate bleeding in the soft tissues despite suggestion that she has SFA disease. Good hemostasis was obtained with cautery. Metatarsals transected with a bone cutter and resected proximally with a rongeur. Connective tissue debrided. Hemostasis obtained. Wound irrigated. There is purulent discharge from the toes as incision was made around them. Wound Care Team arrived to place a wound VAC. The patient tolerated the procedure well. Job ID: [id number]
[2019-07-09] MEDS: Sodium Chloride 0.9% 1,000 ML IV SCH (05:29)
[2019-07-09] MEDS: HumaLOG 300 UNITS/3 ML VIAL SC PRN ×3 (05:30→17:15)
[2019-07-09 07:29] LABS: Anion Gap 17 mmol/L (10-20); BUN (Urea Nitrogen) 36 mg/dL (9.8-20.1); Calc. Creatinine Clearance 21 mL/min (70-130); Calcium 8.3 mg/dL (7.8-10.44); Carbon Dioxide 10 mmol/L (23-31); Chloride 124 mmol/L (98-107); Estimated GFR-MDRD 32; Glucose 167 mg/dL (83-110); Potassium 5.1 mmol/L (3.5-5.1); Sodium 146 mmol/L (136-145)
[2019-07-09] MEDS: Amoxicillin/Potassium Clav 875 MG TAB PO SCH ×2 (08:23→20:12)
[2019-07-09] MEDS: Azithromycin 250 MG TAB PO SCH (08:23)
[2019-07-09] MEDS: Aspirin 81 mg Enteric Coated Tablet PO SCH (08:23)
[2019-07-09 09:25] LABS: Hemoglobin 8.7 g/dL (12.0-16.0); Mean Corpuscular HGB CONC 33.2 g/dL (32.0-36.0); Mean Corpuscular Hemoglobin 30.2 pg (27.0-31.0); Mean Corpuscular Volume 91.1 fL (78.0-98.0); Mean Platelet Volume 8.7 fL (7.4-10.4); Platelet Count 292 thou/uL (130-400); Red Blood Cell (RBC) Count 2.87 mill/uL (4.20-5.40); White Blood Cell (WBC) Count 15.5 thou/uL (4.8-10.8)
--- NOTE | 2019-07-09 10:51 | PRG ---
DATE OF SERVICE: 07/09/2019 SUBJECTIVE: The patient is seen and examined at bedside. The patient's daughter is present in the room during my visit. The patient has some dementia, so her responses are quite limited and not adequate. The patient knows that she is in the hospital. Her appetite is fair. She had her amputation done by Dr. Pfeiffer. OBJECTIVE: VITAL SIGNS: Blood pressure is 161/70, pulse is 85, temperature is 99.0, respirations 18, O2 saturation is 98% on room air. HEENT: Her head is atraumatic and normocephalic. Eyes are PERRLA. Sclerae are nonicteric. Oral mucosa is moist. NECK: Supple. LUNGS: Clear. HEART: S1, S2 normal. No S3. No S4. ABDOMEN: Soft, nontender. Bowel sounds active. EXTREMITIES: Right griat-sof-ehaj amputee status. Left foot is wrapped. LABORATORY DATA: Labs showed white count of 15.5, hemoglobin of 8.7, hematocrit 26.1, platelet count is 292,000. Sodium is 146, potassium 5.1, chloride 124, BUN 36, creatinine 1.84, ferritin is 2061.27, calcium 8.3. Microbiology, no new findings. IMPRESSION: 1. Right lung mass, possibly cancer versus pneumonia. 2. Liver metastasis. 3. 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 4. Osteomyelitis, status post amputation of the first and second toe yesterday by Dr. Pfeiffer. 5. Enterococcus faecalis urinary tract infection, on Augmentin. 6. Peripheral arterial disease with occlusion of left SFA. 7. Acute kidney injury improved. 8. Hypernatremia. 9. Diabetes mellitus type 2. 10. Anemia. 11. Hyperferritinemia. 12. Hypertension. PLAN: I am going to restart her home medications and we will continue her Augmentin. Continue her wound care. Continue PT and OT. I am going to switch her IV fluids to D5 water at 75 mL/hour and as soon as she is approved by residential facility for PT and OT, she will be transferred. Job ID: [id number]
[2019-07-09] MEDS: Dextrose 5% in Water 1,000 ML IV SCH (11:02)
[2019-07-09] MEDS: Atorvastatin Calcium 20 MG TAB PO SCH (20:12)
[2019-07-09] MEDS: Acetaminophen 500 MG TAB PO PRN (20:12)
[2019-07-09] MEDS: hydrALAZINE 25 MG TAB PO SCH (20:12)
[2019-07-09] MEDS: Insulin Glargine 6 UNITS in Pre-Filled Syringe 1 EACH SC SCH (20:36)
[2019-07-10] MEDS: Dextrose 5% in Water 1,000 ML IV SCH (00:32)
[2019-07-10] MEDS: HumaLOG 300 UNITS/3 ML VIAL SC PRN ×2 (06:08→16:13)
[2019-07-10 07:54] LABS: Hemoglobin 8.8 g/dL (12.0-16.0); Mean Corpuscular HGB CONC 30.7 g/dL (32.0-36.0); Mean Corpuscular Hemoglobin 28.1 pg (27.0-31.0); Mean Corpuscular Volume 91.5 fL (78.0-98.0); Mean Platelet Volume 8.7 fL (7.4-10.4); Platelet Count 317 thou/uL (130-400); RBC Distribution Width 18.1 % (11.5-14.5); Red Blood Cell (RBC) Count 3.13 mill/uL (4.20-5.40)
[2019-07-10 08:16] LABS: Anion Gap 14 mmol/L (10-20); BUN (Urea Nitrogen) 30 mg/dL (9.8-20.1); Calc. Creatinine Clearance 21 mL/min (70-130); Calcium 8.9 mg/dL (7.8-10.44); Carbon Dioxide 14 mmol/L (23-31); Chloride 116 mmol/L (98-107); Estimated GFR-MDRD 32; Glucose 222 mg/dL (83-110); Potassium 4.1 mmol/L (3.5-5.1); Sodium 140 mmol/L (136-145)
[2019-07-10 08:27] LABS: Hypersemented Neutrophil SLIGHT; Hypochromia SLIGHT = 6-15 cells (100X) (0-5/hpf); Lymphocytes 6 % (21-51); MDiff Complete? YES; Monocytes 5 % (0-10); Neutrophil 88 % (42-75); Platelet Morphology Comment Appears Adequate; Polychromasia SLIGHT = 2-3 cells (100X) (0-2/hpf); Vacuoles SLIGHT
[2019-07-10] MEDS: hydrALAZINE 25 MG TAB PO SCH ×2 (08:28→23:14)
[2019-07-10] MEDS: Aspirin 81 mg Enteric Coated Tablet PO SCH (08:28)
[2019-07-10] MEDS: Amoxicillin/Potassium Clav 875 MG TAB PO SCH ×2 (08:28→20:09)
[2019-07-10] MEDS: Metoprolol Tartrate 50 MG TAB PO SCH (08:29)
[2019-07-10] MEDS ORDERED: Insulin Glargine 6 UNITS in Pre-Filled Syringe 1 EACH SC SCH (09:15)
--- NOTE | 2019-07-10 12:13 | PRG ---
DATE OF SERVICE: 07/10/2019 SUBJECTIVE: The patient is seen and examined at the bedside. She does not have much complaints to offer. She had good night. There were no any unexpected events overnight. OBJECTIVE: VITAL SIGNS: Blood pressure is 154/64, pulse is 89, her maximal temperature is 100, respiratory rate is 16, and O2 saturation is 99% on room air. GENERAL: She is not in any distress during my visit. HEENT: Her eyes are PERRLA. Sclerae are nonicteric. Oral mucosa is moist. NECK: Supple. LUNGS: Clear. HEART: S1 and S2 normal. ABDOMEN: Soft and nontender. EXTREMITIES: No clubbing, cyanosis, or edema. NEUROLOGIC: She shows some dementia, but she is able to move her all 4 extremities. There are no any motor deficits. LABORATORY DATA: Labs showed white count of 16.0, hemoglobin of 8.8, hematocrit 28.7, platelet count 317. Sodium of 140, potassium 4.1, chloride 116, CO2 of 14, BUN 30, creatinine 1.82, glycemia is ranging from 201 to 326, and calcium is 8.9. IMPRESSION: 1. Right lung mass, possibly cancer. 2. Right lung pneumonia. 3. Liver metastasis. 4. 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 5. Osteomyelitis, status post amputation of the first and second toe by Dr. Pfeiffer. 6. Enterococcus faecalis urinary tract infection, switched to Augmentin. 7. Peripheral arterial disease with occlusion of left superficial femoral artery. 8. Hypernatremia and hyperchloremia, improved. 9. Acute kidney injury, improved. 10. Diabetes mellitus type 2, not well controlled. 11. Anemia. 12. Hyperferritinemia. 13. Hypertension. PLAN: To go up on her hydralazine to 50 mg twice a day. She will continue on D5 water at 50 mL/h. We will add additional 6 units of insulin Lantus in the morning along with 6 units at night since her glycemia is running high. She will continue her Augmentin and she is set up for a new transfer and as soon as this is arranged, she will be moved. We will continue PT and OT for now and we will continue wound care. Job ID: [id number]
[2019-07-10] MEDS: Atorvastatin Calcium 20 MG TAB PO SCH (20:09)
[2019-07-10] MEDS: Insulin Glargine 6 UNITS in Pre-Filled Syringe 1 EACH SC SCH (23:14)
[2019-07-10] MEDS: Dextrose 5 %-0.45 % NaCl 1,000 ML IV SCH (23:19)
[2019-07-11] MEDS: Diltiazem HCl 125 MG, Admixture Fee 1 EACH in Sodium Chloride 0.9% 100 ML IVPB SCH ×2 (01:55→14:12)
[2019-07-11 05:09] LABS: Anion Gap 17 mmol/L (10-20); BUN (Urea Nitrogen) 38 mg/dL (9.8-20.1); Calc. Creatinine Clearance 14 mL/min (70-130); Calcium 8.8 mg/dL (7.8-10.44); Carbon Dioxide 12 mmol/L (23-31); Chloride 114 mmol/L (98-107); Estimated GFR-MDRD 20; Glucose 268 mg/dL (83-110); Potassium 4.8 mmol/L (3.5-5.1); Sodium 138 mmol/L (136-145)
[2019-07-11 05:30] LABS: Band 1 % (5-11); Hemoglobin 8.8 g/dL (12.0-16.0); Lymphocytes 2 % (21-51); MDiff Complete? YES; Mean Corpuscular HGB CONC 31.4 g/dL (32.0-36.0); Mean Corpuscular Hemoglobin 29.1 pg (27.0-31.0); Mean Corpuscular Volume 92.6 fL (78.0-98.0); Mean Platelet Volume 9.1 fL (7.4-10.4); Metamyelocyte 1 % (0-0); Monocytes 6 % (0-10); Neutrophil 90 % (42-75); Platelet Count 304 thou/uL (130-400); Platelet Morphology Comment Appears Adequate; RBC Distribution Width 18.1 % (11.5-14.5); Red Blood Cell (RBC) Count 3.03 mill/uL (4.20-5.40); White Blood Cell (WBC) Count 22.3 thou/uL (4.8-10.8)
[2019-07-11] MEDS ORDERED: Digoxin 0.5 MG/2 ML AMP SLOW IVP SCH (05:45)
[2019-07-11] MEDS: HumaLOG 300 UNITS/3 ML VIAL SC PRN ×3 (06:14→17:06)
[2019-07-11] MEDS ORDERED: Insulin Glargine 6 UNITS in Pre-Filled Syringe 1 EACH SC SCH (09:00)
--- NOTE | 2019-07-11 09:07 | RAD ---
CHEST 1 VIEW PORTABLE: Date: 07/11/2019 HISTORY: Possible pneumonia follow-up. COMPARISON: 07/05/2019. FINDINGS: Approximately 3.1 cm diameter poorly circumscribed mass in the right apex and upper lobe. There are a lso some nodular mass changes involving the right and left superior mediastinum and paratracheal lenore on concerning for extensive adenopathy. Scattered bilateral interstitial and linear opacity changes i n the perihilar regions with some blunting of the left costophrenic angle, evidence for some vascular congestion. IMPRESSION: Evidence for right upper lobe lung mass and superior mediastinal adenopathy. Interstitial and linear perihilar opacities, evidence for some vascular congestion. Probable left pleural effusion. CODE T. POS: TPC
[2019-07-11] MEDS: hydrALAZINE 25 MG TAB PO SCH ×2 (10:15→20:38)
[2019-07-11] MEDS: Amoxicillin/Potassium Clav 875 MG TAB PO SCH ×2 (10:16→20:37)
[2019-07-11] MEDS: Aspirin 81 mg Enteric Coated Tablet PO SCH (10:16)
[2019-07-11] MEDS: Metoprolol Tartrate 50 MG TAB PO SCH (10:16)
[2019-07-11] MEDS: Dextrose 5 %-0.45 % NaCl 1,000 ML IV SCH (15:10)
--- NOTE | 2019-07-11 16:27 | EKG ---
Test Reason : Blood Pressure : / mmHG Vent. Rate : 167 BPM Atrial Rate : 170 BPM P-R Int : 000 ms QRS Dur : 062 ms QT Int : 264 ms P-R-T Axes : 000 047 239 degrees QTc Int : 440 ms Atrial fibrillation with rapid ventricular response Abnormal ECG When compared with ECG of 27-NOV-2018 22:04, (Unconfirmed) Atrial fibrillation has replaced Sinus rhythm Vent. rate has increased BY [address] now depressed in Lateral leads Inverted T waves have replaced nonspecific T wave abnormality in Inferior leads T wave inversion now evident in Anterolateral leads Confirmed by DR. Dane GUNN ([id number]) on 07/11/2019 4:26:58 PM Referred By: NANDINI Confirmed By:DR. Dane GUNN
--- NOTE | 2019-07-11 17:27 | PRG ---
DATE OF SERVICE: 07/11/2019 SUBJECTIVE: Shabana Marina's wound VAC was removed today. Her wound looks very good. It looks much better. There is no evidence of cellulitis. No edema. The patient has baseline dementia. She is afebrile. Cultures foot enterococcus and Serratia. ASSESSMENT AND PLAN: The patient doing well. We would recommend discharge home on hospice with wound care. She can have a wound VAC or normal saline wet-to-dry dressing, whichever is appropriate. She can be sent home on an Augmentin and Cipro or Augmentin and Bactrim for 10 days. I would recommend follow up in my office in about 2 weeks to 3 weeks. At this point, I will see her as needed this hospitalization, please call if necessary. She is ready for discharge to hospice care. Job ID: [id number]
[2019-07-11] MEDS: Atorvastatin Calcium 20 MG TAB PO SCH (20:40)
--- NOTE | 2019-07-11 20:55 | PDOC.HOSPP ---
- Subjective Encounter Date: 07/11/19 Encounter Time: 13:20 Subjective: Confused at baseline. Overall quite weak from her illness. Overnight developed afib with RVR placed on diltiazem drip. - Objective Vital Signs & Weight: Vital Signs (12 hours) Temp Pulse Resp BP Pulse Ox 07/11/19 19:32 98.3 F 106 H 18 105/59 L 100 07/11/19 15:20 97.8 F 95 18 112/55 L 98 07/11/19 11:12 97.3 F L 106 H 16 112/54 L 97 Weight Admit Weight 121 lb Weight 121 lb I&O: 07/10/19 07/11/19 07/12/19 06:59 06:59 06:59 Intake Total 1460 1593 Output Total 600 175 Balance 860 1418 Result Diagrams: 07/11/19 04:37 07/11/19 04:37 Additional Labs: Accuchecks 07/11/19 07/11/19 07/11/19 16:46 11:18 06:14 POC Glucose 479 H 418 H 307 H 07/10/19 07/10/19 21:51 06:07 POC Glucose 229 H 289 H Hospitalist ROS - Review of Systems All other systems reviewed; all pertinent +/- noted in HPI/Subj - Medication Medications: Active Medications Generic Name Dose Route Start Last Admin Trade Name Freq PRN Reason Stop Dose Admin Acetaminophen 1,000 mg 07/07/19 18:25 07/09/19 20:12 Tylenol PO 1,000 mg Q6H PRN Administration Moderate to Severe Pain (6-10) Amoxicillin/Clavulanate Potassium 875 mg 07/08/19 21:00 07/11/19 10:16 Augmentin PO 875 mg Q12HR ROHIT Administration Aspirin 81 mg 07/09/19 09:00 07/11/19 10:16 Ecotrin PO 81 mg DAILY ROHIT Administration Atorvastatin Calcium 20 mg 07/08/19 21:00 07/10/19 20:09 Lipitor PO 20 mg HS ROHIT Administration Hydralazine HCl 50 mg 07/10/19 21:00 07/11/19 10:15 Apresoline PO 50 mg BID ROHIT Administration Diltiazem HCl 125 mg/ 125 mls @ 10 mls/hr 07/11/19 01:45 07/11/19 14:12 Miscellaneous Medication 1 IVPB 125 mls each/ Sodium Chloride INF ROHIT Administration Protocol Metoprolol Tartrate 50 mg 07/10/19 09:00 07/11/19 10:16 Lopressor PO 50 mg DAILY ROHIT Administration Tramadol HCl 50 mg 07/07/19 18:25 07/11/19 08:30 Ultram PO 50 mg Q12H PRN Administration Pain - Exam General Appearance: NAD, ill appearing Eye: PERRL ENT: normocephalic atraumatic, no oropharyngeal lesions, dry oral mucosa Neck: supple, no JVD Heart: no rubs, normal peripheral pulses, irregular Respiratory: normal chest expansion, normal percussion, rhonchi, tachypneic Gastrointestinal: soft, non-tender, non-distended Extremities: no clubbing, 1+ LE edema Musculoskeletal: diffuse muscle atrophy Psychiatric: not oriented, lethargic Hosp A/P - Plan IMPRESSION Right lung mass, likely metastatic cancer Afib with RVR Liver metastasis Osteomyelitis, status post amputation of the first and second toe Enterococcus faecalis urinary tract infection Peripheral artery disease with occlusion of the left superficial femoral artery Type 2 diabetes mellitus, uncontrolled Anemia Hypertension PLAN Appreciate surgical recommendations continue wound care We will increase Lantus to 12 units at bedtime and a.m., and increase to moderate dose sliding scale We will continue Augmentin, although her white count count seems to be going up Continue diltiazem drip for A. fib RVR, she is likely a very poor candidate for any kind of anticoagulation Continue her other medications from home Disposition: Had a discussion with family regarding her overall goals of care, they want to send her to a long-term nursing facility with a transition to hospice
[2019-07-11] MEDS: Insulin Glargine 12 UNITS in Pre-Filled Syringe 1 EACH SC SCH (21:55)
[2019-07-12] MEDS: Diltiazem HCl 125 MG, Admixture Fee 1 EACH in Sodium Chloride 0.9% 100 ML IVPB SCH ×2 (03:58→17:27)
[2019-07-12 05:14] LABS: Anion Gap 16 mmol/L (10-20); BUN (Urea Nitrogen) 48 mg/dL (9.8-20.1); Calc. Creatinine Clearance 12 mL/min (70-130); Calcium 8.7 mg/dL (7.8-10.44); Carbon Dioxide 11 mmol/L (23-31); Chloride 117 mmol/L (98-107); Estimated GFR-MDRD 17; Glucose 235 mg/dL (83-110); Potassium 4.4 mmol/L (3.5-5.1); Sodium 140 mmol/L (136-145)
[2019-07-12 05:16] LABS: Band 2 % (5-11); Hemoglobin 8.3 g/dL (12.0-16.0); Hypochromia SLIGHT = 6-15 cells (100X) (0-5/hpf); Lymphocytes 1 % (21-51); MDiff Complete? YES; Mean Corpuscular Hemoglobin 29.5 pg (27.0-31.0); Mean Corpuscular Volume 92.3 fL (78.0-98.0); Mean Platelet Volume 9.2 fL (7.4-10.4); Monocytes 3 % (0-10); Neutrophil 94 % (42-75); Nucleated RBC 1 % (0); Platelet Count 311 thou/uL (130-400); Platelet Morphology Comment Appears Adequate; RBC Distribution Width 18.3 % (11.5-14.5); White Blood Cell (WBC) Count 20.5 thou/uL (4.8-10.8)
[2019-07-12] MEDS: HumaLOG 300 UNITS/3 ML VIAL SC PRN ×2 (06:39→17:28)
[2019-07-12] MEDS: Aspirin 81 mg Enteric Coated Tablet PO SCH (09:40)
[2019-07-12] MEDS: Insulin Glargine 12 UNITS in Pre-Filled Syringe 1 EACH SC SCH ×2 (09:41→21:08)
[2019-07-12] MEDS: Amoxicillin/Potassium Clav 875 MG TAB PO SCH ×2 (09:41→20:54)
[2019-07-12] MEDS: Metoprolol Tartrate 50 MG TAB PO SCH (09:41)
[2019-07-12] MEDS: hydrALAZINE 25 MG TAB PO SCH ×2 (09:55→20:54)
[2019-07-12] MEDS: Acetaminophen 500 MG TAB PO PRN (11:10)
--- NOTE | 2019-07-12 16:11 | PDOC.HOSPP ---
- Subjective Encounter Date: 07/12/19 Encounter Time: 13:10 Subjective: Continues on cardizem drip. No overnight events reported. She denies fever, chills, cp, sob, or other associated sxs. - Objective Vital Signs & Weight: Vital Signs (12 hours) Temp Pulse Resp BP BP Pulse Ox 07/12/19 11:31 97.7 F 118 H 20 100/53 L 98 07/12/19 09:55 135 H 103/53 L 07/12/19 08:30 98 07/12/19 08:00 122 H 20 109/62 98 Weight Admit Weight 121 lb Weight 121 lb I&O: 07/11/19 07/12/19 07/13/19 06:59 06:59 06:59 Intake Total 1593 360 Output Total 175 Balance 1418 360 Result Diagrams: 07/12/19 04:37 07/12/19 04:37 Additional Labs: Accuchecks 07/12/19 07/12/19 07/11/19 10:22 06:42 20:40 POC Glucose 169 H 223 H 370 H 07/11/19 16:46 POC Glucose 479 H Hospitalist ROS - Review of Systems All other systems reviewed; all pertinent +/- noted in HPI/Subj - Medication Medications: Active Medications Generic Name Dose Route Start Last Admin Trade Name Freq PRN Reason Stop Dose Admin Acetaminophen 1,000 mg 07/07/19 18:25 07/12/19 11:10 Tylenol PO 1,000 mg Q6H PRN Administration Moderate to Severe Pain (6-10) Amoxicillin/Clavulanate Potassium 875 mg 07/08/19 21:00 07/12/19 09:41 Augmentin PO 875 mg Q12HR ROHIT Administration Aspirin 81 mg 07/09/19 09:00 07/12/19 09:40 Ecotrin PO 81 mg DAILY ROHIT Administration Atorvastatin Calcium 20 mg 07/08/19 21:00 07/11/19 20:40 Lipitor PO 20 mg HS ROHIT Administration Hydralazine HCl 50 mg 07/10/19 21:00 07/12/19 09:55 Apresoline PO Not Given BID ROHIT Diltiazem HCl 125 mg/ 125 mls @ 10 mls/hr 07/11/19 01:45 07/12/19 03:58 Miscellaneous Medication 1 IVPB 125 mls each/ Sodium Chloride INF ROHIT Administration Protocol Insulin Glargine 12 units/ 0.12 mls @ 0 mls/hr 07/11/19 21:00 07/11/19 21:55 Miscellaneous Medication SC 0.12 mls HS ROHIT Administration Insulin Glargine 12 units/ 0.12 mls @ 0 mls/hr 07/12/19 09:00 07/12/19 09:41 Miscellaneous Medication SC 0.12 mls QAM ROHIT Administration Insulin Human Lispro 0 units 07/11/19 20:54 07/12/19 06:39 Humalog SC 4 unit .MODERATE SLIDING SC PRN Administration MODERATE SLIDING SCALE Protocol Metoprolol Tartrate 50 mg 07/10/19 09:00 07/12/19 09:41 Lopressor PO 50 mg DAILY ROHIT Administration Tramadol HCl 50 mg 07/07/19 18:25 07/11/19 08:30 Ultram PO 50 mg Q12H PRN Administration Pain - Exam General Appearance: ill appearing General - other findings: frail, thin Eye: PERRL, anicteric sclera ENT: moist mucosa Neck: supple, symmetric, no JVD Heart: no murmur, no gallops, no rubs, irregular Respiratory: no wheezes, no rales, normal chest expansion Gastrointestinal: soft, non-tender, non-distended, normal bowel sounds Extremities: 1+ LE edema Musculoskeletal: generalized weakness, diffuse muscle atrophy Psychiatric: normal behavior, oriented to person Hosp A/P - Plan IMPRESSION Right lung mass, likely metastatic cancer Afib with RVR Liver metastasis Osteomyelitis, status post amputation of the first and second toe Enterococcus faecalis urinary tract infection Peripheral artery disease with occlusion of the left superficial femoral artery Type 2 diabetes mellitus, uncontrolled Anemia Hypertension PLAN Appreciate surgical recommendations continue wound care Continue Lantus to 12 units at bedtime and a.m., and moderate dose sliding scale We will continue Augmentin Continue diltiazem drip for A. fib RVR, she is likely a very poor candidate for any kind of anticoagulation Consult cardio for help weaning off cardizem drip Continue her other medications from home Disposition: Had a discussion with family regarding her overall goals of care, they want to send her to a long-term nursing facility with a transition to hospice. Palliative care to reintroduce goals of care tomorrow.
--- NOTE | 2019-07-12 17:18 | CON ---
DATE OF CONSULTATION: 07/12/2019 REASON FOR CONSULTATION: Atrial fibrillation. HISTORY OF PRESENT ILLNESS: Ms. Marina is an 79-year-old woman, whom I have seen and evaluated in the past. She was last seen in 2018 and was being evaluated for peripheral vascular disease. The patient recently presented with weakness. The history is obtained from the chart. The patient is not able to provide me with an appropriate history. The patient did have a right upper lobe mass versus infiltrate with likely metastatic disease to the liver. She recently developed atrial fibrillation. This was not documented during my last visit in July of 2018. PAST MEDICAL HISTORY: Hypertension, hyperlipidemia, PVD, diabetes mellitus. MEDICATIONS: Include Humalog, metoprolol, lisinopril. FAMILY HISTORY: Negative for CAD. SOCIAL HISTORY: Continues tobacco abuse. ALLERGIES: NONE. REVIEW OF SYSTEMS: Difficult to obtain. PHYSICAL EXAMINATION: GENERAL: Patient is a pleasant female, who is in no acute distress. The patient appears their stated age. VITAL SIGNS: Blood pressure 112/57, pulse 112, temperature 97.9. NEUROLOGIC: The patient is alert and oriented x3 with no focal neurologic deficits. HEENT: Sclerae without icterus. Mouth has moist mucous membranes with normal pallor. NECK: No JVD. Carotid upstroke brisk. No bruits bilaterally. LUNGS: Clear to auscultation with unlabored respirations. BACK: No scoliosis or kyphosis. CARDIAC: Irregularly irregular. ABDOMEN: Soft, nontender, nondistended. No peritoneal signs present. No hepatosplenomegaly. No abnormal striae. EXTREMITIES: 2+ femoral and 2+ dorsalis pedis pulses. No cyanosis, clubbing, or edema. SKIN: No gross abnormalities. PERTINENT LABORATORY DATA: Hemoglobin 8.3. Creatinine 3.16, chloride 117. IMPRESSION: 1. Atrial fibrillation. 2. Lung cancer with likely metastasis to the liver. 3. Recent amputation with history of severe peripheral vascular disease. RECOMMENDATIONS: Certainly, Ms. Marina's options appear limited. At this point, we will continue rate control. She is currently on IV Cardizem at 10 mg IV per hour. We will add p.o. Cardizem to her current regime for better rate control in addition to which I will avoid digoxin given elevated creatinine. Recommend echo with Doppler to assess LVEF. Job ID: [id number]
[2019-07-12] MEDS: Atorvastatin Calcium 20 MG TAB PO SCH (20:54)
[2019-07-13] MEDS: Diltiazem HCl 125 MG, Admixture Fee 1 EACH in Sodium Chloride 0.9% 100 ML IVPB SCH (04:03)
[2019-07-13 04:24] LABS: #Eosinphils 0.1 thou/uL (0.0-0.7); #Monocytes 1.2 thou/uL (0.11-0.59); #Neutrophils 17.9 thou/uL (1.40-6.50); %Basophils 0.1 % (0.0-1.0); %Eosinophils 0.3 % (0.0-10.0); %Lymphocytes 5.1 % (21.0-51.0); %Monocytes 5.9 % (0.0-10.0); %Neutrophils 88.5 % (42.0-75.0); Hemoglobin 7.9 g/dL (12.0-16.0); Mean Corpuscular HGB CONC 32.5 g/dL (32.0-36.0); Mean Corpuscular Hemoglobin 29.8 pg (27.0-31.0); Mean Corpuscular Volume 91.5 fL (78.0-98.0); Mean Platelet Volume 9.2 fL (7.4-10.4); Platelet Count 334 thou/uL (130-400); RBC Distribution Width 18.2 % (11.5-14.5); Red Blood Cell (RBC) Count 2.64 mill/uL (4.20-5.40); White Blood Cell (WBC) Count 20.2 thou/uL (4.8-10.8)
[2019-07-13 04:43] LABS: Anion Gap 16 mmol/L (10-20); BUN (Urea Nitrogen) 55 mg/dL (9.8-20.1); Calc. Creatinine Clearance 11 mL/min (70-130); Calcium 8.6 mg/dL (7.8-10.44); Carbon Dioxide 13 mmol/L (23-31); Chloride 119 mmol/L (98-107); Estimated GFR-MDRD 15; Potassium 4.7 mmol/L (3.5-5.1); Sodium 143 mmol/L (136-145)
[2019-07-13 04:46] LABS: Glucose 59 mg/dL (83-110)
[2019-07-13] MEDS: Aspirin 81 mg Enteric Coated Tablet PO SCH (09:39)
[2019-07-13] MEDS: Amoxicillin/Potassium Clav 875 MG TAB PO SCH ×2 (09:39→21:44)
[2019-07-13] MEDS: hydrALAZINE 25 MG TAB PO SCH ×2 (09:39→21:44)
[2019-07-13] MEDS: Metoprolol Tartrate 50 MG TAB PO SCH (09:40)
[2019-07-13] MEDS: Insulin Glargine 12 UNITS in Pre-Filled Syringe 1 EACH SC SCH ×2 (09:40→21:44)
[2019-07-13] MEDS ORDERED: Diltiazem HCl SR 60 mg Capsule PO SCH ×2 (12:45→21:00)
--- NOTE | 2019-07-13 14:36 | PDOC.HOSPP ---
- Subjective Encounter Date: 07/13/19 Encounter Time: 14:36 Subjective: Toelrating PO better. Continues on Diltiazem drip. She is sitting comfortably in bed. No other overnight issues. - Objective Vital Signs & Weight: Vital Signs (12 hours) Temp Pulse Resp BP Pulse Ox 07/13/19 12:55 98.6 F 106 H 20 107/59 L 98 07/13/19 08:05 96 07/13/19 07:58 98.7 F 123 H 22 H 104/50 L 96 07/13/19 04:00 99.1 F 131 H 20 97/54 L 97 Weight Admit Weight 121 lb Weight 121 lb I&O: 07/12/19 07/13/19 07/14/19 06:59 06:59 06:59 Intake Total 1593 590 Output Total 175 250 Balance 1418 340 Result Diagrams: 07/13/19 03:59 07/13/19 03:59 Additional Labs: Accuchecks 07/13/19 07/13/19 07/13/19 10:39 06:04 05:22 POC Glucose 132 H 162 H 177 H 07/12/19 07/12/19 20:54 17:11 POC Glucose 175 H 319 H Hospitalist ROS - Review of Systems All other systems reviewed; all pertinent +/- noted in HPI/Subj - Medication Medications: Active Medications Generic Name Dose Route Start Last Admin Trade Name Freq PRN Reason Stop Dose Admin Acetaminophen 1,000 mg 07/07/19 18:25 07/12/19 11:10 Tylenol PO 1,000 mg Q6H PRN Administration Moderate to Severe Pain (6-10) Amoxicillin/Clavulanate Potassium 875 mg 07/08/19 21:00 07/13/19 09:39 Augmentin PO 875 mg Q12HR ROHIT Administration Aspirin 81 mg 07/09/19 09:00 07/13/19 09:39 Ecotrin PO 81 mg DAILY ROHIT Administration Atorvastatin Calcium 20 mg 07/08/19 21:00 07/12/19 20:54 Lipitor PO 20 mg HS ROHIT Administration Dextrose/Water 25 gm 07/06/19 12:52 07/13/19 04:54 Dextrose 50% SLOW IVP 25 gm PRN PRN Administration Hypoglycemia Diltiazem HCl 60 mg 07/13/19 13:00 02/26/20 13:05 Cardizem PO 07/13/19 15:00 60 mg NOW ROHIT Administration Hydralazine HCl 50 mg 07/10/19 21:00 07/13/19 09:39 Apresoline PO 50 mg BID ROHIT Administration Diltiazem HCl 125 mg/ 125 mls @ 10 mls/hr 07/11/19 01:45 07/13/19 04:03 Miscellaneous Medication 1 IVPB 125 mls each/ Sodium Chloride INF ROHIT Administration Protocol Insulin Glargine 12 units/ 0.12 mls @ 0 mls/hr 07/11/19 21:00 07/12/19 21:08 Miscellaneous Medication SC 0.12 mls HS ROHIT Administration Insulin Glargine 12 units/ 0.12 mls @ 0 mls/hr 07/12/19 09:00 07/13/19 09:40 Miscellaneous Medication SC 0.12 mls QAM ROHIT Administration Insulin Human Lispro 0 units 07/11/19 20:54 07/12/19 17:28 Humalog SC 8 unit .MODERATE SLIDING SC PRN Administration MODERATE SLIDING SCALE Protocol Metoprolol Tartrate 50 mg 07/10/19 09:00 07/13/19 09:40 Lopressor PO 50 mg DAILY ROHIT Administration Tramadol HCl 50 mg 07/07/19 18:25 07/11/19 08:30 Ultram PO 50 mg Q12H PRN Administration Pain - Exam General Appearance: NAD, awake alert, ill appearing Eye: PERRL, anicteric sclera ENT: normocephalic atraumatic, no oropharyngeal lesions, moist mucosa Neck: supple, symmetric, no JVD, no thyromegaly, no lymphadenopathy, no carotid bruit Heart: RRR, no murmur, no gallops, no rubs, normal peripheral pulses Respiratory: CTAB, no wheezes, no rales, no ronchi, normal chest expansion, no tachypnea, normal percussion Gastrointestinal: soft, non-tender, non-distended, normal bowel sounds, no palpable masses, no hepatomegaly, no splenomegaly, no bruit Extremities: no cyanosis, no clubbing, no edema Skin: normal turgor, no lesions, no rashes Neurological: cranial nerve grossly intact, normal sensation to touch, no weakness, no focal deficits, no new deficit Musculoskeletal: normal tone, normal strength, no muscle wasting Psychiatric: normal affect, normal behavior, A&O x 3 Hosp A/P - Plan IMPRESSION Right lung mass, likely metastatic cancer Afib with RVR Liver metastasis Osteomyelitis, status post amputation of the first and second toe Enterococcus faecalis urinary tract infection Peripheral artery disease with occlusion of the left superficial femoral artery Type 2 diabetes mellitus, uncontrolled Anemia Hypertension PLAN Appreciate surgical recommendations continue wound care Continue Lantus to 12 units at bedtime and a.m., and moderate dose sliding scale We will continue Augmentin Continue diltiazem drip for A. fib RVR, she is likely a very poor candidate for any kind of anticoagulation, switch to PO Cardizem Appreciate cardio reccs Continue her other medications from home Disposition: Had a discussion with family regarding her overall goals of care, they want to send her to a long-term nursing facility with a transition to hospice. Palliative care to reintroduce goals of care tomorrow. Once family has selected facility, can d/c
[2019-07-13] MEDS: Lactated Ringer's 1,000 ML IV SCH (15:39)
[2019-07-13] MEDS: HumaLOG 300 UNITS/3 ML VIAL SC PRN (17:25)
[2019-07-13] MEDS: Atorvastatin Calcium 20 MG TAB PO SCH (21:44)
[2019-07-14 05:05] LABS: Band 7 % (5-11); Hemoglobin 7.8 g/dL (12.0-16.0); Lymphocytes 3 % (21-51); MDiff Complete? YES; Mean Corpuscular Hemoglobin 29.5 pg (27.0-31.0); Mean Corpuscular Volume 92.2 fL (78.0-98.0); Mean Platelet Volume 9.3 fL (7.4-10.4); Monocytes 1 % (0-10); Neutrophil 89 % (42-75); Platelet Count 367 thou/uL (130-400); Platelet Morphology Comment Appears Adequate; RBC Distribution Width 18.3 % (11.5-14.5); Red Blood Cell (RBC) Count 2.65 mill/uL (4.20-5.40); White Blood Cell (WBC) Count 17.6 thou/uL (4.8-10.8)
[2019-07-14] MEDS: Lactated Ringer's 1,000 ML IV SCH (05:22)
[2019-07-14] MEDS: Amoxicillin/Potassium Clav 875 MG TAB PO SCH (09:05)
[2019-07-14] MEDS: hydrALAZINE 25 MG TAB PO SCH (09:05)
[2019-07-14] MEDS: Metoprolol Tartrate 50 MG TAB PO SCH (09:06)
[2019-07-14] MEDS: Aspirin 81 mg Enteric Coated Tablet PO SCH (09:07)
--- NOTE | 2019-07-14 09:54 | PRG ---
DATE OF SERVICE: 07/13/2019 TIME OF VISIT: 0845 hours. SUBJECTIVE: Ms. Marina has had no overnight events. Her heart rate has remained elevated on Cardizem. Plan is to wean off IV in the next 24 hours per previous note. Her creatinine is up to 3.51 today. OBJECTIVE: GENERAL: Elderly female with no acute distress, frail. VITAL SIGNS: The patient is intermittently hypotensive with pressures of 100/53, sometimes lower, pulse rate 110 to 120 beats per minute, respiratory rate stable, O2 saturation stable. NEUROLOGIC: Alert, awake, and oriented x3. CHEST: No wheezing or rhonchi. CARDIOVASCULAR: Irregularly irregular. ABDOMEN: Soft, nontender. EXTREMITIES: No clubbing or cyanosis. Mild bilateral lower extremity edema. IMPRESSION: 1. New-onset atrial fibrillation with rapid ventricular response. 2. Lung cancer with metastasis to liver. 3. History of severe peripheral vascular disease. 4. Acute renal insufficiency on chronic kidney disease. 5. Chronic anemia. 6. Urinary tract infection. 7. Diabetes type 2. PLAN: At this time, overall, her course remains guarded. Her rate control is marginal, but improved overall. We can try to increase her beta blockers in hopes of not dropping her pressure too much. Another option is digoxin that we have to use caution with her renal insufficiency. I recommend continuation of aspirin only at this time, given her chronic anemia and other multiple comorbidities. Discussed long-term plan of care with , but overall poor prognosis. Job ID: [id number]
[2019-07-14] MEDS: Insulin Glargine 12 UNITS in Pre-Filled Syringe 1 EACH SC SCH (10:34)
--- NOTE | 2019-07-14 12:54 | PDOC.PALFU ---
Palliative Care Follow-up Note Spoke with Dr Ramirez about Ms Marina and need to readdress goal of care/ discharge plan. Patient with continued afib and will not be accepted with this at the [facility], consideration to having [facility] come evaluate patient for inpatient. Contacted patient sister Jacquelyn Hogue, who was at the store. She stated that she would return the call when she returned to the home setting. Will await phone call to discuss evaluation by [facility] for [facility].
[2019-07-14 17:12] VITALS: BP 117/58; TEMP 98.5
--- NOTE | 2019-07-15 20:07 | PDISCHARGE ---
Discharge - Disposition Disposition: DETENTION FACILITY - Patient Instructions Pre-Printed Education: Negative Pressure Wound Therapy Dressing Care, Living With an Amputation, MRSA Infection, Adult, Dysphagia Eating Plan, Pureed Additional Instructions: PLAN FOR WOUND AND COMFORT CARE AT SNF, ULTIMATELY WILL BE TRANSITIONED TO HOSPICE CARE FROM THERE, PHYSICIAN AT [facility] IS AWARE OF PLAN. Care Plan Goals: FOCUS: Transition from Acute Care after Discharge GOAL: Successful transition to care in the community YOUR TASKS: (1) review all information outlined in your discharge packet (2) follow any instructions outlined in your discharge packet (3) contact your primary care provider if you have questions or need additional assistance See patient discharge instruction sheet for detailed teaching. Patient verbalizes understanding of medications and is able to verbalize follow-up care. See Discharge Plan for additional discharge information. Patient secured in private vehicle prior to departure. - Referrals and PCP Follow-Up Referrals and PCP Follow-Up: [facility]* [Outside] (Senior Care Placement.) Mauri Pfeiffer MD [Active] - 2-3 Weeks (Call office to schedule appointment to check on wound healing) Vishnu Zepeda MD [Active] - (Will accept and follow as pcp for snf placement at the [facility] Luke Young MD [Primary Care Provider] - - Activity Instructions Activity:: Activity as Tolerated - Nourishment Instructions Nourishment:: Other Additional Dietary Instructions:: pureed Course - Course Orders, Labs, Meds: Patient initially presenting with weakness, admitted for new finding of metastatic disease and diabetic foot infection involving the first and second metatarsals. There was CT chest which demonstrated a 3.5 cm solid mass in the right lower with metastatic disease to the mediastinal and hilar lymph nodes as well as mass in the liver. Additionally, there was on CT abdomen suspicious of possible hepatic metastases. Regarding foot infection, patient underwent an amputation of the left first and second toes of the metatarsals as the imaging findings was highly suspicious for osteomyelitis. Patient overall prognosis quite poor as she has Alzheimer's dementia and a new finding of metastasis, family opted to not pursue a biopsy and proceed with a more comfort care option. Palliative and oncology care team is involved, family will continue wound care and long-term nursing care outside of the hospital to transition to hospice from there. I personally spoke to the physician at the SNF and we are agreement on this plan as per family wishes, Hosp A/P - Plan IMPRESSION Right lung mass, likely metastatic cancer Afib with RVR Liver metastasis Osteomyelitis, status post amputation of the first and second toe Enterococcus faecalis urinary tract infection Peripheral artery disease with occlusion of the left superficial femoral artery Type 2 diabetes mellitus, uncontrolled Anemia Hypertension
--- NOTE | 2019-07-15 20:18 | PDOC.BPN ---
- Brief Progress Note DISCHARGE SUMMARY LIVE [facility] Discharge Patient Name: ALICJA DURANT Date of : 1940 Patient Status: Inpatient Attending Provider: Grady Ramirez Date: 07/14/19 20:07 Initialization Date: 07/15/19 20:07 Discharge - Disposition Disposition: MANAGER PRIVACY NURSING CARE WITH EVENTUAL TRANSITION TO HOSPICE CARE - Patient Instructions Pre-Printed Education: Negative Pressure Wound Therapy Dressing Care, Living With an Amputation, MRSA Infection, Adult, Dysphagia Eating Plan, Pureed Additional Instructions: PLAN FOR WOUND AND COMFORT CARE AT [facility], ULTIMATELY WILL BE TRANSITIONED TO HOSPICE CARE FROM THERE, PHYSICIAN AT SNF IS AWARE OF PLAN. Care Plan Goals: FOCUS: Transition from Acute Care after Discharge GOAL: Successful transition to care in the community YOUR TASKS: (1) review all information outlined in your discharge packet (2) follow any instructions outlined in your discharge packet (3) contact your primary care provider if you have questions or need additional assistance See patient discharge instruction sheet for detailed teaching. Patient verbalizes understanding of medications and is able to verbalize follow-up care. See Discharge Plan for additional discharge information. Patient secured in private vehicle prior to departure. - Referrals and PCP Follow-Up Referrals and PCP Follow-Up: [facility]* [Outside] (Fpc Placement.) Mauri Pfeiffer MD [Active] - 2-3 Weeks (Call office to schedule appointment to check on wound healing) Vishnu Zepeda MD [Active] - (Will accept and follow as pcp for snf placement at the [facility].) Luke Young MD [Primary Care Provider] - - Activity Instructions Activity:: Activity as Tolerated - Nourishment Instructions Nourishment:: Other Additional Dietary Instructions:: pureed Course - Course Orders, Labs, Meds: Patient initially presenting with weakness, admitted for new finding of metastatic disease and diabetic foot infection involving the first and second metatarsals. There was CT chest which demonstrated a 3.5 cm solid mass in the right lower with metastatic disease to the mediastinal and hilar lymph nodes as well as mass in the liver. Additionally, there was on CT abdomen suspicious of possible hepatic metastases. Regarding foot infection, patient underwent an amputation of the left first and second toes of the metatarsals as the imaging findings was highly suspicious for osteomyelitis. Patient overall prognosis quite poor as she has Alzheimer's dementia and a new finding of metastasis, family opted to not pursue a biopsy and proceed with a more comfort care option. Palliative and oncology care team is involved, family will continue wound care and long-term nursing care outside of the hospital to transition to hospice from there. I personally spoke to the physician at the SNF and we are agreement on this plan as per family wishes, Hosp A/P - Plan IMPRESSION Right lung mass, likely metastatic cancer Afib with RVR Liver metastasis Osteomyelitis, status post amputation of the first and second toe Enterococcus faecalis urinary tract infection Peripheral artery disease with occlusion of the left superficial femoral artery Type 2 diabetes mellitus, uncontrolled Anemia Hypertension
--- NOTE | 2019-07-15 22:53 | PQF ---
ALICJA DURANT SUNIL [id number] [facility]-284 [id number] CLINICAL DOCUMENTATION CLARIFICATION FORM: POST DISCHARGE Addendum to original discharge summary date: ____ Late entry note date: __ DATE:07/15/2019 ATTN:CRISTIAN ARTIS Please exercise your independent, professional judgment in responding to the clarification form. Clinical indicators are provided on the bottom of this form for your review Please check appropriate box(s) to clarify if the following diagnosis has been ruled in or ruled out: Pneumonia [ ] Ruled in diagnosis [ ] Continue to treat [ ] Resolved [ ] Ruled out diagnosis [ ] Cannot rule out diagnosis [ ] Other diagnosis [ ] Unable to determine In addition, please specify: Present on Admission (POA): [ ] Yes [ ] No [ ] Unable to determine For continuity of documentation, please document condition throughout progress notes and discharge summary. Thank You. CLINICAL INDICATORS - SIGNS / SYMPTOMS / LABS Right lung mass , Possibly cancer-Documented in progress note on 07/10 by Javad Quinn Right lung pneumonia-Documented in progress note on 07/10 by Javad Quinn Right lung mass-possibly cancer vs pneumonia - Documented in hospitalist progress note on 07/08 Jasmin Deleon MD WBC-17.7 likely from cancer vs infection - Documented in hospitalist progress note on 07/08 Jasmin Deleon MD Pt presented with cough and shortness of breath, CT chest showed RUL lung mass with metastases to hilar area suspicous for possible cancer - Documented in hospitalist progress note on 07/08 Jasmin Deleon MD RISK [employer]CTORS Pt presented with cough and shortness of breath- Documented in hospitalist progress note on 07/08 Jasmin Deleon MD TREATMENTS S/P IV ceftriaxone and azithromycin for there days. Will switch to oral Augmentin/azithromycin given cough has improved with antibioticsis-Documented in hospitalist progress note on 07/08 Jasmin Deleon MD [employer] Win[employer] (This form is maintained as a part of the permanent medical record) 2014 [email or web address]. All Rights Reserved [email or web address] [email or web address] [phone] [email or web address]
--- NOTE | 2019-07-21 20:30 | PQF ---
ALICJA DURANT SUNIL [id number] [id number] CLINICAL DOCUMENTATION CLARIFICATION FORM: POST DISCHARGE Addendum to original discharge summary date: ____ Late entry note date: __ DATE:07/21/2019 ATTN: CRISTIAN ARTIS Please exercise your independent, professional judgment in responding to the clarification form. Clinical indicators are provided on the bottom of this form for your review Please check appropriate box(s) to clarify if the following diagnosis has been ruled in or ruled out: Severe protein calorie malnutrition [ ] Ruled in diagnosis [ ] Continue to treat [ ] Resolved [ ] Ruled out diagnosis [ ] Cannot rule out diagnosis [ ] Other diagnosis [ ] Unable to determine In addition, please specify: Present on Admission (POA): [ ] Yes [ ] No [ ] Unable to determine For continuity of documentation, please document condition throughout progress notes and discharge summary. Thank You. CLINICAL INDICATORS - SIGNS / SYMPTOMS / LABS Severe protein calorie malnutrition-Documented in palliative care consult on by Eli Cifuentes Weakness-Documented in H&P on 07/05 by Jasmin Deleon MD Sister reports weight loss, but unclear how much-Documented in H&P on 07/05 by Jasmin Deleon MD Albumin-3.1-Documented in H&P on 07/05 by Jasmin Deleon MD Lung cancer with metastasis to liver-Documented in PN on 07/13 by Iesha Marte Elzabeth PA-C BMI-20.1-Documented in FNS assessment Dysphagia-Documented in FNS assessment Moderate dorsal interosseous muscle wasting moderate clacicle area wasting moderate loss of subcutaneous obital fat, moderate gastrocnemius muscle wasting , decreased PO intake -Documented in FNS assessment RISK FACTORS GERD-Documented in H&P on 07/05 by Jasmin Deleon MD ANATOLY-Documented in H&P on 07/05 by Jasmin Deleon MD Lung cancer with metastasis to liver-Documented in PN on 07/13 by Iehsa Marte Elzabeth PA-C TREATMENTS General healthful diet suppl comm beverage-Documented in FNS assessment Recommend sugar free might shakes TID on meal trays to promote intake once diet advanced-Documented in FNS assessment Recommend Suplena PRN for meal trays less than 75% once diet advanced - Documented in FNS assessment (This form is maintained as a part of the permanent medical record) 2014 [employer]. All Rights Reserved Manohar [email or web address]
== END 2019-07-14 18:25 | DRG 982 ==
LOC: ERS 11:42 → T4-B 17:48 → 2SW 07-11 01:35 → 2NO 07-12 13:29
PROVIDERS: ADMIT Emergency Medicine; ATTEND Internal Medicine
PROC: 0Y6Q0Z0 Detachment at Left 1st Toe, Complete, Open Approach (ICD-10-PCS; principal; 2019-07-05)
PROC: 0Y6N0ZB Detachment at Left Foot, Partial 2nd Ray, Open Approach (ICD-10-PCS; 2019-07-05)
DX: C34.91 Malignant neoplasm of unspecified part of right bronchus or lung (principal); N13.30 Unspecified hydronephrosis; C78.7 Secondary malignant neoplasm of liver and intrahepatic bile duct; N17.9 Acute kidney failure, unspecified; N39.0 Urinary tract infection, site not specified; M86.8X7 Other osteomyelitis, ankle and foot; N18.4 Chronic kidney disease, stage 4 (severe); E87.0 Hyperosmolality and hypernatremia; R64 Cachexia; C79.89 Secondary malignant neoplasm of other specified sites; Z51.5 Encounter for palliative care; I48.91 Unspecified atrial fibrillation; Z66 Do not resuscitate; K21.9 Gastro-esophageal reflux disease without esophagitis; Z89.512 Acquired absence of left leg below knee; Z87.891 Personal history of nicotine dependence; E87.5 Hyperkalemia; G30.9 Alzheimer's disease, unspecified; F02.80 Dementia in other diseases classified elsewhere, unspecified severity, without behavioral disturbance, psychotic disturbance, mood disturbance, and anxiety; D64.9 Anemia, unspecified; E04.1 Nontoxic single thyroid nodule; R13.10 Dysphagia, unspecified; E11.69 Type 2 diabetes mellitus with other specified complication; I12.9 Hypertensive chronic kidney disease with stage 1 through stage 4 chronic kidney disease, or unspecified chronic kidney disease; E11.22 Type 2 diabetes mellitus with diabetic chronic kidney disease; Z86.73 Personal history of transient ischemic attack (TIA), and cerebral infarction without residual deficits; Z87.81 Personal history of (healed) traumatic fracture; E11.51 Type 2 diabetes mellitus with diabetic peripheral angiopathy without gangrene; B96.89 Other specified bacterial agents as the cause of diseases classified elsewhere; E87.8 Other disorders of electrolyte and fluid balance, not elsewhere classified
CPT/HCPCS: 36415; 36416; 51701; 71045; 71250; 74176; 76536; 76770; 80048; 80053; 81003; 81015; 82607; 82728; 82746; 83540; 83550; 83735; 84484; 85025; 85027; 87040; 87045; 87046; 87070; 87077; 87086; 87186; 87205; 87324; 87328; 87329; 87427; 87449; 88305; 88311; 93005; 93010; 93923; 96361; 96365; 96367; A4353; J0456; J0696; J1160; J1815; J2001; J2704; J3010; J3490

== ENCOUNTER 2019-07-16 19:04 | Inpatient (IN) | payer MEDICARE, OTHER ==
[2019-07-16 19:38] LABS: Hemoglobin 8.4 g/dL (12.0-16.0); Mean Corpuscular HGB CONC 32.5 g/dL (32.0-36.0); Mean Corpuscular Hemoglobin 29.6 pg (27.0-31.0); Mean Corpuscular Volume 90.9 fL (78.0-98.0); RBC Distribution Width 18.4 % (11.5-14.5); Red Blood Cell (RBC) Count 2.85 mill/uL (4.20-5.40); White Blood Cell (WBC) Count 19.4 thou/uL (4.8-10.8)
[2019-07-16] MEDS ORDERED: Diltiazem 125 MG/25 ML ONE (19:44)
[2019-07-16 19:57] LABS: ALT (SGPT) 23 U/L (8-55); AST (SGOT) 31 U/L (5-34); Albumin 2.5 g/dL (3.4-4.8); Alkaline Phosphatase 163 U/L (40-110); Anion Gap 23 mmol/L (10-20); BUN (Urea Nitrogen) 83 mg/dL (9.8-20.1); Bilirubin, Total 0.2 mg/dL (0.2-1.2); CK (CPK) 212 U/L (29-168); Calc. Creatinine Clearance 0 mL/min (70-130); Calcium 8.4 mg/dL (7.8-10.44); Carbon Dioxide 10 mmol/L (23-31); Chloride 116 mmol/L (98-107); Estimated GFR-MDRD 8; Globulin 4.1 g/dL (2.4-3.5); Glucose 440 mg/dL (83-110); Lipase 85 U/L (8-78); Magnesium 2.2 mg/dL (1.6-2.6); Potassium 4.9 mmol/L (3.5-5.1); Protein, Total 6.6 g/dL (6.0-8.3); Sodium 144 mmol/L (136-145)
[2019-07-16 19:59] LABS: Band 1 % (5-11); Lymphocytes 4 % (21-51); MDiff Complete? YES; Mean Platelet Volume 8.7 fL (7.4-10.4); Monocytes 6 % (0-10); Neutrophil 89 % (42-75); Platelet Count 459 thou/uL (130-400)
[2019-07-16] MEDS ORDERED: Morphine 4 MG/ML VIAL ONE (20:05)
[2019-07-16] MEDS ORDERED: Magnesium 2 GM/50 ML BAG (IN WATER) ONE (20:05)
--- NOTE | 2019-07-16 20:20 | RAD ---
EXAM: Portable chest PROVIDED CLINICAL HISTORY: Tachycardia COMPARISON: 07/11/2019 FINDINGS: Cardiac and mediastinal silhouette unchanged in appearance. Consolidation at the right upper lung zon e redemonstrated. Prominence of the pulmonary vasculature and pulmonary interstitium. No pleural fluid or pneumothorax apparent, with limitations due to the supine nature of the study. IMPRESSION: Persistent right upper lung zone consolidation. Correlate with concerns for pneumonia. Pulmonary vasc ular congestion.
[2019-07-16 20:33] LABS: CKMB 2.7 ng/mL (0-6.6)
--- NOTE | 2019-07-16 20:33 | CT ---
EXAM: CT Brain WO Con PROVIDED CLINICAL HISTORY: Altered mental status COMPARISON: 11/09/2018 FINDINGS: There is loss of amezcua-white differentiation and subcortical hypodensity involving the left posterior cerebral artery distribution, compatible with recent infarction. The ventricular system is nondilated. There is no evidence for intracranial hemorrhage. There is no shift of midline structures . The basilar cisterns appear patent. Chronic microvascular ischemic changes are seen involving the cerebrum. There is an aggressive lytic lesion involving the right parietal skull with extraosseous so ft tissue mass at both the inner and outer table. This measures at least 3.5 cm in greatest transverse dimension. IMPRESSION: 1. No evidence for intracranial hemorrhage. 2. 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 3. Lytic lesion involving the right parietal skull, metastatic disease versus myeloma.
[2019-07-16] MEDS ORDERED: Cefepime 2 GM VIAL ONE (20:34)
--- NOTE | 2019-07-16 20:37 | CT ---
EXAM: CT Stone Protocol PROVIDED CLINICAL HISTORY: Abdominal pain COMPARISON: 07/05/2019 FINDINGS: Partially visualized right pleural fluid. Innumerable hypodense hepatic masses are redemonstrated. Right ureteral stent is again seen. Amos ca theter is present within the urinary bladder. There is no surrounding inflammatory change or fluid. The solid abdominal organs are suboptimally evaluated in the absence of IV contrast material but demo nstrate a stable unenhanced CT appearance. There is no bowel dilatation, inflammatory fat stranding, free fluid or free air apparent. There is a n ill-defined destructive lesion involving the left iliac wing Vascular calcifications are noted. IMPRESSION: Hepatic and osseous metastatic disease. Right pleural fluid.
[2019-07-16] MEDS ORDERED: Acetaminophen 650 MG Suppository PR PRN (21:26)
[2019-07-16] MEDS ORDERED: Vancomycin HCl 1 GM in Premix Bag 1 BAG IVPB SCH (21:45)
[2019-07-16 21:52] LABS: Bilirubin Negative (Negative); Blood, Urine Moderate (Negative); Glucose, Urine (Dipstick) Negative (Negative); Leukocyte Large (Negative); Nitrite Negative (Negative); Protein, Urine (Dipstick) > or equal to 300 mg/dL (Neg-Trace); Urobilinogen 0.2 mg/dL (Less than 2)
[2019-07-16 21:54] LABS: Clarity Turbid (Clear)
[2019-07-16 22:02] LABS: Bacteria/HPF 1+ HPF (None Seen); Renal Epithelial 0-3 HPF (None Seen); WBC/HPF 21-50 HPF (0-3); Yeast-Budding 1+ HPF (None Seen)
[2019-07-16 22:22] LABS: Lactic Acid 2.4 mmol/L (0.5-2.2)
[2019-07-16 22:57] LABS: Troponin I 0.184 ng/mL (< 0.028)
[2019-07-16] MEDS: Sodium Chloride 0.9% 1,000 ML IV SCH (23:37)
--- NOTE | 2019-07-17 02:55 | HP ---
CHIEF COMPLAINT: Abdominal pain after having Amos placed for 2 days. HISTORY OF PRESENT ILLNESS: Ms. Marina is an 79-year-old female with multiple medical problems including chronic kidney disease, stage 4; CVA; dementia; diabetes mellitus, type 2; lung mass, ?metastasis; dementia; hypertension; among others, presents to the emergency room by EMS from [place] for evaluation of abdominal pain after having a Amos placed 2 days ago with no urine output. The patient was evaluated in the emergency room and the patient was found to be in acute renal failure with creatinine increased to 5.0, baseline around 3. The patient also was found to be in atrial fibrillation with RVR. The patient had elevated lactic acid. Septic workup done in the ED. The patient is on IV antibiotics. Also, the patient was given IV diltiazem, heart rate went down from the 150s to the low 100s. The patient is a poor historian, unable to give any history. The patient is being admitted to the hospital for further management. PAST MEDICAL HISTORY: As mentioned above in the history of present illness. PAST SURGICAL HISTORY: 1. Right below-knee amputation. 2. Appendectomy. 3. Urogenital implants. SOCIAL HISTORY: Lives in a long-term care facility, [place]. Former smoker. FAMILY HISTORY: Unknown. REVIEW OF SYSTEMS: Unable to obtain due to the patient's underlying medical condition. ALLERGIES: NO KNOWN ALLERGIES. HOME MEDICATIONS: Please see home medication reconciliation form for updated medications. PHYSICAL EXAMINATION: GENERAL: The patient is opening her eyes, but does not follow commands. VITAL SIGNS: Blood pressure 127/73, pulse is 128, respiratory rate is 20, pulse oximetry is 100% on room air, temperature is 98.1. HEAD AND NECK: Normocephalic, atraumatic. NECK: Supple. No JVD. CHEST: Coarse bilateral breath sounds. HEART: Irregularly irregular, tachycardic. ABDOMEN: Soft. Bowel sounds present. NEUROLOGIC: The patient is awake, but does not follow commands. PSYCHIATRIC: Unable to assess. EXTREMITIES: No clubbing, no cyanosis. GENITOURINARY: Amos in place. LABORATORY DATA: Troponin 0.1. Chest x-ray shows persistent right upper lung zone consolidation concerning for pneumonia. WBC count is elevated at 19.4, hemoglobin is 8.4, and platelet 459. Sodium 144, BUN is 83, creatinine 5.9. Lactic acid at 3.8. ASSESSMENT: 1. Sepsis. 2. Pneumonia, healthcare associated? 3. Acute on chronic renal failure. 4. Lung mass history with ?metastasis. 5. Atrial fibrillation with rapid ventricular response. 6. Indeterminate troponin. 7. Elevated BNP. PLAN: 1. Admit to IMCU. 2. Close monitoring. 3. Telemetry monitoring. 4. Septic workup including cultures. 5. IV antibiotics to cover for healthcare associated pneumonia. 6. IV fluids, cautious, reassess in a.m. 7. Monitor kidney function and urine output. 8. Consult Nephrology for evaluation and further recommendations. 9. Reconcile home medications. 10. DVT prophylaxis as appropriate. 11. Expected length of stay 2 midnights or more. Job ID: [id number]
[2019-07-17 03:58] LABS: #Eosinphils 0.1 thou/uL (0.0-0.7); #Lymphocytes 0.9 thou/uL (1.20-3.40); #Monocytes 0.9 thou/uL (0.11-0.59); #Neutrophils 13.8 thou/uL (1.40-6.50); %Basophils 0.1 % (0.0-1.0); %Eosinophils 0.3 % (0.0-10.0); %Lymphocytes 5.6 % (21.0-51.0); %Monocytes 5.6 % (0.0-10.0); %Neutrophils 88.4 % (42.0-75.0); Hemoglobin 7.5 g/dL (12.0-16.0); Mean Corpuscular HGB CONC 32.2 g/dL (32.0-36.0); Mean Corpuscular Hemoglobin 29.4 pg (27.0-31.0); Mean Corpuscular Volume 91.3 fL (78.0-98.0); Mean Platelet Volume 8.6 fL (7.4-10.4); Platelet Count 381 thou/uL (130-400); RBC Distribution Width 18.3 % (11.5-14.5); Red Blood Cell (RBC) Count 2.56 mill/uL (4.20-5.40); White Blood Cell (WBC) Count 15.7 thou/uL (4.8-10.8)
[2019-07-17 04:14] LABS: Anion Gap 17 mmol/L (10-20); BUN (Urea Nitrogen) 75 mg/dL (9.8-20.1); Calc. Creatinine Clearance 8 mL/min (70-130); Calcium 7.7 mg/dL (7.8-10.44); Chloride 120 mmol/L (98-107); Estimated GFR-MDRD 10; Glucose 286 mg/dL (83-110); Potassium 4.2 mmol/L (3.5-5.1); Sodium 142 mmol/L (136-145)
[2019-07-17 04:22] VITALS: BMI 22.4
[2019-07-17 04:22] LABS: Carbon Dioxide 9 mmol/L (23-31)
[2019-07-17] MEDS: Diltiazem 125 MG in Sodium Chloride 0.9% 100 ML IVPB SCH ×3 (05:38→23:00)
[2019-07-17] MEDS ORDERED: Prevnar 13-Val Conj/PF 0.5 ML SYRINGE IM ONE (09:00)
--- NOTE | 2019-07-17 09:48 | PDOC.HOSPP ---
- Subjective Encounter Date: 07/17/19 Encounter Time: 12:40 Subjective: Patient complaining of abdominal pain. Confused and answers yes to all questions. - Objective Vital Signs & Weight: Vital Signs (12 hours) Temp 07/17/19 07:23 97.2 F L 07/17/19 03:53 97.4 F L 07/16/19 22:58 97.4 F L Weight Weight 134 lb 7 oz Most Recent Monitor Data Heart Rate from ECG 103 NIBP 106/41 NIBP BP-Mean 62 Respiration from ECG 26 SpO2 95 I&O: 07/16/19 07/17/19 07/18/19 06:59 06:59 06:59 Intake Total 564 Output Total 25 Balance 539 Result Diagrams: 07/17/19 03:31 07/17/19 03:31 Additional Labs: Accuchecks 07/17/19 05:18 POC Glucose 276 H Hospitalist ROS - Review of Systems ROS unobtainable: due to mental status - Medication Medications: Active Medications Generic Name Dose Route Start Last Admin Trade Name Jeanq PRN Reason Stop Dose Admin Sodium Chloride 1,000 mls @ 75 mls/hr 07/16/19 22:00 07/16/19 23:37 Normal Saline 0.9% IV 1,000 mls .[id number] ROHIT Administration Diltiazem HCl 125 mg/ Sodium 125 mls @ 0 mls/hr 07/17/19 01:00 07/17/19 05:38 Chloride IVPB 125 mls INF ROHIT Administration Protocol Titrate - Exam General Appearance: NAD ENT: moist mucosa Heart: RRR, no murmur, no gallops, no rubs Respiratory: no wheezes, no rales, no ronchi Respiratory - other findings: coarse breath sounds Gastrointestinal: soft, non-tender, non-distended, normal bowel sounds Psychiatric: not oriented Hosp A/P (1) Sepsis Code(s): A41.9 - SEPSIS, UNSPECIFIED ORGANISM Status: Acute (2) Pneumonia Code(s): J18.9 - PNEUMONIA, UNSPECIFIED ORGANISM Status: Acute Qualifiers: Laterality: right Lung location: upper lobe of lung (3) Acute worsening of stage 4 chronic kidney disease Code(s): N18.4 - CHRONIC KIDNEY DISEASE, STAGE 4 (SEVERE) Status: Acute (4) Atrial fibrillation with RVR Code(s): I48.91 - UNSPECIFIED ATRIAL FIBRILLATION Status: Acute (5) Metastatic cancer Code(s): C79.9 - SECONDARY MALIGNANT NEOPLASM OF UNSPECIFIED SITE Status: Acute (6) Diabetes Code(s): E11.9 - TYPE 2 DIABETES MELLITUS WITHOUT COMPLICATIONS Status: Chronic Qualifiers: Diabetes mellitus type: type 2 Diabetes mellitus complication status: with kidney complications Diabetes mellitus complication detail: with chronic kidney disease Chronic kidney disease stage: stage 3 (moderate) (7) HTN (hypertension) Code(s): I10 - ESSENTIAL (PRIMARY) HYPERTENSION Status: Chronic Qualifiers: Hypertension type: essential hypertension Qualified Code(s): I10 - Essential (primary) hypertension (8) Severe protein-calorie malnutrition Code(s): E43 - UNSPECIFIED SEVERE PROTEIN-CALORIE MALNUTRITION Status: Chronic (9) Dementia Code(s): F03.90 - UNSPECIFIED DEMENTIA WITHOUT BEHAVIORAL DISTURBANCE Status: Chronic (10) Ischemic stroke Code(s): I63.9 - CEREBRAL INFARCTION, UNSPECIFIED Status: Chronic Plan: recent on CT brain - Plan IV antibiotics- Cefepime and Vanc starting 07/16/2019 Diltiazem drip for Afib Metastatic cancer unknown origin Recent stroke on CT brain Will consult palliative care Abdominal pain likely from cancer, but will flush quigley and check bladder scan to back sure no retention.
[2019-07-17] MEDS: Famotidine/PF 20 mg/2ml Vial SLOW IVP SCH (10:30)
[2019-07-17] MEDS: Heparin 5,000 UNITS/ML VIAL SC SCH ×2 (10:31→22:30)
[2019-07-17] MEDS: Sodium Chloride 0.9% 1,000 ML IV SCH (13:53)
[2019-07-17] MEDS: Morphine 4 MG/ML VIAL SLOW IVP PRN (14:25)
[2019-07-17 20:27] LABS: Vancomycin, Trough 11.5 ug/mL
[2019-07-17] MEDS ORDERED: Vancomycin HCl 250 MG in Sodium Chloride 0.9% 100 ML IVPB SCH (20:45)
[2019-07-17] MEDS ORDERED: HOLD VANCOMYCIN FOR LEVEL >20 FS SCH (20:45)
[2019-07-17] MEDS ORDERED: Vancomycin HCl 1 GM in Premix Bag 1 BAG IVPB SCH (20:45)
[2019-07-17] MEDS ORDERED: Vancomycin HCl 750 MG in Sodium Chloride 0.9% 250 ML 250 ML IVPB SCH (20:45)
[2019-07-17] MEDS ORDERED: Vancomycin HCl 500 MG in Sodium Chloride 0.9% 100 ML IVPB SCH ×2 (20:45→21:00)
[2019-07-17] MEDS ORDERED: PROTEIN HYDROLYS PO SCH (21:00)
[2019-07-17] MEDS ORDERED: AMINO ACIDS PO SCH (21:00)
[2019-07-17] MEDS ORDERED: Sodium Bicarb 50 MEQ/50 ML VIAL IVP SCH (22:00)
[2019-07-17] MEDS: Sodium Bicarbonate 150 MEQ in Dextrose 5% in Water 1,000 ML IV SCH (23:43)
[2019-07-17] MEDS: PRO STAT AWC PO SCH (23:46)
[2019-07-17] MEDS: Cefepime 1 GM in Sodium Chloride 0.9% 100 ML IVPB SCH (23:59)
[2019-07-18] MEDS: Morphine 4 MG/ML VIAL SLOW IVP PRN (00:07)
[2019-07-18] MEDS: Ascorbic Acid 500 mg Chewable Tablet PO SCH ×3 (00:12→21:43)
--- NOTE | 2019-07-18 00:32 | CON ---
DATE OF CONSULTATION: 07/17/2019 SERVICE: Pulmonary Medicine. REASON FOR CONSULTATION: IMCU patient. HISTORY OF PRESENT ILLNESS: The patient is an 79-year-old female with past medical history significant for multiple comorbidities and advanced dementia. It is my understanding, at baseline she is only oriented x1. Either way, she was in her usual state of health when she started having increasing abdominal discomfort after having placed a Amos catheter for a period of 2 days. She was brought to the emergency department and discovered to be in an atrial fibrillation with RVR. Her blood pressures were only marginal. She cannot provide any additional elements of the history. At this point, she keeps her eyes closed. Clearly, she will respond and she will cough. She is protecting her airway for the most part. During the prior hospital stay, discharge to hospice was being planned, but they could not take the wound back. As such, that fell through. PAST MEDICAL HISTORY: 1. Chronic kidney disease, stage 4. 2. Multiple cerebrovascular accidents. 3. Dementia, advanced. 4. Type 2 diabetes mellitus. 5. Hypertension. 6. Peripheral vascular disease. PAST SURGICAL HISTORY: 1. Right below-knee amputation. 2. Appendectomy. 3. Urogenital implants. SOCIAL HISTORY: She lives in the [facility] and is a long-term resident there. She has a remote history of smoking. She does not have any current access to alcohol or illicit drugs. FAMILY HISTORY: Noncontributory. ALLERGIES: NO KNOWN DRUG ALLERGIES. MEDICATIONS: List of her inpatient medications was reviewed. No specific updates were made at this time. REVIEW OF SYSTEMS: General, head, ears, eyes, nose, throat, cardiovascular, respiratory, GI, , musculoskeletal, neurologic, and skin is negative except as mentioned in HPI. PHYSICAL EXAMINATION: VITAL SIGNS: Afebrile, pulse 103, blood pressure 93/55, respirations 25, saturation 95%, currently on room air. GENERAL: The patient is awake and alert, in no apparent distress. LUNGS: Good air entry bilaterally. Crackles are present. There is no prolonged expiratory phase or wheezing appreciated. HEART: Normal rate. Regular. ABDOMEN: Soft, nontender, and nondistended. Bowel sounds are positive. MUSCULOSKELETAL: There is trace to 1+ pitting in the left lower extremity. The right lower extremity is surgically absent. LABORATORY DATA: WBC 15.7 and gently downtrending, hemoglobin 7.5 also downtrending, platelets 381,000. Bicarb 9, chloride 120, sodium 142. Creatinine 5.17, which is gently downtrending. Troponin is 0.19 and up trending. BNP 2943, which is in historic high. TSH 0.16, free T4 is low. Alkaline phosphatase and creatinine are elevated. AST, ALT, and total bilirubin are within the normal limits. Urinalysis is positive for white blood cell, red blood cells, leukocyte esterase, yeast, and bacteria. Vancomycin trough is 11.5. Blood cultures x2, urine culture, influenza A and B are negative to date. IMAGING DATA: 1. CT of the brain demonstrates no evidence of acute intracranial hemorrhage. There was a recent left posterior cerebral artery distribution infarct. Lytic lesion involving the parietal skull, likely represents myeloma or other metastatic disease. 2. CT of the abdomen and pelvis demonstrates hepatic and osseous metastatic disease, and a right pleural effusion. This is mild. 3. Chest x-ray demonstrates no acute cardiopulmonary x-ray demonstrates persistent right upper lobe infiltrate. There is a right-sided pleural effusion also noted. ASSESSMENT: 1. Acute hypoxic respiratory failure. 2. Atrial fibrillation with rapid ventricular response. 3. Severe sepsis. 4. Right upper lobe pulmonary infiltrate. 5. Pleural effusion. 6. Chronic kidney disease 4. 7. Metastatic cancer. 8. Dementia, very advanced. 9. Subacute cerebrovascular accident. DISCUSSION AND PLAN: At this point, the patient has extraordinarily advanced dementia and is in a bed-bound state and oriented x1 at baseline. Supportive care will be continued including antibiotics. She has horrendous acidosis. Bicarb drip will be initiated. Palliative Care consult has already been placed. Ultimately, transitioning home with comfort measures only would be reasonable at this point. We will discuss this with family through time. In the meantime, the patient will remain a full code. Job ID: [id number]
[2019-07-18] MEDS ORDERED: Dextrose 5% in Water 1,000 ML IV PRN (00:34)
[2019-07-18] MEDS ORDERED: Dextrose 50% Abboject 50 ML SYRINGE SLOW IVP PRN (00:34)
[2019-07-18] MEDS ORDERED: HumaLOG 300 UNITS/3 ML VIAL SC PRN ×2 (00:34)
[2019-07-18 08:36] LABS: Anion Gap 19 mmol/L (10-20); BUN (Urea Nitrogen) 77 mg/dL (9.8-20.1); Calc. Creatinine Clearance 8 mL/min (70-130); Calcium 8.1 mg/dL (7.8-10.44); Chloride 123 mmol/L (98-107); Estimated GFR-MDRD 9; Glucose 217 mg/dL (83-110); Potassium 4.4 mmol/L (3.5-5.1); Sodium 146 mmol/L (136-145)
[2019-07-18 08:39] LABS: Carbon Dioxide 8 mmol/L (23-31)
[2019-07-18] MEDS ORDERED: Non-Formulary Item 1 EACH (Multivitamin [Multi-Vitamin Daily] 1 TABLET) PO SCH (09:00)
[2019-07-18] MEDS: Famotidine/PF 20 mg/2ml Vial SLOW IVP SCH (09:42)
[2019-07-18] MEDS: Heparin 5,000 UNITS/ML VIAL SC SCH ×2 (09:42→21:44)
[2019-07-18] MEDS: Multivit, Therapeutic 1 TAB PO SCH (09:43)
[2019-07-18] MEDS: Insulin Glargine 15 UNITS in Pre-Filled Syringe 1 EACH SC SCH (09:43)
[2019-07-18] MEDS: PRO STAT AWC PO SCH ×2 (09:47→21:43)
[2019-07-18] MEDS: Zinc Sulfate 220 MG CAP PO SCH (09:47)
[2019-07-18 11:08] LABS: Hemoglobin 7.2 g/dL (12.0-16.0); Mean Corpuscular HGB CONC 31.7 g/dL (32.0-36.0); Mean Corpuscular Hemoglobin 29.1 pg (27.0-31.0); Mean Platelet Volume 8.3 fL (7.4-10.4); Platelet Count 375 thou/uL (130-400); RBC Distribution Width 18.5 % (11.5-14.5); Red Blood Cell (RBC) Count 2.47 mill/uL (4.20-5.40); White Blood Cell (WBC) Count 16.2 thou/uL (4.8-10.8)
[2019-07-18 11:17] LABS: Band 10 % (5-11); Eosinophils 1 % (0-10); Lymphocytes 8 % (21-51); MDiff Complete? YES; Monocytes 3 % (0-10); Neutrophil 78 % (42-75); Nucleated RBC 2 % (0); Platelet Morphology Comment Appears Adequate; Polychromasia SLIGHT = 2-3 cells (100X) (0-2/hpf)
[2019-07-18] MEDS: Sodium Bicarbonate 150 MEQ in Dextrose 5% in Water 1,000 ML IV SCH (16:16)
--- NOTE | 2019-07-18 16:17 | PRG ---
DATE OF SERVICE: 07/18/2019 SERVICE: Pulmonary Medicine. INTERVAL HISTORY: The patient has been doing poorly from respiratory standpoint. Her blood pressures remain quite marginal. Her kidney injury has gotten worse. She cannot provide any additional elements of the history. She appears slightly toxic. She has a bicarb drip running, seems to be tolerating that. Outside of this, there has been no interval change to her condition. Nursing reports no overnight events. PHYSICAL EXAMINATION: VITAL SIGNS: Afebrile currently. Pulse 109, blood pressure 110/56, respirations 17, saturation 96%, currently on room air. GENERAL: The patient is encephalopathic. HEENT: Normocephalic and atraumatic. Sclerae white. Conjunctivae pink. Oral mucosa is moist without lesions. LUNGS: Decent air entry. No crackles are appreciated. There is some rhonchi, particularly on the left. HEART: Normal rate and regular. ABDOMEN: Soft, nontender, nondistended. Bowel sounds are positive. MUSCULOSKELETAL: No cyanosis or clubbing. There is trace to 1+ pitting throughout. LABORATORY DATA: WBC 16.2, hemoglobin 7.2, platelets 375,000. Bicarb continues to trend downward at 8 despite being on a bicarb drip. Anion gap is gently up trending. Sodium 146, chloride 123, creatinine 5.61 and is up trending. Urinalysis is positive for pyuria, bacteria, and yeast. Vancomycin trough is 11.4. Urine culture is growing yeast species. Blood cultures x2 and influenza A and B are unremarkable. The yeast is greater than 100,000 colony-forming units. ASSESSMENT: 1. Acute hypoxic respiratory failure, resolved. 2. Severe sepsis. 3. Urinary tract infection secondary to yeast. 4. Right upper lobe pulmonary infiltrate, likely secondary to aspiration. 5. Atrial fibrillation with rapid ventricular response, nearly rate controlled. 6. Acute kidney injury on chronic kidney disease 4. 7. Dementia, very advanced. 8. Subacute cerebrovascular accident. 9. Metastatic cancer. DISCUSSION AND PLAN: I will put the patient on antifungal therapy treating this urinary tract infection as though were real. There is a possibility that the nonresolving pneumonia in the right upper lobe is fungal in origin. This was not yet something that was previously identified or treated. I will get a lactic acid level. We will continue our bicarb drip. Ultimately, the patient is doing quite poorly. If she has further deterioration, she remains a full code. That being said, she is unlikely to do well intermediate if she requires aggressive interventions. She will likely require dialysis before the end of this hospital stay unless her kidneys recover in the next 24 to 48 hours. She has a very severe acidosis, is doing okay, keeping up with that today. I will check an ABG to make certain that she does not have severe acidosis. Job ID: [id number]
[2019-07-18 16:26] LABS: Lactic Acid 2.9 mmol/L (0.5-2.2)
[2019-07-18] MEDS ORDERED: Micafungin 100 MG in Sodium Chloride 0.9% 100 ML IVPB SCH (17:00)
[2019-07-18] MEDS: Diltiazem 125 MG in Sodium Chloride 0.9% 100 ML IVPB SCH (17:25)
[2019-07-18] MEDS: Cefepime 1 GM in Sodium Chloride 0.9% 100 ML IVPB SCH (21:43)
--- NOTE | 2019-07-18 22:35 | PDOC.HOSPP ---
- Subjective Encounter Date: 07/18/19 Subjective: Encephalopathic and not able to five any history. - Objective Vital Signs & Weight: Vital Signs (12 hours) Temp 07/18/19 19:40 98.0 F 07/18/19 15:31 97.6 F 07/18/19 11:34 97.4 F L Weight Admit Weight 134 lb 7 oz Weight 134 lb 7 oz Most Recent Monitor Data Heart Rate from ECG 94 NIBP 111/54 NIBP BP-Mean 73 Respiration from ECG 17 SpO2 97 I&O: 07/17/19 07/18/19 07/19/19 06:59 06:59 06:59 Intake Total 564 2547 1050 Output Total 25 200 0 Balance 539 2347 1050 Result Diagrams: 07/18/19 08:11 07/18/19 08:11 Additional Labs: Accuchecks 07/18/19 07/18/19 07/18/19 20:32 16:37 10:56 POC Glucose 104 154 H 200 H 07/18/19 07/17/19 05:42 23:47 POC Glucose 271 H 353 H Hospitalist ROS - Medication Medications: Active Medications Generic Name Dose Route Start Last Admin Trade Name Freq PRN Reason Stop Dose Admin Ascorbic Acid 500 mg 07/17/19 21:00 07/18/19 21:43 Vitamin C PO Not Given BID ROHIT Famotidine 20 mg 07/17/19 09:00 07/18/19 09:42 Pepcid SLOW IVP 20 mg DAILY ROHIT Administration Heparin Sodium (Porcine) 5,000 units 07/17/19 09:00 07/18/19 21:44 Heparin SC 5,000 units BID ROHIT Administration Cefepime HCl 1 gm/ Sodium 100 mls @ 200 mls/hr 07/17/19 20:00 07/18/19 21:43 Chloride IVPB 100 mls 2000 ROHIT Administration Diltiazem HCl 125 mg/ Sodium 125 mls @ 0 mls/hr 07/17/19 01:00 07/18/19 17:25 Chloride IVPB 125 mls INF ROHIT Administration Protocol Titrate Sodium Bicarbonate 150 meq/ 1,150 mls @ 75 mls/hr 07/17/19 22:15 07/18/19 16: 16 Dextrose/Water IV 1,150 mls .[id number] ROHIT Administration Insulin Glargine 15 units/ 0.15 mls @ 0 mls/hr 07/18/19 09:00 07/18/19 09:43 Miscellaneous Medication SC 0.15 mls QAM ROHIT Administration Micafungin Sodium 100 mg/ 100 mls @ 100 mls/hr 07/18/19 17:00 07/18/19 17:26 Sodium Chloride IVPB 100 mls 1700 ROHIT Administration Insulin Human Lispro 0 units 07/18/19 00:34 07/18/19 06:08 Humalog SC 4 unit .MILD SLIDING SCALE PRN Administration Mild Correctional Scale Insulin Human Lispro 0 units 07/18/19 00:34 07/18/19 01:06 Humalog SC 5 unit .BEDTIME SLIDING SC PRN Administration Bedtime Correctional Scale Morphine Sulfate 4 mg 07/17/19 14:11 07/18/19 00:07 Morphine SLOW IVP 4 mg Q4H PRN Administration Moderate to Severe Pain (6-10) Multivitamins 1 tab 07/18/19 09:00 07/18/19 09:43 Theragran PO Not Given DAILY ROHIT Pro-Stat Awc Liquid 0 each 07/17/19 21:00 07/18/19 21:43 PO Not Given BID ROHIT Zinc Sulfate 220 mg 07/18/19 09:00 07/18/19 09:47 Zinc Sulfate PO Not Given DAILY ROHIT - Exam General Appearance: NAD, awake alert Heart: no murmur, no gallops, no rubs, normal peripheral pulses, irregular Respiratory: CTAB, no wheezes, no rales, no ronchi, normal chest expansion, no tachypnea, normal percussion Gastrointestinal: soft, non-distended, normal bowel sounds, no palpable masses, no hepatomegaly, no splenomegaly, no bruit Extremities: no cyanosis, no clubbing, no edema Skin: normal turgor Musculoskeletal: normal tone Psychiatric: not oriented Hosp A/P (1) Atrial fibrillation with RVR Code(s): I48.91 - UNSPECIFIED ATRIAL FIBRILLATION Status: Acute (2) Metastatic cancer Code(s): C79.9 - SECONDARY MALIGNANT NEOPLASM OF UNSPECIFIED SITE Status: Acute (3) Pneumonia Code(s): J18.9 - PNEUMONIA, UNSPECIFIED ORGANISM Status: Acute Qualifiers: Laterality: right Lung location: upper lobe of lung (4) Sepsis Code(s): A41.9 - SEPSIS, UNSPECIFIED ORGANISM Status: Acute (5) ANATOLY (acute kidney injury) Code(s): N17.9 - ACUTE KIDNEY FAILURE, UNSPECIFIED Status: Acute (6) Acute worsening of stage 4 chronic kidney disease Code(s): N18.4 - CHRONIC KIDNEY DISEASE, STAGE 4 (SEVERE) Status: Acute (7) Diabetes Code(s): E11.9 - TYPE 2 DIABETES MELLITUS WITHOUT COMPLICATIONS Status: Chronic Qualifiers: Diabetes mellitus type: type 2 Diabetes mellitus complication status: with kidney complications Diabetes mellitus complication detail: with chronic kidney disease Chronic kidney disease stage: stage 3 (moderate) (8) HTN (hypertension) Code(s): I10 - ESSENTIAL (PRIMARY) HYPERTENSION Status: Chronic Qualifiers: Hypertension type: essential hypertension Qualified Code(s): I10 - Essential (primary) hypertension - Plan Remains encephalopathic. Has acute on chronic kidney disease. Has acidosis. On bicarb gtt, but may need dialysis. Nephrology consulted. Pulm following. Adding long acting insulin.
[2019-07-19] MEDS: Diltiazem 125 MG in Sodium Chloride 0.9% 100 ML IVPB SCH (01:31)
[2019-07-19 04:03] LABS: Phosphorus 6.6 mg/dL (2.3-4.7)
[2019-07-19 04:06] LABS: Anion Gap 20 mmol/L (10-20); BUN (Urea Nitrogen) 80 mg/dL (9.8-20.1); Calc. Creatinine Clearance 7 mL/min (70-130); Carbon Dioxide 12 mmol/L (23-31); Chloride 118 mmol/L (98-107); Estimated GFR-MDRD 9; Glucose 90 mg/dL (83-110); Magnesium 2.2 mg/dL (1.6-2.6); Sodium 146 mmol/L (136-145)
[2019-07-19 04:28] LABS: Anisocytosis SLIGHT = 6-15 cells (100X) (0-5/hpf); Band 11 % (5-11); Hemoglobin 6.8 g/dL (12.0-16.0); Lymphocytes 7 % (21-51); MDiff Complete? YES; Mean Corpuscular HGB CONC 32.1 g/dL (32.0-36.0); Mean Corpuscular Hemoglobin 29.3 pg (27.0-31.0); Mean Corpuscular Volume 91.3 fL (78.0-98.0); Mean Platelet Volume 8.2 fL (7.4-10.4); Metamyelocyte 1 % (0-0); Monocytes 3 % (0-10); Neutrophil 78 % (42-75); Nucleated RBC 3 % (0); Platelet Count 348 thou/uL (130-400); RBC Distribution Width 18.9 % (11.5-14.5); Red Blood Cell (RBC) Count 2.33 mill/uL (4.20-5.40); White Blood Cell (WBC) Count 17.5 thou/uL (4.8-10.8)
[2019-07-19 07:29] VITALS: TEMP 99.2
[2019-07-19] MEDS: Sodium Bicarbonate 150 MEQ in Dextrose 5% in Water 1,000 ML IV SCH (11:03)
[2019-07-19] MEDS: Ascorbic Acid 500 mg Chewable Tablet PO SCH (11:04)
[2019-07-19] MEDS: Famotidine/PF 20 mg/2ml Vial SLOW IVP SCH (11:04)
[2019-07-19] MEDS: Heparin 5,000 UNITS/ML VIAL SC SCH (11:04)
[2019-07-19] MEDS: Insulin Glargine 15 UNITS in Pre-Filled Syringe 1 EACH SC SCH (11:04)
[2019-07-19] MEDS: PRO STAT AWC PO SCH (11:05)
[2019-07-19] MEDS: Zinc Sulfate 220 MG CAP PO SCH (11:05)
[2019-07-19] MEDS: Multivit, Therapeutic 1 TAB PO SCH (11:05)
[2019-07-19] MEDS: Morphine 4 MG/ML VIAL SLOW IVP PRN (11:07)
--- NOTE | 2019-07-19 15:54 | PDOC.PALCO ---
Palliative Care Consult - Consult Details Requesting Physician: Dr Cespedes Reason for Consult: goals of care, advance directives assistance Family Members Present: None - Pertinent HPI Ms Marina is familiar to the palliative care team. She was discharged to [facility], family had wished for hospice, however secondary to benefits only the skilled stay was covered by benefits. [facility] Care was to follow. Patient was sent back to [facility] from [facility] secondary to abdominal pain with no urine output. Patient was evaluated in the emergency room and admitted to IM for management of sepsis, pneumonia, acute on chronic renal failure. - Pertinent PMH lung mass/Metastatic cancer, chronic kideny disease IV, History of CVA, DM II, dementia, HTN - Social History Smoking Status: Former smoker Smoking: no tobacco exposure Alcohol Use: none Drug Use History: none Living [facility]uation[facility] ([facility] from [facility]) - Medications MAR Reviewed: Yes - Allergies Allergies/Adverse Reactions: Allergies Allergy/AdvReac Type Severity Reaction Status Date / Time No Known Drug Allergies Allergy Verified 11/28/18 04:23 - Subjective Awake, confused, poor historian. Unable to obtain a reliable ROS - ROS Non Response: due to mental status - Objective Vital Signs: Vital Signs - Most Recent Temp Pulse Resp BP Pulse Ox 99.2 F 96 07/19/19 07:28 07/18/19 08:00 Palliative Performance Scale: 30 - Physical Exam Constitutional: cachectic, encephalitic, ill appearing HEENT: moist MMs Deviation from normal: Adventicious, more pronounced with expiration. Diminished to bases Cardiovascular: irregular Gastrointestinal: soft, non-tender, positive bowel sounds Genitourinary: quigley catheter Musculoskeletal: no cyanosis Deviation from normal: right lower ext amputation Deviation from normal: encephalopathic - Problem List (1) ANATOLY (acute kidney injury) Code(s): N17.9 - ACUTE KIDNEY FAILURE, UNSPECIFIED Status: Acute (2) Acute worsening of stage 4 chronic kidney disease Code(s): N18.4 - CHRONIC KIDNEY DISEASE, STAGE 4 (SEVERE) Status: Acute (3) Atrial fibrillation with RVR Code(s): I48.91 - UNSPECIFIED ATRIAL FIBRILLATION Status: Acute (4) Lung mass Code(s): R91.8 - OTHER NONSPECIFIC ABNORMAL FINDING OF LUNG FIELD Status: Acute (5) Metastatic cancer Code(s): C79.9 - SECONDARY MALIGNANT NEOPLASM OF UNSPECIFIED SITE Status: Acute (6) Palliative care by specialist Code(s): Z51.5 - ENCOUNTER FOR PALLIATIVE CARE Status: Acute (7) Sepsis Code(s): A41.9 - SEPSIS, UNSPECIFIED ORGANISM Status: Acute (8) Dementia Code(s): F03.90 - UNSPECIFIED DEMENTIA WITHOUT BEHAVIORAL DISTURBANCE Status: Chronic (9) Severe protein-calorie malnutrition Code(s): E43 - UNSPECIFIED SEVERE PROTEIN-CALORIE MALNUTRITION Status: Chronic - Plan/Recommendations Plan: Will coordinate family meeting with Son and patient sister to revisit resuscitation status and goals of care that are related to chronic and complex morbidities. Reach out to [facility] to see if Ms Marina qualifies for inpatient hospice, or if she discharges back to [facility] if they will accept as a evelio care. Please refer to Carlos Reynolds RNmetal numerical tool programmer notes in note section. [30] minutes spent on this encounter with >50% of the time in counseling and coordination of care. Thank you for this very appropriate consult.
--- NOTE | 2019-07-19 17:50 | PRG ---
DATE OF SERVICE: 07/19/2019 SERVICE: Pulmonary Medicine. INTERVAL HISTORY: The patient is doing okay from a respiratory standpoint. She appears to be a little bit of respiratory distress. She cannot provide any additional elements of the history. She continues to be essentially somnolent. Nursing reports no significant overnight events otherwise. Multiple conversations being had with various family members to work on establishing a plan of care moving forward. At this point, we really come to the point where we need to get aggressive, or transition over to comfort care only. PHYSICAL EXAMINATION: VITAL SIGNS: Afebrile, pulse 88, blood pressure 114/58, respirations 14, and saturation 95%, currently on room air. GENERAL: The patient is somnolent. HEENT: Normocephalic and atraumatic. Sclerae are white. Conjunctivae are pink. Oral mucosa is moist without lesions. LUNGS: Good air entry bilaterally. Rhonchi are present. Dependent crackles are noted. HEART: Normal rate and regular. ABDOMEN: Soft, nontender, and nondistended. Bowel sounds are positive. MUSCULOSKELETAL: No cyanosis or clubbing. There is trace pitting in bilateral lower extremities. NEUROLOGIC: Grossly nonfocal. LABORATORY DATA: WBC 7.5, hemoglobin 6.8, and platelets 348,000. Creatinine 5.72, which is roughly stable, BUN 80. Basic metabolic profile is otherwise unremarkable except for a sodium of 146. Her bicarb is minimally improved to 12. Phosphorus 6.6, magnesium 2.2. Amos is growing yeast. Influenza A and B, and blood cultures x2 are unremarkable. ASSESSMENT: 1. Acute hypoxic respiratory failure, resolved. 2. Severe sepsis. 3. Urinary tract infection secondary to yeast. 4. Right upper lobe pulmonary infiltrate, likely secondary to aspiration. 5. Atrial fibrillation with rapid ventricular response, returned to sinus rhythm. 6. Acute kidney injury, on chronic kidney disease 4. 7. Dementia, advanced. 8. Metastatic cancer. 9. Subacute cerebrovascular accident. DISCUSSION AND PLAN: We will continue our discussion with the family. Unfortunately, had depressed them to make a decision about whether or not to be aggressive, including intubation, and dialysis versus transitioning over to comfort care only. Now palliative Care conversations will be had later this afternoon, and a final disposition will be discussed. Critical Care will continue to follow along, particularly while the patient is in such a tenuous situation. Job ID: [id number]
--- NOTE | 2019-07-20 11:59 | DIS ---
DATE OF ADMISSION: 07/16/2019 DATE OF DISCHARGE: 07/19/2019 DISCHARGE DIAGNOSES: 1. Pneumonia. 2. Severe sepsis. 3. Acute kidney injury on chronic kidney disease stage 4. 4. Metastatic cancer of unknown primary. 5. Lung mass. 6. Evidence of metastatic disease to the liver and bone. 7. Diabetes mellitus. 8. Hypertension. 9. Atrial fibrillation with rapid ventricular response. 10. Acute metabolic acidosis. 11. Urinary tract infection due to yeast. 12. Advanced dementia. 13. Abdominal pain. 14. History of cerebrovascular accident. 15. History of peripheral vascular disease. HISTORY OF PRESENT ILLNESS: This patient is an 79-year-old female with advanced dementia, who was recently admitted to the hospital with osteomyelitis requiring amputation of toes. During that stay, the patient had further workup including a CT of the chest revealing a 3-1/2 cm lung mass. The patient's advanced dementia apparently prompted the family not to pursue biopsy of this mass and the patient was discharged, however, she returned to the hospital through the ER after having had some abdominal pain two days prior with a Amos catheter placed and having no urine output during that time. The patient was found in the emergency department to have acute kidney injury, atrial fibrillation with rapid ventricular response and acute metabolic acidosis. HOSPITAL COURSE: The patient was admitted to the intermediate care unit, where she was aggressively hydrated. She was started on antibiotics for what appeared to be urinary tract infection that ultimately grew out yeast species. She was treated aggressively for her atrial fibrillation with diltiazem drip and her acidosis was treated primarily with bicarbonate drip. The patient appeared to fail to respond to any of these therapies and in fact appeared to be progressing with her severe metabolic acidosis. Nephrology was consulted as she appeared to necessitate acute dialysis. Palliative Care was also consulted and the family was convened and had a long conversation with the patient's son regarding her overall prognosis with continued conversation with Pulmonary Critical Care and Palliative Care. They did ultimately make the decision to have the patient be discharged on hospice services given the underlying cancer with metastatic disease and extremely poor prognosis related to her acute illness. PHYSICAL EXAMINATION: VITAL SIGNS: On the day of discharge, heart rate was 88, BP 114/58, respirations 18. GENERAL APPEARANCE: The patient was profoundly obtunded. She was not responsive. She was breathing very aggressively. HEART: Irregular, intermittently tachycardic. LUNGS: Notable for diffuse rales. ABDOMEN: Benign. DISPOSITION: The patient is discharged to hospice. There is no activity or dietary restrictions. MEDICATIONS: Will be discontinued and will be resumed per hospice orders. TIME SPENT: Total time in discharge activities was 45 minutes. Job ID: [id number]
--- NOTE | 2019-07-23 15:19 | EKG ---
Test Reason : Blood Pressure : / mmHG Vent. Rate : 174 BPM Atrial Rate : 187 BPM P-R Int : 000 ms QRS Dur : 062 ms QT Int : 238 ms P-R-T Axes : 000 057 252 degrees QTc Int : 404 ms Atrial fibrillation with rapid ventricular response Cannot rule out Anterior infarct , age undetermined Abnormal ECG Confirmed by FERN JONES ([id number]), index editor VALENTIN SCHAFFER ([id number]) on 07/23/2019 3:18:55 PM Referred By: Confirmed By:FERN JONES
== END 2019-07-19 12:54 | disposition hospice, inpatient (51) | DRG 871 ==
LOC: ERS 19:04 → IMCU/EMU 21:18
PROVIDERS: ADMIT Internal Medicine; ATTEND Internal Medicine
DX: A41.9 Sepsis, unspecified organism (principal); Z51.5 Encounter for palliative care; Z66 Do not resuscitate; E43 Unspecified severe protein-calorie malnutrition; J96.01 Acute respiratory failure with hypoxia; J69.0 Pneumonitis due to inhalation of food and vomit; N18.4 Chronic kidney disease, stage 4 (severe); J90 Pleural effusion, not elsewhere classified; B37.49 Other urogenital candidiasis; N17.9 Acute kidney failure, unspecified; C78.00 Secondary malignant neoplasm of unspecified lung; R65.20 Severe sepsis without septic shock; I48.91 Unspecified atrial fibrillation; E11.22 Type 2 diabetes mellitus with diabetic chronic kidney disease; F03.90 Unspecified dementia, unspecified severity, without behavioral disturbance, psychotic disturbance, mood disturbance, and anxiety; E11.51 Type 2 diabetes mellitus with diabetic peripheral angiopathy without gangrene; I12.9 Hypertensive chronic kidney disease with stage 1 through stage 4 chronic kidney disease, or unspecified chronic kidney disease; Z96.0 Presence of urogenital implants; Z68.25 Body mass index [BMI] 25.0-25.9, adult; Z86.73 Personal history of transient ischemic attack (TIA), and cerebral infarction without residual deficits; Z89.511 Acquired absence of right leg below knee; Z90.49 Acquired absence of other specified parts of digestive tract; Z87.891 Personal history of nicotine dependence; Z74.01 Bed confinement status; Z79.899 Other long term (current) drug therapy
CPT/HCPCS: 36415; 36416; 70450; 71045; 74176; 80048; 80053; 80202; 81003; 81015; 82550; 82553; 83605; 83690; 83735; 83880; 84100; 84439; 84443; 84484; 85025; 86850; 86900; 86901; 87040; 87086; 87804; 93005; 96361; 96365; 96366; 96368; 96375; 96376; J0692; J1644; J1815; J1956; J2248; J2270; J3370; J3475; J3490; J7070; S0028